=== PATIENT | female | born 1940 | race Caucasian/White ===

== ENCOUNTER 2017-01-25 06:39 | Inpatient (IN) | payer OTHER, MEDICARE ==
[2017-01-03 11:51] VITALS: Ht 167.6 cm; Wt 128.1 kg
--- NOTE | 2017-01-03 13:05 | PAT Medication Instructions ---
Service Date Jan 03, 2017. Current Home Medication List Adalimumab (Humira), 40 MG INJ EVERY OTHER WEEK Aspirin (Aspirin Ec), 81 MG PO QPM Atenolol (Tenormin), 25 MG PO QPM Benazepril (Lotensin), 20 MG PO QAM Calcium Ascorbate (Vitamin C), 1 TAB PO QDL Calcium Carbonate (Tums), 1 TAB PO QDD Cholecalciferol (Vitamin D3), 1 TAB PO BIDM Clonazepam (Klonopin), 0.5 MG PO BID PRN for Anxiety/Agitation Coenzyme Q10 (Ubidecarenone) (Co Q10), 2 CAP PO QDL Duloxetine HCl (Cymbalta), 1 CAP PO QAM Ferrous Sulfate (Slow Fe), 1 TAB PO BID Fiber (Fiber Select Gummies), 2 TAB PO QDD Folic Acid (Folvite), 1 TAB PO BID Hydrochlorothiazide (Hctz), 25 MG PO QAM Ibuprofen (Motrin), 600 MG PO TID PRN for Pain Lactobacillus Rhamnosus (GG) (Culturelle), 1 CAP PO QDL Methotrexate (Methotrexate), 2.5 MG PO WK Multivitamin (Multivitamin), 1 TAB PO QDD Pantoprazole (Protonix), 40 MG PO BIDM Potassium Ext Rel (Klor-Con), 10 MEQ PO QAM Ranitidine (Zantac), 150 MG PO QPM Ropinirole (Requip), 2 TAB PO HS Simvastatin (Zocor), 20 MG PO QPM Medication Instructions For Your Scheduled Surgery - Check with surgeon for instructions: Ibuprofen (Motrin), 600 MG PO TID PRN for Pain - 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: Methotrexate (Methotrexate), 2.5 MG PO WK Adalimumab (Humira), 40 MG INJ EVERY OTHER WEEK - Hold the following medications 2 weeks prior to surgery: Coenzyme Q10 (Ubidecarenone) (Co Q10), 2 CAP PO QDL - Hold the following medications the morning of surgery: Potassium Ext Rel (Klor-Con), 10 MEQ PO QAM Multivitamin (Multivitamin), 1 TAB PO QDD Hydrochlorothiazide (Hctz), 25 MG PO QAM Ferrous Sulfate (Slow Fe), 1 TAB PO BID Lactobacillus Rhamnosus (GG) (Culturelle), 1 CAP PO QDL Folic Acid (Folvite), 1 TAB PO BID Cholecalciferol (Vitamin D3), 1 TAB PO BIDM Calcium Ascorbate (Vitamin C), 1 TAB PO QDL Benazepril (Lotensin), 20 MG PO QAM - Take the following medications the morning of surgery with a sip of water: Pantoprazole (Protonix), 40 MG PO BIDM Duloxetine HCl (Cymbalta), 1 CAP PO QAM Clonazepam (Klonopin), 0.5 MG PO BID PRN for Anxiety/Agitation (if needed) - Hold the following medications as scheduled the night before surgery: Ropinirole (Requip), 2 TAB PO HS - Take the following medications as scheduled the night before surgery: Simvastatin (Zocor), 20 MG PO QPM Ranitidine (Zantac), 150 MG PO QPM Pantoprazole (Protonix), 40 MG PO BIDM Folic Acid (Folvite), 1 TAB PO BID Fiber (Fiber Select Gummies), 2 TAB PO QDD Clonazepam (Klonopin), 0.5 MG PO BID PRN for Anxiety/Agitation (if needed) Cholecalciferol (Vitamin D3), 1 TAB PO BIDM Calcium Carbonate (Tums), 1 TAB PO QDD Atenolol (Tenormin), 25 MG PO QPM Aspirin (Aspirin Ec), 81 MG PO QPM (okay to continue per surgeon) If you have any questions please call us at [phone] or [phone] or [phone]
--- NOTE | 2017-01-03 13:52 | DIAGNOSTIC IMAGING REPORT ---
CHEST PREADMISSION(PA/LAT) HISTORY:76 yearsFemalepreoperative exam COMPARISON: Cervical spine radiographs of same day TECHNIQUE: Frontal and lateral views of the chest FINDINGS: Cardiac silhouette is enlarged with atherosclerosis of the aorta. There is no pneumothorax, pleural effusion or focal airspace consolidation. There is eventration of the right hemidiaphragm. No overt pulmonary edema. Multilevel endplate changes are seen throughout the spine degenerative changes also seen within the shoulders. IMPRESSION: 1. Cardiomegaly without overt pulmonary edema. 2. Eventration of the right hemidiaphragm. The above report was generated using voice recognition software. It may contain grammatical, syntax or spelling errors. Electronically signed by: Jaya Ya M.D. 01/03/2017 1:51 PM Dictated Date/Time: 01/03/2017 1:50 PM
--- NOTE | 2017-01-03 13:53 | DIAGNOSTIC IMAGING REPORT ---
CERVICAL SPINE 2 OR 3 VIEWS HISTORY: Preoperative evaluation PREOP, RHEUMATOID ARTHRITIS COMPARISON: None. Findings: Flexion extension and neutral views of the cervical spine demonstrate moderate degenerative disc change primarily the mid to lower cervical region. There is no evidence for positional subluxation. IMPRESSION: Degenerative change. No evidence for positional subluxation The above report was generated using voice recognition software. It may contain grammatical, syntax or spelling errors. Electronically signed by: Lemuel Don M.D. 01/03/2017 1:51 PM Dictated Date/Time: 01/03/2017 1:50 PM
[2017-01-03 14:34] LABS: BASO % 0.1 %; BASO ABS # 0.01 K/uL (0-0.2); COMPLETE YES; EOS % 0.3 %; HEMATOCRIT 38.1 % (37-47); IG% 0.1 %; LYMPH % 8.2 %; LYMPH ABS # 0.55 K/uL (1.2-3.4); MEAN CELL VOLUME 93.8 fL (80-100); MEAN CORPUSCULAR HEMOGLOBIN 32.3 pg (25-34); MEAN CORPUSCULAR HGB CONC 34.4 g/dl (32-36); MEAN PLATELET VOLUME 9.1 fL (7.4-10.4); MONO % 1.5 %; NEUT % 89.8 %; PLATELET COUNT 348 K/uL (130-400); RED BLOOD COUNT 4.06 M/uL (4.2-5.4); WHITE BLOOD COUNT 6.68 K/uL (4.8-10.8)
[2017-01-03 14:40] LABS: PARTIAL THROMBOPLASTIN RATIO 1.1; PROTHROMBIN TIME (PATIENT) 10.2 SECONDS (9.0-12.0)
[2017-01-03 14:48] LABS: URINE APPEARANCE CLEAR (CLEAR); URINE BILIRUBIN NEG (NEG); URINE COLOR YELLOW; URINE NITRITE NEG (NEG); UROBILINOGEN NEG (NEG); ZZUR CULT IF INDIC CLEAN CATCH NO
[2017-01-03 14:59] LABS: BUN/CREATININE RATIO 19.6 (10-20); CALCIUM 9.2 mg/dl (8.5-10.1); CREATININE 0.76 mg/dl (0.60-1.20); POTASSIUM 4.4 mmol/L (3.5-5.1)
[2017-01-03 15:03] LABS: MANUAL MICROSCOPIC REQUIRED? NO; REVIEW REQ? NO
[2017-01-03 15:13] LABS: ESTIMATED AVERAGE GLUCOSE 111 mg/dl; HA1C FLAG Normal (Normal)
--- NOTE | 2017-01-03 16:00 | History and Physical ---
History & Physical Date Jan 03, 2017. Chief Complaint Left Knee Pain History of Present Illness Ms Melgar is a 76 year old female who is here for a follow up of left knee pain. She presents with pain on the left side. She states that the symptoms have been chronic non-traumatic. Patient is here today for pre-operative visit for her left knee, scheduled for left knee TKA to be performed by Dr. Herring on . The symptoms occur constantly with intermittent worsening. The problem is unchanged. Currently the patient states that the symptoms are moderate- severe. The pain is described as aching, discomforting and throbbing. The symptoms occur continuously. She rates her worst pain as 10/10. She rates her current pain as 7/10. The symptoms are aggravated by ascending stairs, daily activities, descending stairs, first steps while awake, movement, repetitive activities, sleeping in any position, squatting and walking. Yisel states that the symptoms are relieved by no specific activity. In addition to left knee pain the patient is also experiencing decreased mobility, difficulty bending, difficulty going to sleep, limping, nighttime awakening, pain, stiffness, tenderness and weakness. Pertinent negatives include chills and fever. The patient has had a previous x-ray. Prior NSAIDs include ibuprofen. She has been treated with a corticosteroid injection on the left side. Patient has been treated with previous visco supplementation. Past Medical/Surgical History Past Medical History 1. Hypertension 2. High Cholesterol 3. Sleep Apnea 4. Pulmonary Hypertension 5. Anxiety 6. h/o cardiac catherization May 2016 7. GERD 8. Morbid Obesity Additional History Hypertension: Yes Bleeding Tendencies: No Infectious Diseases: No Allergies Coded Allergies: No Known Allergies (Unverified , 01/03/17) Home Medications Scheduled Adalimumab (Humira), 40 MG INJ EVERY OTHER WEEK Aspirin (Aspirin Ec), 81 MG PO QPM Atenolol (Tenormin), 25 MG PO QPM Benazepril (Lotensin), 20 MG PO QAM Calcium Ascorbate (Vitamin C), 1 TAB PO QDL Calcium Carbonate (Tums), 1 TAB PO QDD Cholecalciferol (Vitamin D3), 1 TAB PO BIDM Coenzyme Q10 (Ubidecarenone) (Co Q10), 2 CAP PO QDL Duloxetine HCl (Cymbalta), 1 CAP PO QAM Ferrous Sulfate (Slow Fe), 1 TAB PO BID Fiber (Fiber Select Gummies), 2 TAB PO QDD Folic Acid (Folvite), 1 TAB PO BID Hydrochlorothiazide (Hctz), 25 MG PO QAM Lactobacillus Rhamnosus (GG) (Culturelle), 1 CAP PO QDL Methotrexate (Methotrexate), 2.5 MG PO WK Multivitamin (Multivitamin), 1 TAB PO QDD Pantoprazole (Protonix), 40 MG PO BIDM Potassium Ext Rel (Klor-Con), 10 MEQ PO QAM Ranitidine (Zantac), 150 MG PO QPM Ropinirole (Requip), 2 TAB PO HS Simvastatin (Zocor), 20 MG PO QPM Scheduled PRN Clonazepam (Klonopin), 0.5 MG PO BID PRN for Anxiety/Agitation Ibuprofen (Motrin), 600 MG PO TID PRN for Pain Physical Examination Skin: warm/dry, no rash Eyes: normal inspection, EOMI, sclerae normal Respiratory/Chest: lungs clear, normal breath sounds, no respiratory distress Cardiovascular: regular rate, rhythm, no edema, no murmur Abdomen / GI: normal bowel sounds, non tender, + pertinent finding (obesity) Addiitonal Comments: Left Knee Physical Exam Exam Findings Details Knee ROM L * Active ROM - Flexion: 115 degrees, Extension: 0 degrees, Factors: pain, Description: active painful range of motion. Passive ROM - Flexion: 115 degrees, Extension: 0 degrees, Factors: pain, Description: passive painful range of motion. Knee ROM R * Active ROM - Flexion: 135 degrees, Extension: 0 degrees, Factors: pain, Description: active painful range of motion. Passive ROM - Flexion: 135 degrees, Extension: 0 degrees, Factors: pain, Description: passive painful range of motion. Strength LE Normal Strength Description - Normal lower extremity: Bilateral. Knee * Inspection - Gait: antalgic. Alignment - Right: neutral, Left: valgus. Ecchymosis - Right: negative, Left: negative. Effusion - Right: mild, Left: mild. Swelling - Right: mild, Left: mild. Flexibility - Right: normal, Left: normal. Maximum tenderness - Right: medial joint line, lateral joint line, patella, Left: medial joint line, lateral joint line, patella. Patella exam - Crepitation - Right: mild, Left: mild. Patella position - Right: neutral, Left: neutral. Tilt - Right: equal, Left: equal. [facility]'s - lateral - Right: Positive, Left: Positive. Bev's - medial - Right: Positive, Left: Positive. Knee Comments No calf tenderness Knee Normal Inspection - Atrophy - Right: Absent, Left: Absent. Skin - Right: Normal, Left: Normal. Patella exam - Apprehension - Right: Negative, Left: Negative. Q-angle - Right: Normal, Left: Normal. Klever's - Right: Negative, Left: Negative. Posterior drawer - Right: Negative, Left: Negative. Anterior drawer - Right: Negative, Left: Negative. Valgus stress - Right: Negative, Left : Negative. Varus stress - Right: Negative, Left: Negative. Extensor lag - Right : Normal, Left: Normal. Neurovascular LE Normal Neurovascular examination including reflexes, sensation , and pulses is within normal limits. Left Knee X-ray Xrays reviewed of the Left knee showing findings consistent with degenerative joint disease including joint space narrowing, subchondral sclerosis and peripheral osteophyte formation. no acute bony pathology, overall valgus alignment. Impression: Severe degenerative joint disease of the left knee with valgus deformity, no acute bony pathology noted. Diagnosis Left Knee Osteoarthritis Further care discussed with patient and at this point in time has failed conservative measures and would like to proceed with a left total knee replacement. Plan on discharge will be home with home health physical therapy. DVT prophalaxis with TEDs, SCDs and will also place on aspirin 81 mg p.o. b.i.d. for a month postop. Patient will have follow up appointment in our office two weeks post op for staple/suture removal and re-evaluation. Patient otherwise has no other questions or concerns.
[2017-01-25] VITALS (9 sets, daily range): BP systolic 129–185; BP diastolic 82–100; PULSE 69–84; TEMP 36.5–36.9; O2SAT 94–100
[~2017-01-25] VITALS: Ht 167.6 cm; Wt 128.1 kg
[~2017-01-25 06:39] MED LIST: ACETAMINOPHEN 500 MG TAB PO SCH; ADAL1INJ INJ; ASPI81TA28 PO; ATEN-173 PO; BENA20TA14 PO; CALC500C3 PO; CALC500T72 PO; CEFAZOLIN 3000 MG/65 ML D5W 65 ML IV SCH; CHOL1000 PO; CLON0.5T3 PO; COEN1CAP28 PO; CYM/30 PO; CeleBREX 200 MG CAP PO SCH; DEXAMETHASONE 4 MG TAB PO SCH; FAMOTIDINE 20 MG TAB PO SCH; FERR142T PO; FIBE1CHW PO; FOLI1TAB7 PO; FURO20TA PO; GABAPENTIN 300 MG CAP PO SCH; IBUP600T44 PO; LACT1CAP3 PO; LACTATED RINGER'S 1000ML 1,000 ML IV SCH; LACTATED RINGER'S 1000ML IV SCH; METH2.5T PO; METOCLOPRAMIDE HCL 10 MG TAB PO SCH; MULT-506 PO; PANT40TA PO; POLY335019 PO; POTA20TA16 PO; ROPI1TAB PO; ROPIVACAINE 5MG/ML 30 ML 150 MG, BUPIVACAINE/EPINEPHR 0.5% MPF 30 ML, KETOROLAC TROMETH... INFIL SCH; SIMV20TA2 PO; ZNTT/150 PO
[2017-01-25] MEDS ORDERED: BUPIVACAINE 0.25% 30 ML VIAL ONE (06:44)
[2017-01-25] MEDS ORDERED: BUPIVACAINE 0.5 % 5 MG/1 ML PF 10ML VIAL ONE (06:44)
--- NOTE | 2017-01-25 06:57 | History & Physical Bridge Note ---
H&P Re-Evaluation Bridge Note: I have examined the patient, reviewed the History & Physical and in the interval since the performance of the History & Physical I have noted the following changes of clinical significance: No changes noted
[2017-01-25] MEDS ORDERED: FENTANYL CITRATE INJ 50 MCG/1 ML 2 ML VIAL ONE (07:27)
[2017-01-25] MEDS ORDERED: MIDAZOLAM HCL 1 MG/ML 2ML VIAL ONE ×2 (07:27)
[2017-01-25] MEDS ORDERED: EpHEDrine SULFATE INJ 50 MG/ML AMP IV PRN (07:30)
[2017-01-25] MEDS ORDERED: ONDANSETRON INJ 2 MG/ML 2 ML VIAL IV PRN ×2 (07:30→11:00)
[2017-01-25] MEDS ORDERED: FENTANYL CITRATE INJ 50 MCG/1 ML 2 ML VIAL IV PRN (07:30)
[2017-01-25] MEDS ORDERED: ATROPINE SULFATE 0.1 MG/ML 5ML SYR IV PRN (07:30)
[2017-01-25] MEDS ORDERED: BACITRACIN 50000 UNIT VIAL ONE (07:51)
[2017-01-25] MEDS ORDERED: POVIDONE-IODINE OP SOLN 30 ML BTL ONE (07:51)
[2017-01-25] MEDS ORDERED: ORTHO JOINT ANESTHETIC ONE (07:51)
[2017-01-25] MEDS ORDERED: CEFAZOLIN IV 3,000 MG/65 ML D5W IV ONE (08:18)
[2017-01-25] MEDS ORDERED: GABAPENTIN 300 MG CAP PO ONE (08:18)
[2017-01-25] MEDS ORDERED: METOCLOPRAMIDE HCL 10 MG TAB PO ONE (08:18)
[2017-01-25] MEDS ORDERED: FAMOTIDINE 20 MG TAB ONE (08:18)
[2017-01-25] MEDS ORDERED: DEXAMETHASONE 4 MG TAB ONE (08:18)
[2017-01-25] MEDS ORDERED: CeleBREX 200 MG CAP ONE (08:18)
[2017-01-25] MEDS ORDERED: ACETAMINOPHEN 500 MG TAB PO ONE (08:18)
[2017-01-25] MEDS ORDERED: LIDOCAINE HCL 2% 2 ML VIAL (20MG/ML) ONE (10:19)
[2017-01-25] MEDS ORDERED: PROPOFOL IV EMULSION 10 MG/ML 20 ML VIAL IV ONE (10:19)
--- NOTE | 2017-01-25 10:21 | [facility] Operative Report ---
Operative Report Operative Date Jan 25, 2017. Pre-Operative Diagnosis Severe Degenerative Joint Disease Left Knee Post-Operative Diagnosis Severe Degenerative Joint Disease Left Knee Procedure(s) Performed Left Total Knee Arthroplasty utilizing [employer] journey 2 patient matched size 5 femur 5 tibia 13 constrained Martha [address] 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 Description of Procedure After proper prepping and draping of the left lower extremity anterior midline incision was made over the region of the extensor extensor mechanism after meticulous hemostasis was obtained and maintained in subcutaneous tissues a medial parapatellar incision was made The patella was subluxed lateralward the medial lateral gutter were cleaned from any hypertrophic synovitis and scar tissue of the distal femoral block was placed and the distal femoral osteotomy cut was made subsequently the chamfers anterior and posterior osteotomy cuts were made utilizing the 4-in-1 block the tibia was subsequently subluxed anteriorward medial and ateral meniscal remnants were excised in their entirety remnants of the anterior and posterior cruciate ligaments were excised in their entirety excellent exposure of the proximal tibia was obtained the tibial osteotomy guide was placed on the proximal tibial osteotomy cut was made once again the knee was irrigated with copious amounts of sterile saline solution the patella was subsequently everted lateralward thickened scar tissue around the patella was removed the patella was subsequently cut utilizing a freehand technique and was drilled prepared for final preparation and placement of patella socially flexion-extension gaps were checked and the equal and symmetric trials were placed to the appropriate femoral and tibial trials with poly-spacer being placed for equal flexion and extension gaps and full range of motion including extension to 0 and flexion to 140 the trial components after having been taken to recovery range of motion was subsequently removed meticulous hemostasis was obtained and maintained subsequently a knee block injection of joint cocktail including ropivacaine 0.5% 150 mg. Bupivacaine 0.5 % epinephrine 1-200,030 mL's toradol 30 mg dexamethasone 4 mg ketamine 10 mg clonidine 100 micrograms normal saline solution 30 mg was infiltrated into the soft tissues of the posterior knee medial lateral gutters and periosteal synovium special attention was paid to protect neurovascular structures at all times subsequently trial components having been removed the knee was irrigated with sterile saline solution. debris was removed the proximal tibia was subsequently prepared and was made ready for the placement of the tibial component tibial component was also cemented and tamped into position the femoral component was subsequently placed and cemented in the position the patellar component was subsequently cemented in position because hemostasis once again obtained and maintained wound having been thoroughly irrigated with debridement and debridement lavage was performed as well as a medial parapatellar incision closed with #1 Vicryl in interrupted fashion subcutaneous was closed with #2 Vicryl skin was closed with skin clips. PA-C was necessary for prepping and drapping as well as wound closure of deep fascia Sub cutaneous tissue and skin and was necessary for the case. A sterile compressive dressing was placed patient was taken to recovery in stable condition of report dictated by Nima I attest to the content of the Intraoperative Record and any orders documented therein. Any exceptions are noted below. I attest to the content of the Intraoperative Record and any orders documented therein. Any exceptions are noted below.
[2017-01-25] MEDS ORDERED: TRAMADOL HCL 50 MG TAB PO PRN (11:00)
[2017-01-25] MEDS ORDERED: MoRPHine SULFATE 4 MG/ML 1 ML CARP\\VIAL IV PRN (11:00)
[2017-01-25] MEDS ORDERED: CLONAZEPAM 0.5 MG TAB PO PRN (11:00)
[2017-01-25] MEDS ORDERED: MAGNESIUM HYDROXIDE SUSP 30 ML UDC PO PRN (11:00)
[2017-01-25] MEDS ORDERED: BISACODYL 10 MG SUPP PR PRN (11:00)
[2017-01-25] MEDS ORDERED: ALUMINUM/MAGNESIUM/SIMETH (MAALOX MAX) 30 ML UDC PO PRN (11:00)
[2017-01-25] MEDS ORDERED: MoRPHine SULFATE 2 MG/ML CARP IV PRN (11:00)
[2017-01-25] MEDS ORDERED: NON-FORMULARY MEDICATION (Coenzyme Q10 (Ubidecarenone) (Co Q10) 2 CAP) PO SCH (11:00)
--- NOTE | 2017-01-25 11:26 | DIAGNOSTIC IMAGING REPORT ---
LEFT KNEE 2 VIEWS History: Left total knee arthroplasty. Degenerative arthritis. Postop. FINDINGS: The patient is status post a left total knee arthroplasty. The hardware is intact. No fracture or dislocation. Skin edwin and surgical drains are in place. IMPRESSION: Left total knee arthroplasty. No evidence for hardware complication. Electronically signed by: Thompson Carpenter M.D. 01/25/2017 11:25 AM Dictated Date/Time: 01/25/2017 11:24 AM
--- NOTE | 2017-01-25 12:18 | Anesthesiology Progress Note ---
Anesthesia Post Op Note Date & Time Jan 25, 2017 at 12:18 Vital Signs Pain Intensity: 0 Vital Signs Past 12 Hours Date Time Temp Pulse Resp B/P (MAP) Pulse Ox O2 Delivery O2 Flow Rate FiO2 01/25/17 12:10 36.7 73 16 125/88 100 Nasal Cannula 2 01/25/17 12:00 36.7 72 16 161/92 100 Nasal Cannula 2 01/25/17 11:50 36.7 73 16 147/104 100 Nasal Cannula 2 01/25/17 11:40 36.7 73 16 163/91 100 Nasal Cannula 4 01/25/17 11:30 73 16 167/97 100 Nasal Cannula 4 01/25/17 11:20 74 16 153/87 100 Nasal Cannula 4 01/25/17 11:10 78 16 134/81 100 Nasal Cannula 4 01/25/17 11:00 76 16 143/83 100 Nasal Cannula 4 01/25/17 10:54 36.4 76 16 141/80 100 Mask 10 01/25/17 08:04 36.5 69 20 185/100 98 Room Air Notes Mental Status: alert / awake / arousable, participated in evaluation Pt Amnestic to Procedure: Yes Nausea / Vomiting: adequately controlled Pain: adequately controlled Airway Patency, RR, SpO2: stable & adequate BP & HR: stable & adequate Hydration State: stable & adequate Neuraxial Anesthesia: was administered, sensory block is resolving Anesthetic Complications: no major complications apparent
[2017-01-25] MEDS: TRANEXAMIC ACID INJ 1,000 MG in SODIUM CHLORIDE 0.9% 100ML 100 ML IV SCH (12:27)
[2017-01-25] MEDS: SODIUM CHLORIDE 0.9% 1000ML 1,000 ML IV SCH ×2 (12:42→20:45)
[2017-01-25] MEDS: KETOROLAC TROMETHAMINE 15 MG/ML VIAL IV. SCH ×2 (14:27→20:44)
[2017-01-25] MEDS: ACETAMINOPHEN 500 MG TAB PO SCH ×2 (14:43→22:05)
[2017-01-25] MEDS: CEFAZOLIN IV 2,000 MG in DEXTROSE 5% 50ML 50 ML IV SCH (17:37)
[2017-01-25] MEDS: PANTOprazole SOD 40 MG TAB PO SCH (17:38)
[2017-01-25] MEDS: FERROUS GLUCONATE 324 MG TAB PO SCH (17:38)
[2017-01-25] MEDS: CHOLECALCIFEROL 1000 INTER.UNIT TAB PO SCH (17:58)
[2017-01-25] MEDS: DOCUSATE SODIUM 100 MG CAP PO SCH (20:45)
[2017-01-25] MEDS: ASPIRIN 81 MG ECTAB PO SCH (20:46)
[2017-01-25] MEDS: OXYCODONE HCL 10 MG TABCR (OXYCONTIN) PO SCH (20:46)
[2017-01-25] MEDS: ROPINIROLE HCL 1 MG TAB PO SCH (20:47)
[2017-01-25] MEDS: SENNA 8.6 MG TAB PO SCH (20:48)
[2017-01-25] MEDS: SIMVASTATIN 20 MG TAB PO SCH (20:49)
[2017-01-25] MEDS: OXYCODONE HCL IR 5 MG TAB (IMMEDIATE RELEASE) PO PRN (22:04)
[2017-01-26] VITALS (7 sets, daily range): BP systolic 100–162; BP diastolic 64–81; PULSE 68–76; TEMP 36.4–36.9; O2SAT 95–98
[2017-01-26] MEDS: CEFAZOLIN IV 2,000 MG in DEXTROSE 5% 50ML 50 ML IV SCH (01:25)
[2017-01-26] MEDS: KETOROLAC TROMETHAMINE 15 MG/ML VIAL IV. SCH ×2 (01:25→07:32)
[2017-01-26 06:15] LABS: HEMATOCRIT 30.8 % (37-47); MEAN CELL VOLUME 98.7 fL (80-100); MEAN CORPUSCULAR HEMOGLOBIN 32.1 pg (25-34); MEAN CORPUSCULAR HGB CONC 32.5 g/dl (32-36); MEAN PLATELET VOLUME 9.1 fL (7.4-10.4); PLATELET COUNT 281 K/uL (130-400); RED BLOOD COUNT 3.12 M/uL (4.2-5.4); WHITE BLOOD COUNT 10.81 K/uL (4.8-10.8)
[2017-01-26] MEDS: ACETAMINOPHEN 500 MG TAB PO SCH ×3 (06:27→22:16)
[2017-01-26] MEDS: SODIUM CHLORIDE 0.9% 1000ML 1,000 ML IV SCH (06:27)
[2017-01-26 06:46] LABS: CALCIUM 8.5 mg/dl (8.5-10.1); POTASSIUM 4.3 mmol/L (3.5-5.1)
--- NOTE | 2017-01-26 06:56 | Orthopedic Progress Note ---
Orthopedic Progress Note Date of Service Jan 26, 2017. Subjective Post OP Day: 1 (s/p Left TKA) Reports: feeling well, pain controlled w PO medications, Denies: complaints, chest pain, SOB, nausea / vomiting, light headedness, calf pain Objective calves soft nontender, N/V intact, capillary refill less than 2 sec., dressing C /D/I, A&O x3, toes mobile Date Time Temp Pulse Resp B/P (MAP) Pulse Ox O2 Delivery O2 Flow Rate FiO2 01/26/17 03:39 36.9 69 16 129/80 (96) 95 Room Air 01/25/17 23:51 Room Air 01/25/17 22:54 36.9 75 18 129/83 (98) 95 Room Air 01/25/17 19:50 36.8 84 16 158/85 (109) 96 Room Air 01/25/17 19:30 96 Room Air 01/25/17 16:00 Nasal Cannula 2.0 01/25/17 15:29 36.7 78 18 147/86 (106) 98 Nasal Cannula 2.0 01/25/17 14:23 36.7 80 18 137/88 (104) 94 Nasal Cannula 2.0 01/25/17 13:34 36.6 81 18 140/82 (101) 94 Nasal Cannula 2.0 01/25/17 13:05 36.8 72 19 154/87 (109) 99 Nasal Cannula 2.0 01/25/17 12:35 36.9 78 18 167/93 (117) 100 Nasal Cannula 2.0 01/25/17 12:35 Nasal Cannula 2.0 01/25/17 12:35 100 Nasal Cannula 2.0 01/25/17 12:10 36.7 73 16 125/88 100 Nasal Cannula 2 01/25/17 12:00 36.7 72 16 161/92 100 Nasal Cannula 2 01/25/17 11:50 36.7 73 16 147/104 100 Nasal Cannula 2 01/25/17 11:40 36.7 73 16 163/91 100 Nasal Cannula 4 01/25/17 11:30 73 16 167/97 100 Nasal Cannula 4 01/25/17 11:20 74 16 153/87 100 Nasal Cannula 4 01/25/17 11:10 78 16 134/81 100 Nasal Cannula 4 01/25/17 11:00 76 16 143/83 100 Nasal Cannula 4 01/25/17 10:54 36.4 76 16 141/80 100 Mask 10 01/25/17 08:04 36.5 69 20 185/100 98 Room Air Laboratory Results 24 Hours: Test 01/26/17 05:40 Hematocrit 30.8 % Hemoglobin 10.0 g/dL Assessment & Plan Assessment: POD #1 s/p Left TKA -PT/OT -dvt proph with maty/scd/asa -plan for d/c home with [facility] when stable 1. Hypertension 2. High Cholesterol 3. Sleep Apnea 4. Pulmonary Hypertension 5. Anxiety 6. h/o cardiac catherization May 2016 7. GERD 8. Morbid Obesity Inhouse Planning DVT Prophylaxis: TEDs, SCDs, ASA Discharge Planning Discharge Planning: home with home health DVT Prophylaxis: TEDs, SCDs, ASA Therapy: Physical Therapy
[2017-01-26] MEDS: PANTOprazole SOD 40 MG TAB PO SCH ×2 (07:30→17:33)
--- NOTE | 2017-01-26 07:46 | Anesthesiology Progress Note ---
Anesthesia Post Op Note Date & Time Jan 26, 2017 at 07:46 Vital Signs Pain Intensity: 6 Vital Signs Past 12 Hours Date Time Temp Pulse Resp B/P (MAP) Pulse Ox O2 Delivery O2 Flow Rate FiO2 01/26/17 03:39 36.9 69 16 129/80 (96) 95 Room Air 01/25/17 23:51 Room Air 01/25/17 22:54 36.9 75 18 129/83 (98) 95 Room Air 01/25/17 19:50 36.8 84 16 158/85 (109) 96 Room Air Notes Mental Status: alert / awake / arousable Pt Amnestic to Procedure: Yes Nausea / Vomiting: adequately controlled Pain: adequately controlled Airway Patency, RR, SpO2: stable & adequate BP & HR: stable & adequate Hydration State: stable & adequate Neuraxial Anesthesia: sensory block resolved Anesthetic Complications: no major complications apparent
[2017-01-26] MEDS: FERROUS GLUCONATE 324 MG TAB PO SCH ×3 (08:39→17:33)
[2017-01-26] MEDS: DOCUSATE SODIUM 100 MG CAP PO SCH ×2 (08:40→20:55)
[2017-01-26] MEDS: CHOLECALCIFEROL 1000 INTER.UNIT TAB PO SCH ×2 (08:40→17:33)
[2017-01-26] MEDS: DULOXETINE (CYMBALTA) 30 MG CAP PO SCH (08:41)
[2017-01-26] MEDS: ASPIRIN 81 MG ECTAB PO SCH ×2 (08:41→20:55)
[2017-01-26] MEDS: OXYCODONE HCL 10 MG TABCR (OXYCONTIN) PO SCH ×2 (08:41→20:55)
[2017-01-26] MEDS: MULTIVITAMIN TAB PO SCH (08:42)
[2017-01-26] MEDS: POTASSIUM CHLORIDE 10 MEQ TABCR PO SCH (08:42)
[2017-01-26] MEDS: ENALAPRIL MALEATE 10 MG TAB PO SCH (08:43)
[2017-01-26] MEDS: OXYCODONE HCL IR 5 MG TAB (IMMEDIATE RELEASE) PO PRN ×3 (08:44→19:34)
[2017-01-26] MEDS ORDERED: PANTOprazole SOD 40 MG TAB PO SCH (09:00)
--- NOTE | 2017-01-26 17:27 | Discharge Instructions ---
Discharge Instructions Date of Service Jan 26, 2017. Admission Reason for Admission: Left Knee Osteoarthritis Discharge Discharge Diagnosis / Problem: Left Total Knee Replacement Discharge Goals Goal(s): Decrease discomfort, Improve function, Increase independence Activity Recommendations Activity Limitations: as noted below Weightbearing Status: Left weightbearing (as tolerated) . Instructions / Follow-Up Instructions / Follow-Up ACTIVITY RECOMMENDATIONS: SELF CARE INSTRUCTIONS AFTER TOTAL KNEE REPLACEMENT A. You may need to continue a physical therapy program after discharge from the hospital. There are several options available to you. Your doctor will assist you in selecting the best one for you. 1. An out-patient facility 2 to 3 times a week for therapy or home therapy. 2. Continue working on all exercises taught to you in the hospital. Your goals should be to increase bending of your knee to 90 degrees and beyond and to fully straighten your knee. B. You may progress at your own pace from walking with a walker or crutches to a cane; then to no assistive devices. C. Make walking a part of your daily routine. Be up as much as comfortable with rest periods throughout the day. Rest with leg elevation is very important. Use the ice wrap frequently for the first 3-4 weeks. D. There are no restrictions on activities. You may ride in a car, shop, participate in casino floor person and all social activities. E. Wear the long elastic stockings (JAELYN hose) 20 hours a day for 2 weeks after surgery. They can be removed several times a day for laundering and for a bath. F. You may shower, no tub baths until cleared by your doctor. SPECIAL CARE INSTRUCTIONS: VERY IMPORTANT TO READ AND REVIEW A. There are a few signs you need to watch for after you are home. Call [facility] [place] if you notice any of the followin. Increased severe knee pain. Some pain is expected especially when you exercise. 2. Increased swelling in your leg or knee; pain or swelling of the calf muscle in either lower leg. 3. Any fluid drainage from the incision. 4. Shortness of breath or chest pain. B. Please call [facility] at if you have any concerns or questions about your operation or recovery. The doctor or his nurse will return your call promptly. C. You must take antibiotics before dental work, bladder, bowel or other surgery. Your doctor will provide you with a permanent care to carry describing this precaution. IMPORTANT: * REMEMBER TO TAKE ASPIRIN, 81 MG, TWICE DAILY FOR 4 WEEKS UNLESS OTHERWISE DIRECTED. THIS IS YOUR BLOOD THINNER. * HIGH RISK PATIENTS MAY BE PRESCRIBED A STRONGER BLOOD THINNER. THIS WILL BE PROVIDED AT DISCHARGE. * CALL IF INCREASED PAIN, REDNESS, DRAINAGE OR FEVER GREATER THAT 101. * WEAR JAELYN HOSE 20 HOURS PER DAY FOR 2 WEEKS. * YOU MAY HAVE A LARGE BAND-AID LIKE DRESSING (SILVERON). THIS WILL REMAIN ON YOUR INCISION FOR 7 DAYS, THEN CAN BE REMOVED. IF INCISION IS LEAKING THROUGH DRESSING, CALL THE OFFICE . Prevena- This is a large suction dressing covering your incision. This will help pull any excess drainage from the wound and allow your incision to heal properly. You may shower with this if you can keep the unit outside of the shower. If any bleeding or leakage is noted please call your doctor's office. This will remain on your incision for 7 days and then should be removed. This can be done yourself or by the home nursing staff if applicable. The entire unit is disposable once removed. Once removed, keep incision clean and dry. If redness or drainage is noted, please call your surgeon. FOLLOW UP VISIT: If appointment is not already scheduled: Please call [facility] [place] to make a follow-up appointment for 2 weeks after your surgery at . Current Hospital Diet Patient's current hospital diet: Regular Diet Discharge Diet Recommended Diet: Regular Diet Procedures Procedures Performed: Left Total Knee Arthroplasty utilizing [employer] journey 2 patient matched size 5 femur 5 tibia 13 constrained Martha 35 oval patella Pending Studies Studies pending at discharge: no Laboratory Results Hemoglobin A1c Test 01/03/17 13:10 Range/Units Estimated Average Glucose 111 mg/dl Hemoglobin A1c 5.5 4.5-5.6 % Medical Emergencies . Who to Call and When: Medical Emergencies: If at any time you feel your situation is an emergency, please call 911 immediately. . Non-Emergent Contact Non-Emergency issues call your: Primary Care Provider . "Provider Documentation" section prepared by Lemuel Rosales. . VTE Core Measure Inpt VTE Proph given/why not?: Other Anticoagulation, T.E.D. Stockings, SCD's [place] Drug Monitoring Program Search Results: patient reviewed within database, no issues identified
[2017-01-26] MEDS ORDERED: OXYSR10 PO (17:31)
[2017-01-26] MEDS ORDERED: ASPEC81 PO (17:31)
[2017-01-26] MEDS ORDERED: ACET-24 PO (17:31)
[2017-01-26] MEDS ORDERED: RXC5 PO (17:31)
[2017-01-26] MEDS: ROPINIROLE HCL 1 MG TAB PO SCH (20:56)
[2017-01-26] MEDS: SENNA 8.6 MG TAB PO SCH (20:56)
[2017-01-26] MEDS: SIMVASTATIN 20 MG TAB PO SCH (20:57)
[2017-01-27] MEDS: OXYCODONE HCL IR 5 MG TAB (IMMEDIATE RELEASE) PO PRN ×3 (00:35→13:08)
[2017-01-27] MEDS: ACETAMINOPHEN 500 MG TAB PO SCH (06:00)
[2017-01-27 06:04] VITALS: BP 117/72; PULSE 75; TEMP 37.2
--- NOTE | 2017-01-27 06:50 | Orthopedic Progress Note ---
Orthopedic Progress Note Date of Service Jan 27, 2017. Subjective Post OP Day: 2 (s/p Left TKA) Reports: feeling well, pain controlled w PO medications, Denies: complaints, chest pain, SOB, nausea / vomiting, light headedness, calf pain Objective calves soft nontender, N/V intact, capillary refill less than 2 sec., dressing C /D/I (prevena intact), A&O x3, toes mobile Date Time Temp Pulse Resp B/P (MAP) Pulse Ox O2 Delivery O2 Flow Rate FiO2 01/27/17 06:04 37.2 75 16 117/72 (87) 01/27/17 00:17 Room Air 01/26/17 22:55 36.6 68 18 100/66 (77) 95 Room Air 01/26/17 20:53 72 114/67 (83) 96 Room Air 01/26/17 16:00 Room Air 01/26/17 15:48 36.6 73 16 105/64 (78) 96 Room Air 01/26/17 11:37 36.8 76 18 162/81 (108) 98 Room Air 01/26/17 10:43 96 Room Air 01/26/17 07:53 36.4 71 18 133/74 (93) 96 01/26/17 07:15 Room Air Assessment & Plan Assessment: POD #2 s/p Left TKA -PT/OT -dvt proph with maty/scd/asa -plan for d/c home with [facility] when stable 1. Hypertension 2. High Cholesterol 3. Sleep Apnea 4. Pulmonary Hypertension 5. Anxiety 6. h/o cardiac catherization May 2016 7. GERD 8. Morbid Obesity Discharge Planning Discharge Planning: home with home health DVT Prophylaxis: TEDs, SCDs, ASA Therapy: Physical Therapy
[2017-01-27] MEDS: PANTOprazole SOD 40 MG TAB PO SCH (07:22)
[2017-01-27] MEDS: ASPIRIN 81 MG ECTAB PO SCH (07:23)
[2017-01-27] MEDS: OXYCODONE HCL 10 MG TABCR (OXYCONTIN) PO SCH (07:23)
[2017-01-27] MEDS: DULOXETINE (CYMBALTA) 30 MG CAP PO SCH (07:23)
[2017-01-27] MEDS: FERROUS GLUCONATE 324 MG TAB PO SCH ×2 (07:23→13:08)
[2017-01-27] MEDS: CHOLECALCIFEROL 1000 INTER.UNIT TAB PO SCH (07:24)
[2017-01-27] MEDS: MULTIVITAMIN TAB PO SCH (07:24)
[2017-01-27] MEDS: DOCUSATE SODIUM 100 MG CAP PO SCH (07:24)
[2017-01-27] MEDS: POTASSIUM CHLORIDE 10 MEQ TABCR PO SCH (07:24)
[2017-01-27] MEDS: ENALAPRIL MALEATE 10 MG TAB PO SCH (07:25)
[2017-01-27 08:03] VITALS: BP 117/74; PULSE 70; TEMP 36.5; O2SAT 100
[2017-01-27 08:14] VITALS: O2SAT 100
[2017-01-27 12:45] VITALS: BP 117/74; PULSE 70; TEMP 36.5; O2SAT 100
--- NOTE | 2017-01-28 13:43 | DISCHARGE SUMMARY ---
DISCHARGE DIAGNOSIS: Degenerative joint disease left knee. SECONDARY DIAGNOSES: Hypertension, hypercholesterolemia, sleep apnea, pulmonary hypertension, anxiety, history of cardiac catheterization in 2016, gastroesophageal reflux disease, morbid obesity. CONSULTS: None. COMPLICATIONS: None. PROCEDURES: Left total knee arthroplasty performed by Dr. Herring on 01/25/2017. BRIEF HISTORY: As dictated in the history and physical. HOSPITAL SUMMARY: The patient was admitted on the above date and had the above-noted surgery performed which he tolerated well. On first postoperative day, she was feeling well and pain was controlled. She had no complaints. Calves were soft and nontender, neurovascularly intact. Dressings clean, dry and intact. Toes were mobile. Vital signs were stable. She was afebrile. Hemoglobin was 10.0 and she was started on physical therapy protocol and continued on DVT prophylaxis and pain management. By her second postoperative day, she was feeling well and had no complaints. Pain was controlled. Calves were nontender, neurovascularly intact. Dressings clean, dry and intact. Toes were mobile. Vital signs were stable. She was afebrile. She was progressing with physical therapy and it was felt that she could be discharged to home with home health services. For further review, please see chart. LAB AND X-RAY DATA: As per chart. DISCHARGE INSTRUCTIONS: The patient was discharged to home on 01/27/2017. DIET: Regular. ACTIVITY: Weightbearing as tolerated left lower extremity. Follow TK instruction sheets and special care instructions as noted. Follow up with Dr. Herring in 2 weeks. The patient to call for appointment if one has not been made for you. DISCHARGE MEDICATIONS: Acetaminophen 1000 mg p.o. q. 8 hours, aspirin 81 mg p.o. b.i.d., OxyContin 10 mg p.o. q. 12 hours, oxycodone 5-10 mg p.o. q. 4 hours p.r.n. Resume home meds as listed. Stop taking Humira, ibuprofen, methotrexate. After 30 days stop taking your aspirin tablet twice daily and resume once daily dosing.
== END 2017-01-27 14:07 | disposition home health service (06) | DRG 470 ==
LOC: C.ACU 06:39 → C.3E 11:07 → ENRESERV 11:31
PROVIDERS: ADMIT Orthopaedic Surgery; ATTEND Orthopaedic Surgery
PROC: 0SRD0J9 Replacement of Left Knee Joint with Synthetic Substitute, Cemented, Open Approach (ICD-10-PCS; principal; 2017-01-25 09:00)
DX: M17.12 Unilateral primary osteoarthritis, left knee (principal); I10 Essential (primary) hypertension; E78.5 Hyperlipidemia, unspecified; I27.2 Other secondary pulmonary hypertension; K21.9 Gastro-esophageal reflux disease without esophagitis; E66.01 Morbid (severe) obesity due to excess calories; Z79.82 Long term (current) use of aspirin; G47.30 Sleep apnea, unspecified; Z79.899 Other long term (current) drug therapy

== ENCOUNTER 2018-09-26 05:45 | Inpatient (IN) ==
--- NOTE | 2018-09-11 10:58 | Anesthesiology Consultation ---
Date of Service September 11, 2018 Assessment & Plan (1) Encounter for pre-operative examination: Chart Review Chart Review: Acceptable Risk for Surgery and Patient seen in Pre Admission Testing Consults Requested cardiac (Dr. Peterson) Note was received from Dr Peterson stating "She has not been seen since March of 2018, but if she is clinically unchanged since then, she is a reasonable candidate for the proposed surgery at a low to at most intermediate risk." Teaching & Discussion Pre-Anesthesia Teaching/Discussion Notes: Instructed NPO after midnight before surgery, except medications with 15 cc of water. Medication instructions provided according to the PAT guidelines. History Surgery Operation Date: 09/26/18 10:05 Proposed Procedures p Right Total Knee Arthroplasty - Pieter Herring DO Height/Weight Height: 5 ft 7 in Weight: 132.4 kg Allergies Allergy/AdvReac Type Severity Reaction Status Date / Time No Known Allergies Allergy Unverified 09/04/18 13:57 Medications Home Medications Medication Instructions Recorded Confirmed Last Taken Culturelle 1 cap PO QAM 09/04/18 09/04/18 Unknown Multivitamin Gummies 1 dose PO QPM 09/04/18 09/04/18 Unknown adalimumab [Humira] 1 dose SUBCUT UD 09/04/18 09/04/18 Unknown amlodipine 2.5 mg PO QAM 09/04/18 09/04/18 Unknown ascorbic acid (vitamin C) [Vitamin 500 mg PO QAM 09/04/18 09/04/18 Unknown C] aspirin 81 mg PO HS 09/04/18 09/04/18 Unknown benazepril 20 mg PO QAM 09/04/18 09/04/18 Unknown calcium carbonate [Calcium 500] 500 mg PO HS 09/04/18 09/04/18 Unknown carvedilol 3.125 mg PO BID 09/04/18 09/04/18 Unknown cholecalciferol (vitamin D3) 2,000 unit PO QAM 09/04/18 09/04/18 Unknown [Vitamin D3] clonazepam 0.5 mg PO DAILY PRN 09/04/18 09/04/18 Unknown cyanocobalamin (vitamin B-12) 1,000 mcg PO QAM 09/04/18 09/04/18 Unknown [Vitamin B-12] duloxetine 30 mg PO QAM 09/04/18 09/04/18 Unknown ferrous sulfate [Slow Fe] 142 mg PO Q OTHER DAY 09/04/18 09/11/18 Unknown folic acid 2 mg PO QPM 09/04/18 09/04/18 Unknown furosemide 40 mg PO QAM 09/04/18 09/04/18 Unknown inulin [Fiber Gummies] 1 dose PO QPM 09/04/18 09/04/18 Unknown methotrexate sodium 8 tab PO WK 09/04/18 09/04/18 Unknown pantoprazole 40 mg PO QAM 09/04/18 09/04/18 Unknown polyethylene glycol 3350 [Miralax] 17 g PO HS 09/04/18 09/04/18 Unknown potassium chloride [Klor-Con 10] 10 meq PO QAM 09/04/18 09/04/18 Unknown ranitidine HCl 150 mg PO HS PRN 09/04/18 09/04/18 Unknown ropinirole [Requip] 2 mg PO HS 09/04/18 09/04/18 Unknown simvastatin 20 mg PO PM 09/04/18 09/04/18 Unknown Past Medical History Medical History AAA (abdominal aortic aneurysm) PCP MONITORING Anxiety Cardiomegaly Chronic constipation GERD (gastroesophageal reflux disease) Glaucoma RT EYE Hiatal hernia History of benign breast biopsy History of migraine History of recent steroid use RECENTLY PRESCRIBED PREDNISONE FOR RA x 3 WEEKS. LAST DOSE 08/28/18 History of squamous cell carcinoma Hyperlipidemia Hypertension Mitral regurgitation Mild to Moderate Osteoarthritis Pulmonary hypertension Moderate (Pulmonary Artery Systolic Pressure - 52-57 mmHg) Raynaud's disease Restless leg syndrome Rheumatoid arthritis Sleep apnea DOES NOT TOLERATE CPAP Tricuspid regurgitation Moderate Past Family History Family History Mother Family history of diabetes mellitus Past Surgical History Surgical History History of cardiac cath 2016 - [facility] - NO STENTS/ANGIOPLASTY History of colonoscopy History of esophagogastroduodenoscopy (EGD) History of eye surgery RT EYE X 2 - LASER SECONDARY TO GLAUCOMA History of foot surgery RT History of squamous cell carcinoma excision History of total knee replacement LEFT Past Anesthesia History No Hx of Anesthesia Complications and No Family Hx of Anesthesia Complications History of PONV No Motion Sickness Screening History of Motion Sickness: No (ONLY IN CHILDHOOD) Social History Smoking Status: Never smoker Do You Dip or Chew Tobacco: No Hx Alcohol Use: No Hx Substance Use: No substance use type: does not use Exercise / Class Metabolic Activity III < 4 Walking/Shop/Light housework (Able to climb stairs one at a time. Denies CP or SOB. ) Review of Systems Patient denies chest pain, shortness of breath, dyspnea on exertion, cough, wheezing, palpitations. +joint pain (knee, toes) +acid reflux (mostly controlled with medications and diet) Physical Exam Vital Signs BP: 125/80 P: 71 R: 14 T: 97.8 SPO2: 98% on RA Constitutional + morbidly obese ENMT Mouth: + dentures (upper and lower) and + edentulous Thyromental Distance: > or= 3.5 Finger Breadths (4) Mallampati Class: II Neck normal visual inspection and trachea midline; neck extension not limited Respiratory normal respiratory effort Auscultation: lungs clear to auscultation bilaterally Cardiovascular Rate/Rhythm: regular rate and regular rhythm Heart Sounds: + murmur (3/6 murmur) Vessels: no carotid bruit Neurologic moves all extremities Psychiatric Orientation: alert and oriented x 3 Testing Electrocardiogram Date: 09/11/18 Sinus rhythm at 71 bpm with 1st degree AV block. Incomplete RBBB. When compared with ECG of 01/03/17, no significant change was found. Chest X-Ray Date: 09/11/18 Findings: + NAD and + cardiomegaly FINDINGS: The heart remains enlarged. There is stable elevation/eventration right hemidiaphragm. There is mild chronic interstitial thickening. There is no lobar consolidation. There are no pleural effusions. IMPRESSION: Stable cardiomegaly. No acute findings. Echocardiogram Date: 04/12/18 EF: 55-60% LV Function: normal 1. Moderate LVH. Normal wall motion. Normal left ventricular systolic function. 2. This is mild aortic stenosis, trace aortic insufficiency, mild to moderate mitral regurgitation, moderate tricuspid regurgitation, and mild pulmonic insufficiency. 3. Moderate pulmonary hypertension. (Pulmonary Artery Systolic Pressure - 52-57 mmHg) 4. Mild diastolic dysfunction with impaired relaxation (Grade I). Stress Test Date: 05/05/16 Type: nuclear (Lexiscan) Resting EF: 57% Based upon EKG criteria, this test is negative. Based upon the nuclear imaging findings, there is apical ischemia. Study is abnormal. (Patient had a heart cath to follow up on 05/25/16) Cardiac Catheterization Date: 05/25/16 Findings: + normal Angiographically normal coronary arteries, normal left ventriculogram, Moderate pumonary HTN, Moderate mitral regurgitation. Recommendations: Continue to optimize medical therapy and risk factor reduction for primary prevention of coronary artery disease. Cervical Spine Date: 09/11/18 FINDINGS: C7 is partially obscured on this exam. There is no evidence for C1-C2 instability during flexion or extension. There is moderate to severe multilevel disc space narrowing, osteophytosis and facet arthrosis. IMPRESSION: 1. No evidence for cervical spine instability during flexion and extension. 2. Moderate to severe multilevel degenerative disc disease and facet arthrosis. Laboratory Results 09/11/18 11:44 09/11/18 11:44 Blood Type B Positive 09/11/18 11:44 Antibody Screen NEGATIVE 09/11/18 11:44 PT 10.1 Seconds (9.0-12.0) 09/11/18 11:44 INR 1.0 (0.9-1.1) 09/11/18 11:44 APTT 26.7 Seconds (21.0-31.0) 09/11/18 11:44 Hemoglobin A1c 5.5 % (4.5-5.6) 09/11/18 11:44 Urine Color Yellow 09/11/18 Unknown Urine Appearance Clear (Clear) 09/11/18 Unknown Urine pH 7.5 (4.5-7.5) 09/11/18 Unknown Ur Specific [place] 1.009 (1.000-1.030) 09/11/18 Unknown Urine Protein Negative (Negative) 09/11/18 Unknown Urine Glucose (UA) Negative (Negative) 09/11/18 Unknown Urine Ketones Negative (Negative) 09/11/18 Unknown Urine Nitrite Negative (Negative) 09/11/18 Unknown Ur Leukocyte Esterase Negative (Negative) 09/11/18 Unknown 09/11/18 Unknown Urine Culture - Final Urine,Clean Catch Lactobacillus species
--- NOTE | 2018-09-11 10:58 | PAT Medication Instructions ---
Medication Instructions Date of Service September 11, 2018 Home Medications Culturelle 1 cap PO QAM Multivitamin Gummies 1 dose PO QPM adalimumab [Humira] 1 dose SUBCUT UD amlodipine 2.5 mg PO QAM ascorbic acid (vitamin C) 500 mg PO QAM aspirin 81 mg PO HS benazepril 20 mg PO QAM calcium carbonate [Calcium 500] 500 mg PO HS carvedilol 3.125 mg PO BID cholecalciferol (vitamin D3) 2,000 unit PO QAM clonazepam 0.5 mg PO DAILY NEEDED cyanocobalamin (vitamin B-12) 1,000 mcg PO QAM duloxetine 30 mg PO QAM ferrous sulfate [Slow Fe] 142 mg PO HS folic acid 2 mg PO QPM furosemide 40 mg PO QAM inulin [Fiber Gummies] 1 dose PO QPM methotrexate sodium 8 tab PO WK pantoprazole 40 mg PO QAM polyethylene glycol 3350 [Miralax] 17 g PO HS potassium chloride [Klor-Con 10] 10 meq PO QAM ranitidine HCl 150 mg PO HS NEEDED ropinirole [Requip] 2 mg PO HS simvastatin 20 mg PO PM ASK your prescriber and surgeon adalimumab [Humira] 1 dose SUBCUT DIRECTED methotrexate sodium 8 tab PO WK STOP taking 24 hours before surgery ropinirole [Requip] 2 mg PO HS DO NOT take the morning of surgery Culturelle 1 cap PO QAM ascorbic acid (vitamin C) 500 mg PO QAM benazepril 20 mg PO QAM cholecalciferol (vitamin D3) 2,000 unit PO QAM cyanocobalamin (vitamin B-12) 1,000 mcg PO QAM furosemide 40 mg PO QAM potassium chloride [Klor-Con 10] 10 meq PO QAM Take morning of surgery With a small sip of water, OTHERWISE NOTHING TO EAT OR DRINK AFTER MIDNIGHT: amlodipine 2.5 mg PO QAM carvedilol 3.125 mg PO BID clonazepam 0.5 mg PO DAILY NEEDED (stop 4 hours before surgery) duloxetine 30 mg PO QAM pantoprazole 40 mg PO QAM Take evening before surgery Multivitamin Gummies 1 dose PO QPM aspirin 81 mg PO HS calcium carbonate [Calcium 500] 500 mg PO HS carvedilol 3.125 mg PO BID clonazepam 0.5 mg PO DAILY NEEDED ferrous sulfate [Slow Fe] 142 mg PO HS folic acid 2 mg PO QPM inulin [Fiber Gummies] 1 dose PO QPM polyethylene glycol 3350 [Miralax] 17 g PO HS ranitidine HCl 150 mg PO HS NEEDED simvastatin 20 mg PO PM Other Notes If you have any questions please call us at [phone] or [phone] or [phone] or [phone]
--- NOTE | 2018-09-11 11:06 | History & Physical Report ---
Date of Service September 11, 2018 Date of Surgery: 09/26/18 Assessment & Plan (1) Tricompartment osteoarthritis of right knee: Risks and benefits of procedure discussed in detail today, patient would like to proceed with a right total knee arthroplasty @ [facility] as scheduled. will obtain cardiac clearance prior to surgery as well as obtain PATs at [facility]. Will place on ASA 81mg po bid x 1 month post op, f/u 2 weeks post op for routine post-operative care and xray, sooner if having any problems. will make arrangements for HHPT at the time of discharge. History of Present Illness Chief Complaint: right knee pain Primary Care Provider: Zoe Logan Ms Melgar is a 78 year old female who complains of right knee pain, presents for pre-op evaluation prior to a right total knee replacement at [facility]. She presents with pain and decreased range of motion on the right side. She states that the symptoms have been chronic non-traumatic. The symptoms occur intermittently and fluctuates. Currently the patient states that the symptoms are moderate-severe. The pain is described as aching, discomforting and sharp. The symptoms occur intermittently. The patient is experiencing pain in the following locations: anterior aspect and posterior aspect on the right side. She rates her current pain as 6/10. The symptoms are aggravated by daily activities, walking, weight bearing and repetitive activities. In addition to right knee pain the patient is also experiencing limping and weakness. Patient had left TKA done by Dr. Herring 2016. she has undergone previous cortisone injections as well as visco injections with mild relief. Allergies Allergy/AdvReac Type Severity Reaction Status Date / Time No Known Allergies Allergy Unverified 09/04/18 13:57 Home Medications Home Medications Medication Instructions Recorded Confirmed Type Culturelle 1 cap PO QAM 09/04/18 09/04/18 History Multivitamin Gummies 1 dose PO QPM 09/04/18 09/04/18 History adalimumab [Humira] 1 dose SUBCUT UD 09/04/18 09/04/18 History amlodipine 2.5 mg PO QAM 09/04/18 09/04/18 History ascorbic acid (vitamin C) [Vitamin 500 mg PO QAM 09/04/18 09/04/18 History C] aspirin 81 mg PO HS 09/04/18 09/04/18 History benazepril 20 mg PO QAM 09/04/18 09/04/18 History calcium carbonate [Calcium 500] 500 mg PO HS 09/04/18 09/04/18 History carvedilol 3.125 mg PO BID 09/04/18 09/04/18 History cholecalciferol (vitamin D3) 2,000 unit PO QAM 09/04/18 09/04/18 History [Vitamin D3] clonazepam 0.5 mg PO DAILY PRN 09/04/18 09/04/18 History cyanocobalamin (vitamin B-12) 1,000 mcg PO QAM 09/04/18 09/04/18 History [Vitamin B-12] duloxetine 30 mg PO QAM 09/04/18 09/04/18 History ferrous sulfate [Slow Fe] 142 mg PO HS 09/04/18 09/04/18 History folic acid 2 mg PO QPM 09/04/18 09/04/18 History furosemide 40 mg PO QAM 09/04/18 09/04/18 History inulin [Fiber Gummies] 1 dose PO QPM 09/04/18 09/04/18 History methotrexate sodium 8 tab PO WK 09/04/18 09/04/18 History pantoprazole 40 mg PO QAM 09/04/18 09/04/18 History polyethylene glycol 3350 [Miralax] 17 g PO HS 09/04/18 09/04/18 History potassium chloride [Klor-Con 10] 10 meq PO QAM 09/04/18 09/04/18 History ranitidine HCl 150 mg PO HS PRN 09/04/18 09/04/18 History ropinirole [Requip] 2 mg PO HS 09/04/18 09/04/18 History simvastatin 20 mg PO PM 09/04/18 09/04/18 History Past Med/Surg History Medical History AAA (abdominal aortic aneurysm) PCP MONITORING Anxiety Cardiomegaly Chronic constipation GERD (gastroesophageal reflux disease) Glaucoma RT EYE Hiatal hernia History of benign breast biopsy History of migraine History of recent steroid use RECENTLY PRESCRIBED PREDNISONE FOR RA x 3 WEEKS. LAST DOSE 08/28/18 History of squamous cell carcinoma Hyperlipidemia Hypertension Mitral valve prolapse Osteoarthritis Pulmonary hypertension CAUSE? FOLLOWS W/ PCP Raynaud's disease Restless leg syndrome Rheumatoid arthritis Sleep apnea DOES NOT TOLERATE CPAP Surgical History History of cardiac cath 2016 - [facility] - NO STENTS/ANGIOPLASTY History of colonoscopy History of esophagogastroduodenoscopy (EGD) History of eye surgery RT EYE X 2 - LASER SECONDARY TO GLAUCOMA History of foot surgery RT History of squamous cell carcinoma excision History of total knee replacement LEFT Family History Mother Family history of diabetes mellitus Social History Preferred Language: Pashto Communication Ability: Effective Financial Developer Required: No Beliefs That Will Affect Care: None Current Living Situation: Family Other Information That Helps Us Care for You: No Feels Safe at Home: Yes Safety Concerns: Feels Safe At This Time Smoking Status: Never smoker Hx Alcohol Use: No Hx Substance Use: No Review of Systems All systems reviewed & are unremarkable except as noted in HPI & below Constitutional: no fever and no chills Respiratory: no cough and no dyspnea Cardiovascular: no chest pain and no dyspnea Gastrointestinal: no nausea and no vomiting Musculoskeletal: as per Subjective / HPI Physical Exam Vital Signs (Past 24 Hours): Ht: 5ft 7inches Wt: 127kg BP: 146/86 Pulse: 78 Constitutional: WD/WN, vitals as above no acute distress Respiratory: normal respiratory effort, lungs clear to auscultation no respiratory distress and does not use accessory muscles Cardiovascular: Rate/Rhythm: regular rate and regular rhythm Heart Sounds: + murmur (Grade II/ ejection murmur) Gastrointestinal (Abdomen): normal bowel sounds, soft, nontender, no hepatosplenomegaly Musculoskeletal: Right Knee Exam ambulates with a limp, there is no erythema, warmth, or atrophy or ecchymosis, mild effusion, diffuse tenderness to the knee greatest over lateral compartment compartment, negative patellar apprehension , positive crepitation with motion, Patella position neutral, veronica's negative, Maren's - lateral positive, Maren's - medial positive, Posterior drawer- negative, anterior drawer negative, valgus stress negative, varus stress negative, no extensor lag, pain with active range of motion, less pain with passive painful ROM, Range of motion 0/5/100. No pain with active/passive ROM of ankle. Lower extremity strength normal. Lower extremity neuro-vascular is normal Results & Data Diagnostic Findings right knee xrays from 08/28/18 showing advanced degenerative changes tricompartmentally, showing complete loss joint space lateral compartment and patellofemoral joint, with subchondral sclerosis and osteophyte formation. advanced DJD patellofemoral joint. no loose bodies, no acute bony pathology.
--- NOTE | 2018-09-11 12:19 | XRay Report ---
XR chest Pre-admission PA/Lat CLINICAL HISTORY: Preoperative chest COMPARISON STUDY: 01/03/2017 FINDINGS: The heart remains enlarged. There is stable elevation/eventration right hemidiaphragm. Ther e is mild chronic interstitial thickening. There is no lobar consolidation. There are no pleural effu sions.[ IMPRESSION: Stable cardiomegaly. No acute findings. Electronically signed by: Jayesh Fox M.D. 09/11/2018 12:18 PM
--- NOTE | 2018-09-11 12:21 | XRay Report ---
LATERAL CERVICAL SPINE RADIOGRAPHS WITH FLEXION AND EXTENSION CLINICAL HISTORY: PAT, RA COMPARISON STUDY: Cervical spine radiograph January 03, 2017. FINDINGS: C7 is partially obscured on this exam. There is no evidence for C1-C2 instability during fl exion or extension. There is moderate to severe multilevel disc space narrowing, osteophytosis and fa cet arthrosis. IMPRESSION: 1. No evidence for cervical spine instability during flexion and extension. 2. Moderate to severe multilevel degenerative disc disease and facet arthrosis. Electronically signed by: Jeff Kearney M.D. 09/11/2018 12:20 PM
[2018-09-11 12:59] LABS: Basophils # (auto) 0.02 K/uL (0-0.2); Basophils % (auto) 0.4 %; Eosinophils # (auto) 0.19 K/uL (0-0.5); Eosinophils % (auto) 3.9 %; Hematocrit (blood only) 39.4 % (37-47); Immature Granulocytes # (auto) 0.01 K/uL (0.00-0.02); Immature Granulocytes % (auto) 0.2 %; Lymphocytes % (auto) 24.4 %; Mean Corpuscular Volume 104.8 fL (80-100); Mean Platelet Volume 9.6 fL (7.4-10.4); Monocytes # (auto) 0.69 K/uL (0.11-0.59); Monocytes % (auto) 14.1 %; Platelet Count 270 K/uL (130-400); RDW Coefficient of Variation 13.9 % (11.5-14.5); RDW Standard Deviation 52.4 fL (36.4-46.3); Red Blood Count 3.76 M/uL (4.2-5.4); White Blood Count 4.91 K/uL (4.8-10.8)
[2018-09-11 13:03] LABS: Appearance Urine Clear (Clear); Bilirubin Urine Negative (Negative); Blood Urine Negative (Negative); Color Urine Yellow; Glucose Urine UA Negative (Negative); Ketones Urine Negative (Negative); Leukocyte Esterase Urine Negative (Negative); Nitrite Urine Negative (Negative); Protein Urine Negative (Negative); Specific Gravity Urine 1.009 (1.000-1.030); Urobilinogen Urine Negative (Negative); pH Urine 7.5 (4.5-7.5)
[2018-09-11 13:11] LABS: Partial Thromboplastin Time 26.7 Seconds (21.0-31.0); Prothrombin Time 10.1 Seconds (9.0-12.0)
[2018-09-11 13:32] LABS: Estimated Average Glucose 111 mg/dl; Hemoglobin A1C 5.5 % (4.5-5.6)
[2018-09-11 13:44] LABS: Albumin Level 3.3 gm/dl (3.4-5.0); Calcium 8.5 mg/dl (8.5-10.1); Creatinine Clr Calc Pharmacy 88.2 ml/min; Est GFR (African American) 86.9; Potassium 4.4 mmol/L (3.5-5.1)
[2018-09-26] MEDS ORDERED: LR 500ML BOLUS, THEN 15ML/HR IV SCH (06:00)
[2018-09-26] MEDS ORDERED: ROPIVACAINE 0.5% HCL/PF 150 MG, BUPIVACAINE 0.5% MPF 30 ML, EPINEPHrine 30MG/30ML (OR U... INFIL SCH (06:00)
[2018-09-26] MEDS ORDERED: CEFAZOLIN 3000MG 65 ML IV SCH (06:00)
[2018-09-26] MEDS ORDERED: TRANEXAMIC ACID 1,000 MG **IV Pre-op IV SCH (06:00)
[2018-09-26] MEDS ORDERED: FAMOTIDINE 20 MG TAB PO SCH (06:00)
[2018-09-26] MEDS ORDERED: CeleBREX 200 MG CAP PO SCH (06:00)
[2018-09-26] MEDS ORDERED: ACETAMINOPHEN 500 MG TAB PO SCH (06:00)
[2018-09-26] MEDS ORDERED: dexAMETHasone 4 MG TAB PO SCH (06:00)
[2018-09-26] MEDS ORDERED: GABAPENTIN 300 MG PO SCH (06:00)
[2018-09-26] MEDS ORDERED: TRANEXAMIC ACID 1,000 MG **IV Intra-op IV SCH (06:30)
[2018-09-26] MEDS ORDERED: ROPIVACAINE 0.5% 5 MG/ML 30 ML VIAL ONE (06:40)
[2018-09-26] MEDS ORDERED: BUPIVACAINE 0.5 % 5 MG/1 ML PF 10ML VIAL ONE (06:40)
[2018-09-26] MEDS ORDERED: BACITRACIN INJ 50,000 UNIT VIAL ONE (07:08)
[2018-09-26] MEDS ORDERED: POVIDONE-IODINE OP SOLN 30 ML BTL ONE (07:08)
[2018-09-26] MEDS ORDERED: ORTHO JOINT ANESTHETIC ONE (07:08)
--- NOTE | 2018-09-26 07:11 | History & Physical Bridge Note ---
Date of Service September 26, 2018 History & Physical Bridge Note I have examined the patient, reviewed the History & Physical and in the interval since the performance of the History & Physical I have noted the following changes of clinical significance: no changes noted
[2018-09-26] MEDS ORDERED: fentaNYL citrate 100 MCG/2 ML VIAL ONE ×2 (07:45→09:10)
[2018-09-26] MEDS ORDERED: MIDAZOLAM HCL 1 MG/ML 2ML VIAL ONE ×2 (07:45)
[2018-09-26] MEDS ORDERED: ONDANSETRON INJ 2 MG/ML 2 ML VIAL IV PRN (08:04)
[2018-09-26] MEDS ORDERED: KETOROLAC 30 MG/ML VIAL IV PRN (08:04)
[2018-09-26] MEDS ORDERED: PHENYLEPHRINE 100MCG/ML 5ML SYR IV PRN (08:04)
[2018-09-26] MEDS ORDERED: ATROPINE SULFATE 0.1 MG/ML 10ML SYR IV PRN (08:04)
[2018-09-26] MEDS ORDERED: ePHEDrine sulfate 50 MG/ML AMP IV PRN (08:04)
[2018-09-26] MEDS ORDERED: METOPROLOL TARTRATE 1 MG/ML VIAL IV ONE ×2 (09:21→09:29)
[2018-09-26] MEDS ORDERED: HYDROCORTISONE SOD SUCCINATE 100 MG/2 ML VIAL ONE (09:29)
[2018-09-26] MEDS ORDERED: PROPOFOL IV EMULSION 10 MG/ML 20 ML VIAL IV ONE (09:29)
--- NOTE | 2018-09-26 09:59 | Operative Report ---
Post Operative Report Pre & Post Diagnosis Operation Date: 09/26/18 08:35 Pre-Op Diagnosis: Right Knee Osteoarthritis Post-Op Diagnosis: Right Knee Osteoarthritis Procedure Operation Date: 09/26/18 08:35 Actual Procedures p Right Total Knee Arthroplasty, Cemented(Right) utilizing [employer] journey to non-bloc right total knee arthroplasty size 5 femur 5 tibia 10 polye thylene 35 oval patella- Pieter Herring DO Surgeon Pieter Herring DO Plastics Fitter Felipe UGARTE Estimated Blood Loss 15 Findings Consistent with Post-Op Diagnosis Resents with severe end-stage tricompartmental degenerative joint disease of the right knee with subchondral sclerosis subchondral cystic changes eburnated bone marginal osteophytes varus alignment with [id number] changes with large effusion as well as a pseudo-ligamentous laxity of medial compartment patient failed all attempts at conservative management including physical therapy injections anti-inflammatories relative rest activity modification presents for right total knee arthroplasty Specimens Bone and cartilage Drains Medium bore Hemovac Anesthesia Type General Regional Complications none Disposition Accompanied Patient To Recovery: No Disposition: Recovery Room Indications Patient presents as a 78-year-old white female for right total knee arthroplasty after failed attempts at conservative management including physical therapy should preoperative bracing preoperative cortical corticosteroid injections she is also failed attempts at Visco supplementation relative rest activity modification weight reduction she previous underwent successful left total knee arthroplasty and presents today to proceed forward with right total knee arthroplasty Description of Procedure After proper prepping and draping of the Right lower extremity anterior midline incision was made over the region of the extensor extensor mechanism after meticulous hemostasis was obtained and maintained in subcutaneous tissues a medial parapatellar incision was made The patella was subluxed lateralward the medial lateral gutter were cleaned from any hypertrophic synovitis and scar tissue of the distal femoral block was placed and the distal femoral osteotomy cut was made subsequently the chamfers anterior and posterior osteotomy cuts were made utilizing the 4-in-1 block the tibia was subsequently subluxed anteriorward medial and ateral meniscal remnants were excised in their entirety remnants of the anterior and posterior cruciate ligaments were excised in their entirety excellent exposure of the proximal tibia was obtained the tibial osteotomy guide was placed on the proximal tibial osteotomy cut was made once again the knee was irrigated with copious amounts of sterile saline solution the patella was subsequently everted lateralward thickened scar tissue around the patella was removed the patella was subsequently cut utilizing a freehand technique and was drilled prepared for final preparation and placement of patella socially flexion-extension gaps were checked and the equal and symmetric trials were placed to the appropriate femoral and tibial trials with poly-spacer being placed for equal flexion and extension gaps and full range of motion including extension to 0 and flexion to 140 the trial components after having been taken to recovery range of motion was subsequently removed meticulous hemostasis was obtained and maintained subsequently a knee block injection of joint cocktail including ropivacaine 0.5% 150 mg. Bupivacaine 0.5% epinephrine 1-200,030 mL's toradol 30 mg dexamethasone 4 mg ketamine 10 mg clonidine 100 micrograms normal saline solution 30 mg was infiltrated into the soft tissues of the posterior knee medial lateral gutters and periosteal synovium special attention was paid to protect neurovascular structures at all times subsequently trial components having been removed the knee was irrigated with sterile saline solution. debris was removed the proximal tibia was subsequently prepared and was made ready for the placement of the tibial component tibial component was also cemented and tamped into position the femoral component was subsequently placed and cemented in the position the patellar component was subsequently cemented in position because hemostasis once again obtained and maintained wound having been thoroughly irrigated with debridement and debridement lavage was performed as well as a medial parapatellar incision closed with #1 Vicryl in interrupted fashion subcutaneous was closed with #2 Vicryl skin was closed with skin clips. PA-C was necessary for prepping and drapping as well as wound closure of deep fascia Sub cutaneous tissue and skin and was necessary for the case. A sterile compressive dressing was placed patient was taken to recovery in stable condition of report dictated by Nima I attest to the content of the Intraoperative Record and any orders documented therein. Any exceptions are noted below. I attest to the content of the Intraoperative Record and any orders documented therein. Any exceptions are noted below.
[2018-09-26] MEDS: HYDROmorphone INJ 1 MG/ML SYRINGE IV PRN ×4 (11:09→11:24)
--- NOTE | 2018-09-26 11:09 | XRay Report ---
XR knee RT 2V routine CLINICAL HISTORY: Postoperative examination COMPARISON: None. DISCUSSION: There are postsurgical changes of a total right knee arthroplasty and patellar resurfacin g. Overlying skin edwin and surgical drains are evident. The femoral and tibial components appear w ell seated. Gas within soft tissues is felt to be postsurgical. IMPRESSION: Postsurgical changes of a total right knee arthroplasty. Electronically signed by: Jayesh Fox M.D. 09/26/2018 11:08 AM
[2018-09-26] MEDS ORDERED: clonazePAM 0.5 MG TAB PO PRN (11:48)
[2018-09-26] MEDS ORDERED: BISACODYL 10 MG SUPP PR PRN (11:48)
[2018-09-26] MEDS ORDERED: HYDROmorphone INJ 0.5 MG/0.5 ML SYR IV PRN (11:48)
[2018-09-26] MEDS ORDERED: SODIUM CHLORIDE 0.9% 1000ML 1,000 ML IV SCH (11:48)
[2018-09-26] MEDS ORDERED: NALOXONE HCL 0.4 MG/1 ML VIAL/CARP IV PRN (11:48)
[2018-09-26] MEDS ORDERED: MAGNESIUM HYDROXIDE SUSP 30 ML UDC PO PRN (11:48)
--- NOTE | 2018-09-26 12:49 | Anesthesiology Progress Note ---
Date of Service September 26, 2018 Anesthesia Post Procedure Vital Signs Vital Signs: Temp Pulse Pulse Resp BP Pulse Ox 09/26/18 12:25 79 18 131/71 90 09/26/18 11:35 37.2 C 82 14 158/85 H 95 09/26/18 11:25 37.2 C 81 15 159/80 H 96 09/26/18 11:15 82 14 162/89 H 95 09/26/18 11:05 81 18 168/88 H 94 09/26/18 10:55 80 18 119/84 97 09/26/18 10:45 77 15 138/74 94 09/26/18 10:39 37 C 72 16 137/75 93 09/26/18 06:24 36.7 C 78 20 143/77 H 97 Pain Intensity Left Knee: Pain Intensity: 9 Right Knee: Pain Intensity: 3 Notes Mental Status: alert / awake / arousable Patient Amnestic to Procedure: Yes Nausea / Vomiting: adequately controlled Pain: adequately controlled Airway Patency, RR, SpO2: stable & adequate BP & HR: stable & adequate Hydration State: stable & adequate Anesthetic Complications: no major complications apparent
[2018-09-26] MEDS: ACETAMINOPHEN 500 MG TAB PO SCH ×2 (13:09→21:33)
[2018-09-26] MEDS: CEFAZOLIN 2000MG 2,000 MG/15 ML SYR IV SCH (17:49)
--- NOTE | 2018-09-26 19:53 | Consultation ---
Date of Consultation September 26, 2018 Assessment & Plan (1) Tricompartment osteoarthritis of right knee: As per ortho Pre-op Hb 13.0 (2) GERD (gastroesophageal reflux disease): continue home meds (3) HTN (hypertension): continue home meds (4) Anxiety: continue home meds (5) RLS (restless legs syndrome): continue home meds (6) Leg swelling: Lasix, continue (7) TRELL (obstructive sleep apnea): Could not tolerate CPAP, is not currently tx for this (8) Rheumatoid arthritis: continue home meds (9) DVT prophylaxis: As per ortho History of Present Illness Attending Physician: Pieter Herring DO History of Present Illness 78 y/o F who was admitted on 09/26 s/p R TKA with Dr. Herring. Pt is doing well post-op. Tolerating PO without issue. Pt denies fever, SOB, chest pain, abd pain, n/v/c/d, LE swelling. Allergies Allergy/AdvReac Type Severity Reaction Status Date / Time No Known Allergies Allergy Verified 09/26/18 06:13 Home Medications Home Medications Medication Instructions Recorded Confirmed Type Culturelle 1 cap PO QAM 09/04/18 09/26/18 History adalimumab [Humira] 1 dose SUBCUT UD 09/04/18 09/26/18 History amlodipine 2.5 mg PO QAM 09/04/18 09/26/18 History ascorbic acid (vitamin C) [Vitamin 500 mg PO QAM 09/04/18 09/26/18 History C] aspirin 81 mg PO HS 09/04/18 09/26/18 History benazepril 20 mg PO QAM 09/04/18 09/26/18 History calcium carbonate [Calcium 500] 500 mg PO HS 09/04/18 09/26/18 History carvedilol 3.125 mg PO BID 09/04/18 09/26/18 History cholecalciferol (vitamin D3) 2,000 unit PO QAM 09/04/18 09/26/18 History [Vitamin D3] clonazepam 0.5 mg PO DAILY PRN 09/04/18 09/26/18 History cyanocobalamin (vitamin B-12) 1,000 mcg PO QAM 09/04/18 09/26/18 History [Vitamin B-12] duloxetine 30 mg PO QAM 09/04/18 09/26/18 History ferrous sulfate [Slow Fe] 142 mg PO Q OTHER DAY 09/04/18 09/26/18 History folic acid 2 mg PO QPM 09/04/18 09/26/18 History furosemide 40 mg PO QAM 09/04/18 09/26/18 History inulin [Fiber Gummies] 1 dose PO QPM 09/04/18 09/26/18 History methotrexate sodium 8 tab PO WK 09/04/18 09/26/18 History multivit with min-folic acid 1 dose PO QPM 09/04/18 09/26/18 History [Adult Multivitamin Gummies] pantoprazole 40 mg PO QAM 09/04/18 09/26/18 History polyethylene glycol 3350 [Miralax] 17 g PO HS 09/04/18 09/26/18 History potassium chloride [Klor-Con 10] 10 meq PO QAM 09/04/18 09/26/18 History ranitidine HCl 150 mg PO HS PRN 09/04/18 09/26/18 History ropinirole [Requip] 2 mg PO HS 09/04/18 09/26/18 History simvastatin 20 mg PO PM 09/04/18 09/26/18 History Patient History Medical History AAA (abdominal aortic aneurysm) PCP MONITORING Anxiety Chronic constipation GERD (gastroesophageal reflux disease) Glaucoma RT EYE Hiatal hernia History of benign breast biopsy History of migraine History of recent steroid use RECENTLY PRESCRIBED PREDNISONE FOR RA x 3 WEEKS. LAST DOSE 08/28/18 History of squamous cell carcinoma Hyperlipidemia Hypertension Osteoarthritis Pulmonary hypertension Moderate (Pulmonary Artery Systolic Pressure - 52-57 mmHg) Restless leg syndrome Rheumatoid arthritis Sleep apnea DOES NOT TOLERATE CPAP Cardiomegaly Mitral regurgitation Mild to Moderate Raynaud's disease Tricuspid regurgitation Moderate Surgical History History of cardiac cath 2016 - [facility] - NO STENTS/ANGIOPLASTY History of colonoscopy History of esophagogastroduodenoscopy (EGD) History of eye surgery RT EYE X 2 - LASER SECONDARY TO GLAUCOMA History of foot surgery RT History of squamous cell carcinoma excision History of total knee replacement LEFT Family History Mother Family history of diabetes mellitus Social History Preferred Language: Lao Communication Ability: Effective Glass Forming 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 Required: No Beliefs That Will Affect Care: None Current Living Situation: Family Other Information That Helps Us Care for You: No Feels Safe at Home: Yes Safety Concerns: Feels Safe At This Time Smoking Status: Never smoker Hx Alcohol Use: No Hx Substance Use: No Review of Systems Pertinent positives and negatives reviewed in HPI--all others negative Physical Exam Vital Signs (Past 24 Hours): Last Vital Signs Temp 36.4 C L 09/26/18 15:30 Pulse 79 09/26/18 15:30 Resp 18 09/26/18 15:30 BP 151/89 H 09/26/18 15:30 Pulse Ox 91 09/26/18 15:30 Constitutional: WD/WN, vitals as above Eyes: normal visual landeros by confrontation and + anicteric sclerae Neck: normal visual inspection and trachea midline Respiratory: normal respiratory effort, lungs clear to auscultation Cardiovascular: Rate/Rhythm: regular rate and regular rhythm Gastrointestinal (Abdomen): Inspection/Auscultation: abdomen not distended Percussion/Palpation: abdomen soft; abdomen nontender Musculoskeletal: Head/Neck/Chest: normocephalic and head atraumatic negative for edema, peripheral pulses intact Skin: no rashes, warm and dry Neurologic: awake; not confused Speech / Cognition: normal speech Psychiatric: A+Ox3, euthymic affect Results & Data Diagnostic Findings CXR: neg for acute
[2018-09-26] MEDS: ROPINIROLE HCL 1 MG TABLET PO SCH (20:28)
[2018-09-26] MEDS: POLYETHYLENE (MIRALAX) 17 GM PACK PO SCH (20:29)
[2018-09-26] MEDS: DOCUSATE SODIUM 100 MG CAP PO SCH (20:29)
[2018-09-26] MEDS: CARVEDILOL 3.125 MG TAB PO SCH (20:29)
[2018-09-26] MEDS: ASPIRIN 81 MG ECTAB PO SCH (20:29)
[2018-09-26] MEDS: CALCIUM CARBONATE 1250MG TAB PO SCH (20:31)
[2018-09-26] MEDS: SIMVASTATIN 20 MG TAB PO SCH (20:32)
[2018-09-27] MEDS: CEFAZOLIN 2000MG 2,000 MG/15 ML SYR IV SCH (00:07)
[2018-09-27] MEDS: ACETAMINOPHEN 500 MG TAB PO SCH ×3 (05:08→22:43)
[2018-09-27] MEDS: OXYCODONE HCL IR 5 MG TAB (IMMEDIATE RELEASE) PO PRN ×5 (06:17→23:35)
[2018-09-27 06:50] LABS: Hematocrit (blood only) 30.4 % (37-47); Hemoglobin 10.2 g/dL (12.0-16.0); Mean Corpuscular Hgb Conc 33.6 g/dL (32-36); Mean Corpuscular Volume 101.3 fL (80-100); Mean Platelet Volume 9.6 fL (7.4-10.4); Platelet Count 225 K/uL (130-400); RDW Standard Deviation 51.4 fL (36.4-46.3); White Blood Count 12.83 K/uL (4.8-10.8)
[2018-09-27 07:11] LABS: BUN Creatinine Ratio 23.4 (10-20); Calcium 8.3 mg/dl (8.5-10.1); Creatinine Clr Calc Pharmacy 76.1 ml/min; Est GFR (Non-African American) 63.8; Potassium 4.2 mmol/L (3.5-5.1)
[2018-09-27] MEDS: PANTOprazole 40 MG TAB PO SCH (07:28)
--- NOTE | 2018-09-27 08:13 | Orthopedic Progress Note ---
Date of Service September 27, 2018 Assessment & Plan (1) Right knee DJD: Postop day 1 status post right total knee arthroplasty. Begin PT and OT protocols today. Weightbearing as tolerated. DVT prophylaxis with aspirin twice daily, SCDs, JAELYN sierra. Pain management with acetaminophen hydromorphone and oxycodone DC planning-plan for home health services when patient is discharged. Subjective POD 1 s/p Right TKA Pt is awake and alert. Sitting up in bed. She is having mild pain behind the knee this AM. She has no other complaints at this time. She denies shortness of breath, chest pain, lightheadedness. She plans to have home health services upon discharge Physical Exam Vital Signs (Past 24 Hours): Last Vital Signs Temp 36.6 C 09/27/18 07:06 Pulse 82 09/27/18 07:06 Resp 20 09/27/18 07:06 BP 111/63 09/27/18 07:06 Pulse Ox 92 09/27/18 07:06 Physical Exam: Dressings are clean dry and intact. Calves are soft nontender. Neurovascular is intact. Toes are mobile. Hemovac drainage was 50 mL's from the previous shift. Results & Data Laboratory Results 09/27/18 09/27/18 Range/Units 06:09 06:09 WBC 12.83 H (4.8-10.8) K/uL RBC 3.00 L (4.2-5.4) M/uL Hgb 10.2 L (12.0-16.0) g/dL Hct 30.4 L (37-47) % MCV 101.3 H (80-100) fL MCH 34.0 (25-34) pg MCHC 33.6 (32-36) g/dL RDW Std Deviation 51.4 H (36.4-46.3) fL RDW Coeff of Prabhakar 14.0 (11.5-14.5) % Plt Count 225 (130-400) K/uL MPV 9.6 (7.4-10.4) fL Sodium 132 L (136-145) mmol/L Potassium 4.2 (3.5-5.1) mmol/L Chloride 100 (98-107) mmol/L Carbon Dioxide 25 (21-32) mmol/L Anion Gap 7.0 (3-11) BUN 21 H (7-18) mg/dl Creatinine 0.88 (0.6-1.2) mg/dl Est Cr Clr Drug Dosing 76.1 ml/min Est GFR ( Amer) 74.0 Est GFR (Non-Af Amer) 63.8 BUN/Creatinine Ratio 23.4 H (10-20) Glucose 124 H (70-99) mg/dl Calcium 8.3 L (8.5-10.1) mg/dl
--- NOTE | 2018-09-27 08:26 | Anesthesiology Progress Note ---
Date of Service September 27, 2018 Anesthesia Post Procedure Vital Signs Vital Signs: Temp Pulse Pulse Pulse Resp BP Pulse Ox 09/27/18 07:06 36.6 C 82 20 111/63 92 09/27/18 03:11 36.6 C 86 16 158/81 H 91 09/26/18 23:23 36.5 C 82 16 125/73 91 09/26/18 23:22 36.5 C 09/26/18 20:24 96 H 111/72 09/26/18 15:30 36.4 C L 79 18 151/89 H 91 09/26/18 13:51 81 17 116/71 91 09/26/18 12:50 80 18 112/66 92 09/26/18 12:25 79 18 131/71 90 09/26/18 11:48 36.6 C 83 18 164/88 H 96 09/26/18 11:35 37.2 C 82 14 158/85 H 95 09/26/18 11:25 37.2 C 81 15 159/80 H 96 09/26/18 11:15 82 14 162/89 H 95 09/26/18 11:05 81 18 168/88 H 94 09/26/18 10:55 80 18 119/84 97 09/26/18 10:45 77 15 138/74 94 09/26/18 10:39 37 C 72 16 137/75 93 Pain Intensity Left Knee: Pain Intensity: 9 Right Knee: Pain Intensity: 3 Notes Mental Status: alert / awake / arousable and participated in evaluation Patient Amnestic to Procedure: Yes Nausea / Vomiting: adequately controlled Pain: adequately controlled Airway Patency, RR, SpO2: stable & adequate BP & HR: stable & adequate Hydration State: stable & adequate Neuraxial Anesthesia: sensory block resolved Anesthetic Complications: Pt Satisfied with anesthetic care
[2018-09-27] MEDS ORDERED: CULTURELLE PO SCH (09:00)
[2018-09-27] MEDS: CARVEDILOL 3.125 MG TAB PO SCH ×2 (09:02→20:23)
[2018-09-27] MEDS: POTASSIUM CHLORIDE 10 MEQ TABCR PO SCH (09:03)
[2018-09-27] MEDS: ASPIRIN 81 MG ECTAB PO SCH ×2 (09:04→20:23)
[2018-09-27] MEDS: CHOLECALCIFEROL 1,000 UNITS TAB PO SCH (09:04)
[2018-09-27] MEDS: MULTIVITAMIN TAB PO SCH (09:04)
[2018-09-27] MEDS: DOCUSATE SODIUM 100 MG CAP PO SCH ×2 (09:05→20:23)
[2018-09-27] MEDS: ENALAPRIL MALEATE 10 MG TAB PO SCH (09:05)
[2018-09-27] MEDS: AMLODIPINE BESYLATE 5 MG TAB PO SCH (09:05)
[2018-09-27] MEDS: DULOXETINE HCL 30 MG CAP PO SCH (09:05)
[2018-09-27] MEDS: CYANOCOBALAMIN 500 MCG TABLET (VITAMIN B-12) PO SCH (09:06)
[2018-09-27] MEDS: FOLIC ACID 1 MG TAB PO SCH (09:09)
--- NOTE | 2018-09-27 15:22 | Hospitalist Progress Note ---
Date of Service September 27, 2018 Assessment & Plan (1) Tricompartment osteoarthritis of right knee: - S/p right TKA on 09/26, POD#1. - Pain control per primary team. - PT/OT ordered. - DVT ppx with Aspirin 81 mg BID. (2) Chronic diastolic heart failure: - TTE in March 2018 showed EF 55-60%, grade I diastolic dysfunction. - Monitor daily weights and intake/output. - Continue ACEI & Coreg as prescribed. - Holding Lasix 40 mg PO daily -- will resume on 09/28/2018. (3) GERD (gastroesophageal reflux disease): - PPI PO qAM. (4) HTN (hypertension): - Continue home Coreg, ACEI, Amlodipine as prescribed. - Holding Lasix, will resume on 09/28/18. (5) Anxiety: - Continue home Cymbalta as prescribed. (6) RLS (restless legs syndrome): - Continue home Requip as prescribed. (7) TRELL (obstructive sleep apnea): - Does not currently wear CPAP, has not tolerated in the past. (8) Rheumatoid arthritis: - MTX weekly. - Continue folic acid 2 mg PO daily. (9) Anemia: - Hgb trending down -- likely related to intraop blood loss. - Will monitor CBC in the AM. (10) Hyperlipidemia: - Continue home statin as prescribed. (11) Pulmonary HTN: - Moderate, pulm artery systolic pressure 52-57. (12) Mitral regurgitation: - Noted on most recent echo. (13) Tricuspid regurgitation: - Noted on most recent echo. (14) Chronic constipation: - Colace 100 mg BID, Miralax daily scheduled. (15) DVT prophylaxis: - Aspirin 81 mg BID. Dispo: Pt. is doing well, will sign off. Please call with any questions. Supervising Physician Co-Signing Physician Notes Attending Attestation - Chart reviewed in detail, care plan d/w SHANEL Murillo. I agree w/ the braga components of her consult note. POD #1 from right TKR. Vitals/labs acceptable today. Chronic medical issues are stable. Xavier Pedraza MD Subjective Pt. is doing well overall. Denies significant pain in right knee, chest pain, SOB, LE edema. Has not had a BM yet, denies urinary retention. Review of Systems All systems reviewed & are unremarkable except as noted in HPI & below Constitutional: no fever, no chills, no fatigue and no weakness Respiratory: no cough and no dyspnea Cardiovascular: no chest pain, no palpitations and no edema Gastrointestinal: + constipation; no abdominal pain, no nausea and no vomiting Genitourinary (Female): no difficulty urinating Musculoskeletal: + joint pain Integumentary: no non-healing lesions Allergy / Immunological: no rash Physical Exam Vital Signs (Past 24 Hours): Last Vital Signs Temp 36.7 C 09/27/18 11:21 Pulse 89 09/27/18 11:21 Resp 18 09/27/18 11:21 BP 155/87 H 09/27/18 11:21 Pulse Ox 93 09/27/18 11:21 Physical Exam: General: Resting comfortably in no apparent distress; A&OX3 HEENT: NC/AT; PERRLA with EOMI; [place] conjunctiva, MMM. Neck: Supple and nontender Cardiac: RRR w/o murmurs, gallops or rubs Lungs: CTA bilaterally; No rhonchi, wheezing, or rales Abdomen: Bowel normoactive X 4; Nontender to palpation Extremities: Warm. No edema present. Dressing in place with drain on right knee. Neuro: No focal weakness Skin: No rash Results & Data Laboratory Results 09/27/18 09/27/18 Range/Units 06:09 06:09 WBC 12.83 H (4.8-10.8) K/uL RBC 3.00 L (4.2-5.4) M/uL Hgb 10.2 L (12.0-16.0) g/dL Hct 30.4 L (37-47) % MCV 101.3 H (80-100) fL MCH 34.0 (25-34) pg MCHC 33.6 (32-36) g/dL RDW Std Deviation 51.4 H (36.4-46.3) fL RDW Coeff of Prabhakar 14.0 (11.5-14.5) % Plt Count 225 (130-400) K/uL MPV 9.6 (7.4-10.4) fL Sodium 132 L (136-145) mmol/L Potassium 4.2 (3.5-5.1) mmol/L Chloride 100 (98-107) mmol/L Carbon Dioxide 25 (21-32) mmol/L Anion Gap 7.0 (3-11) BUN 21 H (7-18) mg/dl Creatinine 0.88 (0.6-1.2) mg/dl Est Cr Clr Drug Dosing 76.1 ml/min Est GFR ( Amer) 74.0 Est GFR (Non-Af Amer) 63.8 BUN/Creatinine Ratio 23.4 H (10-20) Glucose 124 H (70-99) mg/dl Calcium 8.3 L (8.5-10.1) mg/dl
[2018-09-27] MEDS: CALCIUM CARBONATE 1250MG TAB PO SCH (20:23)
[2018-09-27] MEDS: SIMVASTATIN 20 MG TAB PO SCH (20:23)
[2018-09-27] MEDS: ROPINIROLE HCL 1 MG TABLET PO SCH (20:23)
[2018-09-27] MEDS: POLYETHYLENE (MIRALAX) 17 GM PACK PO SCH (20:23)
[2018-09-28] MEDS: ACETAMINOPHEN 500 MG TAB PO SCH ×3 (05:19→22:10)
[2018-09-28 06:20] LABS: Hematocrit (blood only) 27.2 % (37-47); Hemoglobin 9.3 g/dL (12.0-16.0); Mean Corpuscular Hgb Conc 34.2 g/dL (32-36); Mean Corpuscular Volume 101.1 fL (80-100); Mean Platelet Volume 9.5 fL (7.4-10.4); Platelet Count 200 K/uL (130-400); RDW Standard Deviation 51.5 fL (36.4-46.3); Red Blood Count 2.69 M/uL (4.2-5.4); White Blood Count 7.21 K/uL (4.8-10.8)
[2018-09-28 06:53] LABS: BUN Creatinine Ratio 34.2 (10-20); Calcium 7.9 mg/dl (8.5-10.1); Est GFR (African American) 94.3; Est GFR (Non-African American) 81.3; Magnesium 2.1 mg/dl (1.8-2.4); Potassium 4.2 mmol/L (3.5-5.1)
--- NOTE | 2018-09-28 07:21 | Orthopedic Progress Note ---
Date of Service September 28, 2018 Assessment & Plan (1) Right knee DJD: POD #2 s/p Right TKA pt/ot dvt proph with JAELYN/SCD/ASA plan for d/c home with HHPT, likely after PT today. Subjective POD 2 s/p Right TKA Pt is awake and alert. Sitting up in bed. She is having mild pain behind the knee this AM. She has no other complaints at this time. She denies shortness of breath, chest pain, lightheadedness. She plans to have home health services upon discharge. pain level currently 08/27 Musculoskeletal: as per Subjective / HPI Physical Exam Vital Signs (Past 24 Hours): Last Vital Signs Temp 36.7 C 09/28/18 07:09 Pulse 81 09/28/18 07:09 Resp 18 09/28/18 07:09 BP 137/73 09/28/18 07:09 Pulse Ox 92 09/28/18 07:09 Constitutional: WD/WN, vitals as above no acute distress Musculoskeletal: right knee: NVDI, calf SNT, negative graciela sign. DP palpable, able to wiggle toes/ankle movement without difficulty. Prevena clean dry and intact. expected post-operative bruising noted. Results & Data Laboratory Results Laboratory Results WBC 7.21 K/uL (4.8-10.8) 09/28/18 05:31 RBC 2.69 M/uL (4.2-5.4) L 09/28/18 05:31 Hgb 9.3 g/dL (12.0-16.0) L 09/28/18 05:31 Hct 27.2 % (37-47) L 09/28/18 05:31 MCV 101.1 fL (80-100) H 09/28/18 05:31 MCH 34.6 pg (25-34) H 09/28/18 05:31 MCHC 34.2 g/dL (32-36) 09/28/18 05:31 RDW Std Deviation 51.5 fL (36.4-46.3) H 09/28/18 05:31 RDW Coeff of Prabhakar 14.0 % (11.5-14.5) 09/28/18 05:31 Plt Count 200 K/uL (130-400) 09/28/18 05:31 MPV 9.5 fL (7.4-10.4) 09/28/18 05:31 Immature Gran % (Auto) 0.2 % 09/11/18 11:44 Neut % (Auto) 57.0 % 09/11/18 11:44 Lymph % (Auto) 24.4 % 09/11/18 11:44 [place] % (Auto) 14.1 % 09/11/18 11:44 Eos % (Auto) 3.9 % 09/11/18 11:44 Baso % (Auto) 0.4 % 09/11/18 11:44 Immature Gran # (Auto) 0.01 K/uL (0.00-0.02) 09/11/18 11:44 Neut # (Auto) 2.80 K/uL (1.4-6.5) 09/11/18 11:44 Lymph # (Auto) 1.20 K/uL (1.2-3.4) 09/11/18 11:44 [place] # (Auto) 0.69 K/uL (0.11-0.59) H 09/11/18 11:44 Eos # (Auto) 0.19 K/uL (0-0.5) 09/11/18 11:44 Baso # (Auto) 0.02 K/uL (0-0.2) 09/11/18 11:44 PT 10.1 Seconds (9.0-12.0) 09/11/18 11:44 INR 1.0 (0.9-1.1) 09/11/18 11:44 APTT 26.7 Seconds (21.0-31.0) 09/11/18 11:44 PTT Ratio 1.0 09/11/18 11:44 Sodium 129 mmol/L (136-145) L 09/28/18 05:31 Potassium 4.2 mmol/L (3.5-5.1) 09/28/18 05:31 Chloride 96 mmol/L (98-107) L 09/28/18 05:31 Carbon Dioxide 27 mmol/L (21-32) 09/28/18 05:31 Anion Gap 6.0 (3-11) 09/28/18 05:31 BUN 25 mg/dl (7-18) H 09/28/18 05:31 Creatinine 0.72 mg/dl (0.6-1.2) 09/28/18 05:31 Est Cr Clr Drug Dosing 93.0 ml/min 09/28/18 05:31 Est GFR ( Amer) 94.3 09/28/18 05:31 Est GFR (Non-Af Amer) 81.3 09/28/18 05:31 BUN/Creatinine Ratio 34.2 (10-20) H 09/28/18 05:31 Glucose 95 mg/dl (70-99) 09/28/18 05:31 Estimat Average Glucose 111 mg/dl 09/11/18 11:44 Hemoglobin A1c 5.5 % (4.5-5.6) 09/11/18 11:44 Calcium 7.9 mg/dl (8.5-10.1) L 09/28/18 05:31 Magnesium 2.1 mg/dl (1.8-2.4) 09/28/18 05:31 Albumin 3.3 gm/dl (3.4-5.0) L 09/11/18 11:44 Urine Color Yellow 09/11/18 Unknown Urine Appearance Clear (Clear) 09/11/18 Unknown Urine pH 7.5 (4.5-7.5) 09/11/18 Unknown Ur Specific [place] 1.009 (1.000-1.030) 09/11/18 Unknown Urine Protein Negative (Negative) 09/11/18 Unknown Urine Glucose (UA) Negative (Negative) 09/11/18 Unknown Urine Ketones Negative (Negative) 09/11/18 Unknown Urine Blood Negative (Negative) 09/11/18 Unknown Urine Nitrite Negative (Negative) 09/11/18 Unknown Urine Bilirubin Negative (Negative) 09/11/18 Unknown Urine Urobilinogen Negative (Negative) 09/11/18 Unknown Ur Leukocyte Esterase Negative (Negative) 09/11/18 Unknown Blood Type B Positive 09/11/18 11:44 Antibody Screen NEGATIVE 09/11/18 11:44 Diagnostic Findings XR knee RT 2V routine CLINICAL HISTORY: Postoperative examination COMPARISON: None. DISCUSSION: There are postsurgical changes of a total right knee arthroplasty and patellar resurfacing. Overlying skin [place]win and surgical drains are evident. The femoral and tibial components appear well seated. Gas within soft tissues is felt to be postsurgical. IMPRESSION: Postsurgical changes of a total right knee arthroplasty.
[2018-09-28] MEDS: POTASSIUM CHLORIDE 10 MEQ TABCR PO SCH (08:33)
[2018-09-28] MEDS: FOLIC ACID 1 MG TAB PO SCH (08:33)
[2018-09-28] MEDS: FUROSEMIDE 40 MG TAB PO SCH (08:33)
[2018-09-28] MEDS: DOCUSATE SODIUM 100 MG CAP PO SCH ×2 (08:34→20:09)
[2018-09-28] MEDS: MULTIVITAMIN TAB PO SCH (08:34)
[2018-09-28] MEDS: PANTOprazole 40 MG TAB PO SCH (08:34)
[2018-09-28] MEDS: ENALAPRIL MALEATE 10 MG TAB PO SCH (08:34)
[2018-09-28] MEDS: CHOLECALCIFEROL 1,000 UNITS TAB PO SCH (08:34)
[2018-09-28] MEDS: DULOXETINE HCL 30 MG CAP PO SCH (08:34)
[2018-09-28] MEDS: AMLODIPINE BESYLATE 5 MG TAB PO SCH (08:35)
[2018-09-28] MEDS: CYANOCOBALAMIN 500 MCG TABLET (VITAMIN B-12) PO SCH (08:35)
[2018-09-28] MEDS: ASPIRIN 81 MG ECTAB PO SCH ×2 (08:35→20:08)
[2018-09-28] MEDS: CARVEDILOL 3.125 MG TAB PO SCH ×2 (08:35→20:08)
[2018-09-28] MEDS: OXYCODONE HCL IR 5 MG TAB (IMMEDIATE RELEASE) PO PRN ×2 (08:39→15:25)
[2018-09-28 13:23] LABS: BUN Creatinine Ratio 33.3 (10-20); Calcium 8.4 mg/dl (8.5-10.1); Creatinine Clr Calc Pharmacy 104.6 ml/min; Est GFR (African American) 100.5; Est GFR (Non-African American) 86.7; Potassium 4.4 mmol/L (3.5-5.1)
--- NOTE | 2018-09-28 15:27 | Hospitalist Progress Note ---
Date of Service September 28, 2018 Assessment & Plan (1) Tricompartment osteoarthritis of right knee: - S/p right TKA on 09/26, POD#2. - Pain control per primary team. - PT/OT - discharge with home health when medically stable. - DVT ppx with Aspirin 81 mg BID. (2) Hyponatremia: - Na level trending down in post op period -- 129 to 127 today. - May be related to hypervolemic hyponatremia as the patient does not appear to be dry & was drinking large amounts of water yesterday. - Urine sodium and osmo, serum osmo and uric acid level are pending. - Continue home Lasix 40 mg PO daily (was held 2 days prior to admission and restarted POD#1). - Fluid restriction of 1800 cc. - Repeat Na level at 18:00 and in the AM. (3) Chronic diastolic heart failure: - TTE in March 2018 showed EF 55-60%, grade I diastolic dysfunction. - Monitor daily weights and intake/output. - Continue ACEI & Coreg as prescribed. - Resumed home Lasix 40 mg PO daily. (4) GERD (gastroesophageal reflux disease): - PPI PO qAM. (5) HTN (hypertension): - Continue home Coreg, ACEI, Amlodipine as prescribed. - Resumed home Lasix. (6) Anxiety: - Continue home Cymbalta as prescribed. (7) RLS (restless legs syndrome): - Continue home Requip as prescribed. (8) TRELL (obstructive sleep apnea): - Does not currently wear CPAP, has not tolerated in the past. (9) Rheumatoid arthritis: - MTX weekly. - Continue folic acid 2 mg PO daily. (10) Anemia: - Hgb trending down -- likely related to intra-op blood loss. - Will monitor CBC qAM. (11) Hyperlipidemia: - Continue home statin as prescribed. (12) Pulmonary HTN: - Moderate, pulm artery systolic pressure 52-57. (13) Mitral regurgitation: - Noted on most recent echo. (14) Tricuspid regurgitation: - Noted on most recent echo. (15) Chronic constipation: - Colace 100 mg BID, Miralax daily scheduled. (16) DVT prophylaxis: - Aspirin 81 mg BID. Dispo: Will monitor over next 24 hours in setting of hyponatremia. Discharge to home on 09/29 pending improvement in labwork. Supervising Physician Co-Signing Physician Notes Attending Attestation - Chart reviewed in detail, care plan d/w SHANEL Murillo. I agree w/ the braga components of her consult note. POD #2 from right TKR. Unfortunately has developed worsening hyponatremia. Agree w/ urine osm, urine Na, etc. These results will dictate Rx of low sodium. Xavier Pedraza MD Subjective Pt. is doing well overall today. Pain improved. Na level is trending down on labs -- was 129 --> 127 from morning to afternoon. She was drinking large amounts of water yesterday. Does not appear to be volume depleted -- may be component of hypervolemic hyponatremia. Urine and serum studies are pending. Will keep inpatient over next 24 hours. Review of Systems All systems reviewed & are unremarkable except as noted in HPI & below Constitutional: no fever, no chills, no fatigue and no weakness Respiratory: no cough and no dyspnea Cardiovascular: no chest pain, no palpitations and no edema Gastrointestinal: no abdominal pain, no nausea and no vomiting Genitourinary (Female): no dysuria and no difficulty urinating Musculoskeletal: no joint pain Integumentary: no non-healing lesions Allergy / Immunological: no rash Physical Exam Vital Signs (Past 24 Hours): Last Vital Signs Temp 36.7 C 09/28/18 07:09 Pulse 81 09/28/18 07:09 Resp 18 09/28/18 07:09 BP 137/73 09/28/18 07:09 Pulse Ox 92 09/28/18 07:09 Physical Exam: General: Resting comfortably in no apparent distress HEENT: NC/AT; PERRLA with EOMI; [place] conjunctiva, MMM. Neck: Supple and nontender Cardiac: RRR Lungs: CTA bilaterally Abdomen: Bowel normoactive X 4; Nontender to palpation Extremities: Warm. No edema in bilat LE. Dressing in place with drain on right knee. Neuro: No focal weakness Skin: No rash Results & Data Laboratory Results 09/28/18 09/28/18 09/28/18 Range/Units 14:40 14:40 12:53 WBC (4.8-10.8) K/uL RBC (4.2-5.4) M/uL Hgb (12.0-16.0) g/dL Hct (37-47) % MCV (80-100) fL MCH (25-34) pg MCHC (32-36) g/dL RDW Std Deviation (36.4-46.3) fL RDW Coeff of Prabhakar (11.5-14.5) % Plt Count (130-400) K/uL MPV (7.4-10.4) fL Sodium (136-145) mmol/L Potassium (3.5-5.1) mmol/L Chloride (98-107) mmol/L Carbon Dioxide (21-32) mmol/L Anion Gap (3-11) BUN (7-18) mg/dl Creatinine (0.6-1.2) mg/dl Est Cr Clr Drug Dosing ml/min Est GFR ( Amer) Est GFR (Non-Af Amer) BUN/Creatinine Ratio (10-20) Glucose (70-99) mg/dl Osmolality (280-300) mOsm/kg Uric Acid 5.2 (2.6-7.2) mg/dl Calcium (8.5-10.1) mg/dl Magnesium (1.8-2.4) mg/dl Urine Osmolality 398 L (500-800) mOsm/kg Ur Random Sodium 60 mmol/L 09/28/18 09/28/18 09/28/18 Range/Units 12:53 12:53 05:31 WBC (4.8-10.8) K/uL RBC (4.2-5.4) M/uL Hgb (12.0-16.0) g/dL Hct (37-47) % MCV (80-100) fL MCH (25-34) pg MCHC (32-36) g/dL RDW Std Deviation (36.4-46.3) fL RDW Coeff of Prabhakar (11.5-14.5) % Plt Count (130-400) K/uL MPV (7.4-10.4) fL Sodium 127 L 129 L (136-145) mmol/L Potassium 4.4 4.2 (3.5-5.1) mmol/L Chloride 94 L 96 L (98-107) mmol/L Carbon Dioxide 26 27 (21-32) mmol/L Anion Gap 7.0 6.0 (3-11) BUN 21 H 25 H (7-18) mg/dl Creatinine 0.64 0.72 (0.6-1.2) mg/dl Est Cr Clr Drug Dosing 104.6 93.0 ml/min Est GFR ( Amer) 100.5 94.3 Est GFR (Non-Af Amer) 86.7 81.3 BUN/Creatinine Ratio 33.3 H 34.2 H (10-20) Glucose 93 95 (70-99) mg/dl Osmolality 267 L (280-300) mOsm/kg Uric Acid (2.6-7.2) mg/dl Calcium 8.4 L 7.9 L (8.5-10.1) mg/dl Magnesium 2.1 (1.8-2.4) mg/dl Urine Osmolality (500-800) mOsm/kg Ur Random Sodium mmol/L 09/28/18 Range/Units 05:31 WBC 7.21 (4.8-10.8) K/uL RBC 2.69 L (4.2-5.4) M/uL Hgb 9.3 L (12.0-16.0) g/dL Hct 27.2 L (37-47) % MCV 101.1 H (80-100) fL MCH 34.6 H (25-34) pg MCHC 34.2 (32-36) g/dL RDW Std Deviation 51.5 H (36.4-46.3) fL RDW Coeff of Prabhakar 14.0 (11.5-14.5) % Plt Count 200 (130-400) K/uL MPV 9.5 (7.4-10.4) fL Sodium (136-145) mmol/L Potassium (3.5-5.1) mmol/L Chloride (98-107) mmol/L Carbon Dioxide (21-32) mmol/L Anion Gap (3-11) BUN (7-18) mg/dl Creatinine (0.6-1.2) mg/dl Est Cr Clr Drug Dosing ml/min Est GFR ( Amer) Est GFR (Non-Af Amer) BUN/Creatinine Ratio (10-20) Glucose (70-99) mg/dl Osmolality (280-300) mOsm/kg Uric Acid (2.6-7.2) mg/dl Calcium (8.5-10.1) mg/dl Magnesium (1.8-2.4) mg/dl Urine Osmolality (500-800) mOsm/kg Ur Random Sodium mmol/L
[2018-09-28] MEDS: POLYETHYLENE (MIRALAX) 17 GM PACK PO SCH (20:08)
[2018-09-28] MEDS: CALCIUM CARBONATE 1250MG TAB PO SCH (20:09)
[2018-09-28] MEDS: SIMVASTATIN 20 MG TAB PO SCH (20:10)
[2018-09-28] MEDS: ROPINIROLE HCL 1 MG TABLET PO SCH (20:10)
[2018-09-28] MEDS: clonazePAM 0.5 MG TAB PO PRN (22:10)
[2018-09-29] MEDS: ACETAMINOPHEN 500 MG TAB PO SCH ×3 (05:46→21:45)
[2018-09-29 06:04] LABS: Basophils # (auto) 0.01 K/uL (0-0.2); Basophils % (auto) 0.1 %; Eosinophils # (auto) 0.06 K/uL (0-0.5); Eosinophils % (auto) 0.7 %; Hematocrit (blood only) 27.5 % (37-47); Hemoglobin 9.4 g/dL (12.0-16.0); Immature Granulocytes # (auto) 0.03 K/uL (0.00-0.02); Immature Granulocytes % (auto) 0.3 %; Lymphocytes # (auto) 0.92 K/uL (1.2-3.4); Lymphocytes % (auto) 10.6 %; Mean Corpuscular Hgb Conc 34.2 g/dL (32-36); Mean Corpuscular Volume 100.4 fL (80-100); Mean Platelet Volume 9.3 fL (7.4-10.4); Monocytes # (auto) 1.35 K/uL (0.11-0.59); Monocytes % (auto) 15.6 %; Neutrophils # (auto) 6.28 K/uL (1.4-6.5); Neutrophils % (auto) 72.7 %; Platelet Count 199 K/uL (130-400); RDW Coefficient of Variation 13.7 % (11.5-14.5); RDW Standard Deviation 49.4 fL (36.4-46.3); Red Blood Count 2.74 M/uL (4.2-5.4); White Blood Count 8.65 K/uL (4.8-10.8)
[2018-09-29 06:39] LABS: BUN Creatinine Ratio 27.7 (10-20); Calcium 8.3 mg/dl (8.5-10.1); Creatinine Clr Calc Pharmacy 110.9 ml/min; Est GFR (African American) 102.1; Est GFR (Non-African American) 88.1; Magnesium 1.9 mg/dl (1.8-2.4); Potassium 4.4 mmol/L (3.5-5.1)
[2018-09-29] MEDS: ONDANSETRON INJ 2 MG/ML 2 ML VIAL IV PRN (07:34)
[2018-09-29] MEDS: clonazePAM 0.5 MG TAB PO PRN ×2 (07:57→21:46)
[2018-09-29] MEDS: PANTOprazole 40 MG TAB PO SCH (07:57)
--- NOTE | 2018-09-29 08:18 | Orthopedic Progress Note ---
Date of Service September 29, 2018 Assessment & Plan (1) Right knee DJD: POD #3 s/p Right TKA pt/ot dvt proph with JAELYN/SCD/ASA Hyponatremia-as per [facility] physician group hospitalist service. plan for d/c home with HHPT when stable per medicine service.. Subjective Patient is postop day 3 status post right total knee arthroplasty. She is currently sitting up in her chair at the bedside. She states that she is having a little bit of nausea this morning. She states that her knee is doing pretty well and has some mild pain in the back of the knee. She denies shortness of breath, chest pain, lightheadedness. She has not had any emesis. She denies calf pain. She was notably hyponatremic and medicine service has been following her for this. This morning's sodium level was 125 compared to 127 yesterday. Physical Exam Vital Signs (Past 24 Hours): Last Vital Signs Temp 36.7 C 09/29/18 07:03 Pulse 80 09/29/18 07:03 Resp 18 09/29/18 07:03 BP 167/85 H 09/29/18 07:03 Pulse Ox 96 09/29/18 07:03 Physical Exam: Prevena dressing is clean dry and intact. Functioning well. No overt drainage in the collection tube. Calves are soft nontender. Neurovascular intact. Toes are mobile. Results & Data Laboratory Results 09/29/18 09/29/18 09/28/18 Range/Units 05:34 05:34 18:54 WBC 8.65 (4.8-10.8) K/uL RBC 2.74 L (4.2-5.4) M/uL Hgb 9.4 L (12.0-16.0) g/dL Hct 27.5 L (37-47) % MCV 100.4 H (80-100) fL MCH 34.3 H (25-34) pg MCHC 34.2 (32-36) g/dL RDW Std Deviation 49.4 H (36.4-46.3) fL RDW Coeff of Prabhakar 13.7 (11.5-14.5) % Plt Count 199 (130-400) K/uL MPV 9.3 (7.4-10.4) fL Immature Gran % (Auto) 0.3 % Neut % (Auto) 72.7 % Lymph % (Auto) 10.6 % [place] % (Auto) 15.6 % Eos % (Auto) 0.7 % Baso % (Auto) 0.1 % Immature Gran # (Auto) 0.03 H (0.00-0.02) K/uL Neut # (Auto) 6.28 (1.4-6.5) K/uL Lymph # (Auto) 0.92 L (1.2-3.4) K/uL [place] # (Auto) 1.35 H (0.11-0.59) K/uL Eos # (Auto) 0.06 (0-0.5) K/uL Baso # (Auto) 0.01 (0-0.2) K/uL Sodium 125 L 127 L (136-145) mmol/L Potassium 4.4 (3.5-5.1) mmol/L Chloride 91 L (98-107) mmol/L Carbon Dioxide 28 (21-32) mmol/L Anion Gap 6.0 (3-11) BUN 17 (7-18) mg/dl Creatinine 0.61 (0.6-1.2) mg/dl Est Cr Clr Drug Dosing 110.9 ml/min Est GFR ( Amer) 102.1 Est GFR (Non-Af Amer) 88.1 BUN/Creatinine Ratio 27.7 H (10-20) Glucose 103 H (70-99) mg/dl Osmolality (280-300) mOsm/kg Uric Acid (2.6-7.2) mg/dl Calcium 8.3 L (8.5-10.1) mg/dl Magnesium 1.9 (1.8-2.4) mg/dl Urine Osmolality (500-800) mOsm/kg Ur Random Sodium mmol/L 09/28/18 09/28/18 09/28/18 Range/Units 14:40 14:40 12:53 WBC (4.8-10.8) K/uL RBC (4.2-5.4) M/uL Hgb (12.0-16.0) g/dL Hct (37-47) % MCV (80-100) fL MCH (25-34) pg MCHC (32-36) g/dL RDW Std Deviation (36.4-46.3) fL RDW Coeff of Prabhakar (11.5-14.5) % Plt Count (130-400) K/uL MPV (7.4-10.4) fL Immature Gran % (Auto) % Neut % (Auto) % Lymph % (Auto) % [place] % (Auto) % Eos % (Auto) % Baso % (Auto) % Immature Gran # (Auto) (0.00-0.02) K/uL Neut # (Auto) (1.4-6.5) K/uL Lymph # (Auto) (1.2-3.4) K/uL [place] # (Auto) (0.11-0.59) K/uL Eos # (Auto) (0-0.5) K/uL Baso # (Auto) (0-0.2) K/uL Sodium (136-145) mmol/L Potassium (3.5-5.1) mmol/L Chloride (98-107) mmol/L Carbon Dioxide (21-32) mmol/L Anion Gap (3-11) BUN (7-18) mg/dl Creatinine (0.6-1.2) mg/dl Est Cr Clr Drug Dosing ml/min Est GFR ( Amer) Est GFR (Non-Af Amer) BUN/Creatinine Ratio (10-20) Glucose (70-99) mg/dl Osmolality (280-300) mOsm/kg Uric Acid 5.2 (2.6-7.2) mg/dl Calcium (8.5-10.1) mg/dl Magnesium (1.8-2.4) mg/dl Urine Osmolality 398 L (500-800) mOsm/kg Ur Random Sodium 60 mmol/L 09/28/18 09/28/18 Range/Units 12:53 12:53 WBC (4.8-10.8) K/uL RBC (4.2-5.4) M/uL Hgb (12.0-16.0) g/dL Hct (37-47) % MCV (80-100) fL MCH (25-34) pg MCHC (32-36) g/dL RDW Std Deviation (36.4-46.3) fL RDW Coeff of Prabhakar (11.5-14.5) % Plt Count (130-400) K/uL MPV (7.4-10.4) fL Immature Gran % (Auto) % Neut % (Auto) % Lymph % (Auto) % [place] % (Auto) % Eos % (Auto) % Baso % (Auto) % Immature Gran # (Auto) (0.00-0.02) K/uL Neut # (Auto) (1.4-6.5) K/uL Lymph # (Auto) (1.2-3.4) K/uL [place] # (Auto) (0.11-0.59) K/uL Eos # (Auto) (0-0.5) K/uL Baso # (Auto) (0-0.2) K/uL Sodium 127 L (136-145) mmol/L Potassium 4.4 (3.5-5.1) mmol/L Chloride 94 L (98-107) mmol/L Carbon Dioxide 26 (21-32) mmol/L Anion Gap 7.0 (3-11) BUN 21 H (7-18) mg/dl Creatinine 0.64 (0.6-1.2) mg/dl Est Cr Clr Drug Dosing 104.6 ml/min Est GFR ( Amer) 100.5 Est GFR (Non-Af Amer) 86.7 BUN/Creatinine Ratio 33.3 H (10-20) Glucose 93 (70-99) mg/dl Osmolality 267 L (280-300) mOsm/kg Uric Acid (2.6-7.2) mg/dl Calcium 8.4 L (8.5-10.1) mg/dl Magnesium (1.8-2.4) mg/dl Urine Osmolality (500-800) mOsm/kg Ur Random Sodium mmol/L
[2018-09-29] MEDS: MULTIVITAMIN TAB PO SCH (09:03)
[2018-09-29] MEDS: CHOLECALCIFEROL 1,000 UNITS TAB PO SCH (09:04)
[2018-09-29] MEDS: FOLIC ACID 1 MG TAB PO SCH (09:04)
[2018-09-29] MEDS: ENALAPRIL MALEATE 10 MG TAB PO SCH (09:05)
[2018-09-29] MEDS: CYANOCOBALAMIN 500 MCG TABLET (VITAMIN B-12) PO SCH (09:05)
[2018-09-29] MEDS: FUROSEMIDE 40 MG TAB PO SCH (09:06)
[2018-09-29] MEDS: DULOXETINE HCL 30 MG CAP PO SCH (09:06)
[2018-09-29] MEDS: POTASSIUM CHLORIDE 10 MEQ TABCR PO SCH (09:06)
[2018-09-29] MEDS: ASPIRIN 81 MG ECTAB PO SCH ×2 (09:06→20:25)
[2018-09-29] MEDS: CARVEDILOL 3.125 MG TAB PO SCH ×2 (09:06→20:24)
[2018-09-29] MEDS: AMLODIPINE BESYLATE 5 MG TAB PO SCH (09:07)
[2018-09-29] MEDS: DOCUSATE SODIUM 100 MG CAP PO SCH ×2 (09:11→20:24)
[2018-09-29] MEDS: OXYCODONE HCL IR 5 MG TAB (IMMEDIATE RELEASE) PO PRN ×2 (09:11→14:17)
--- NOTE | 2018-09-29 12:41 | Hospitalist Progress Note ---
Date of Service September 29, 2018 Assessment & Plan (1) Tricompartment osteoarthritis of right knee: - S/p right TKA on 09/26, POD#3. - Pain control per primary team. - PT/OT - discharge with home health when medically stable. - DVT ppx with Aspirin 81 mg BID. (2) Hyponatremia: - Na level continues to trend down, was 125 this morning. - She appears euvolemic on exam; is not likely related to hypervolemic hyponatremia. - Urine studies are unclear -- may be related to SIADH due to urine osmo >serum osmo level and urine sodium level of 60. - Continue home Lasix 40 mg PO daily (was held for 4 days during operative period) - Change fluid restriction to 1500 cc; start NaCl tablets 1 gm TID. - Repeat Na level at 15:00 and qAM. (3) Chronic diastolic heart failure: - TTE in March 2018 showed EF 55-60%, grade I diastolic dysfunction. - Monitor daily weights and intake/output -- pt. reports baseline weight is 280 lb, is now increased to 297 lb. Documented pre-op weight was 291 lb. - Continue ACEI, Coreg and Lasix as prescribed. (4) GERD (gastroesophageal reflux disease): - PPI PO qAM. (5) HTN (hypertension): - Continue home Coreg, ACEI, Amlodipine, Lasix as prescribed. (6) Anxiety: - Continue home Cymbalta as prescribed. (7) RLS (restless legs syndrome): - Continue home Requip as prescribed. (8) TRELL (obstructive sleep apnea): - Does not currently wear CPAP, has not tolerated in the past. (9) Rheumatoid arthritis: - MTX weekly. - Continue folic acid 2 mg PO daily. (10) Anemia: - Hgb below baseline -- likely related to intra-op blood loss. - Will monitor CBC qAM. (11) Hyperlipidemia: - Continue home statin as prescribed. (12) Pulmonary HTN: - Moderate, pulm artery systolic pressure 52-57. (13) Mitral regurgitation: - Noted on most recent echo. (14) Tricuspid regurgitation: - Noted on most recent echo. (15) Chronic constipation: - Colace 100 mg BID, Miralax daily scheduled. - Had large BM yesterday. (16) DVT prophylaxis: - Aspirin 81 mg BID. Dispo: Discharge pending improvement in hyponatremia. Supervising Physician Co-Signing Physician Notes Attending Attestation - Chart reviewed in detail, care plan d/w SHANEL Murillo. I agree w/ the braga components of her consult note. POD #3 from right TKR. Hyponatremia is worse today. urine studies in context of current volume status most c/w SIADH or reset osmostat. Fluid restrict. Cont lasix. Salt tabs. Na tonight and again in am. Xavier Pedraza MD Subjective Pt. is doing well overall. Did have nausea this morning -- received Zofran with improvement. Has been tolerating PO intake. Had BM yesterday, denies urinary retention. No improvement in Na levels. Review of Systems All systems reviewed & are unremarkable except as noted in HPI & below Constitutional: no fever, no chills, no fatigue, no weakness and no anorexia Respiratory: no cough and no dyspnea Cardiovascular: no chest pain, no palpitations, no lightheadedness and no edema Gastrointestinal: + nausea; no abdominal pain, no vomiting, no constipation and no diarrhea/loose stools Genitourinary (Female): no difficulty urinating Musculoskeletal: + joint pain; no back pain Integumentary: no non-healing lesions Allergy / Immunological: no rash Physical Exam Vital Signs (Past 24 Hours): Last Vital Signs Temp 36.7 C 09/29/18 07:03 Pulse 80 09/29/18 07:03 Resp 18 09/29/18 07:03 BP 167/85 H 09/29/18 07:03 Pulse Ox 96 09/29/18 07:03 Physical Exam: General: Resting comfortably in no apparent distress HEENT: NC/AT; PERRLA with EOMI; [place] conjunctiva, MMM. Neck: Supple and nontender Cardiac: RRR Lungs: CTA bilaterally Abdomen: Bowel normoactive X 4; Nontender to palpation Extremities: Warm. No edema in bilat LE. No erythema noted around incision site of right knee. Neuro: No focal weakness Skin: No rash Results & Data Laboratory Results 09/29/18 09/29/18 09/29/18 Range/Units 10:28 09:32 09:32 WBC (4.8-10.8) K/uL RBC (4.2-5.4) M/uL Hgb (12.0-16.0) g/dL Hct (37-47) % MCV (80-100) fL MCH (25-34) pg MCHC (32-36) g/dL RDW Std Deviation (36.4-46.3) fL RDW Coeff of Prabhakar (11.5-14.5) % Plt Count (130-400) K/uL MPV (7.4-10.4) fL Immature Gran % (Auto) % Neut % (Auto) % Lymph % (Auto) % [place] % (Auto) % Eos % (Auto) % Baso % (Auto) % Immature Gran # (Auto) (0.00-0.02) K/uL Neut # (Auto) (1.4-6.5) K/uL Lymph # (Auto) (1.2-3.4) K/uL [place] # (Auto) (0.11-0.59) K/uL Eos # (Auto) (0-0.5) K/uL Baso # (Auto) (0-0.2) K/uL Sodium (136-145) mmol/L Potassium (3.5-5.1) mmol/L Chloride (98-107) mmol/L Carbon Dioxide (21-32) mmol/L Anion Gap (3-11) BUN (7-18) mg/dl Creatinine (0.6-1.2) mg/dl Est Cr Clr Drug Dosing ml/min Est GFR ( Amer) Est GFR (Non-Af Amer) BUN/Creatinine Ratio (10-20) Glucose (70-99) mg/dl Osmolality (280-300) mOsm/kg Uric Acid (2.6-7.2) mg/dl Calcium (8.5-10.1) mg/dl Magnesium (1.8-2.4) mg/dl TSH 0.908 (0.300-4.500) uIu/ml Random Cortisol 30.11 mcg/dl Urine Osmolality 433 L (500-800) mOsm/kg Ur Random Sodium mmol/L 09/29/18 09/29/18 09/28/18 Range/Units 05:34 05:34 18:54 WBC 8.65 (4.8-10.8) K/uL RBC 2.74 L (4.2-5.4) M/uL Hgb 9.4 L (12.0-16.0) g/dL Hct 27.5 L (37-47) % MCV 100.4 H (80-100) fL MCH 34.3 H (25-34) pg MCHC 34.2 (32-36) g/dL RDW Std Deviation 49.4 H (36.4-46.3) fL RDW Coeff of Prabhakar 13.7 (11.5-14.5) % Plt Count 199 (130-400) K/uL MPV 9.3 (7.4-10.4) fL Immature Gran % (Auto) 0.3 % Neut % (Auto) 72.7 % Lymph % (Auto) 10.6 % [place] % (Auto) 15.6 % Eos % (Auto) 0.7 % Baso % (Auto) 0.1 % Immature Gran # (Auto) 0.03 H (0.00-0.02) K/uL Neut # (Auto) 6.28 (1.4-6.5) K/uL Lymph # (Auto) 0.92 L (1.2-3.4) K/uL [place] # (Auto) 1.35 H (0.11-0.59) K/uL Eos # (Auto) 0.06 (0-0.5) K/uL Baso # (Auto) 0.01 (0-0.2) K/uL Sodium 125 L 127 L (136-145) mmol/L Potassium 4.4 (3.5-5.1) mmol/L Chloride 91 L (98-107) mmol/L Carbon Dioxide 28 (21-32) mmol/L Anion Gap 6.0 (3-11) BUN 17 (7-18) mg/dl Creatinine 0.61 (0.6-1.2) mg/dl Est Cr Clr Drug Dosing 110.9 ml/min Est GFR ( Amer) 102.1 Est GFR (Non-Af Amer) 88.1 BUN/Creatinine Ratio 27.7 H (10-20) Glucose 103 H (70-99) mg/dl Osmolality (280-300) mOsm/kg Uric Acid (2.6-7.2) mg/dl Calcium 8.3 L (8.5-10.1) mg/dl Magnesium 1.9 (1.8-2.4) mg/dl TSH (0.300-4.500) uIu/ml Random Cortisol mcg/dl Urine Osmolality (500-800) mOsm/kg Ur Random Sodium mmol/L 09/28/18 09/28/18 09/28/18 Range/Units 14:40 14:40 12:53 WBC (4.8-10.8) K/uL RBC (4.2-5.4) M/uL Hgb (12.0-16.0) g/dL Hct (37-47) % MCV (80-100) fL MCH (25-34) pg MCHC (32-36) g/dL RDW Std Deviation (36.4-46.3) fL RDW Coeff of Prabhakar (11.5-14.5) % Plt Count (130-400) K/uL MPV (7.4-10.4) fL Immature Gran % (Auto) % Neut % (Auto) % Lymph % (Auto) % [place] % (Auto) % Eos % (Auto) % Baso % (Auto) % Immature Gran # (Auto) (0.00-0.02) K/uL Neut # (Auto) (1.4-6.5) K/uL Lymph # (Auto) (1.2-3.4) K/uL [place] # (Auto) (0.11-0.59) K/uL Eos # (Auto) (0-0.5) K/uL Baso # (Auto) (0-0.2) K/uL Sodium (136-145) mmol/L Potassium (3.5-5.1) mmol/L Chloride (98-107) mmol/L Carbon Dioxide (21-32) mmol/L Anion Gap (3-11) BUN (7-18) mg/dl Creatinine (0.6-1.2) mg/dl Est Cr Clr Drug Dosing ml/min Est GFR ( Amer) Est GFR (Non-Af Amer) BUN/Creatinine Ratio (10-20) Glucose (70-99) mg/dl Osmolality (280-300) mOsm/kg Uric Acid 5.2 (2.6-7.2) mg/dl Calcium (8.5-10.1) mg/dl Magnesium (1.8-2.4) mg/dl TSH (0.300-4.500) uIu/ml Random Cortisol mcg/dl Urine Osmolality 398 L (500-800) mOsm/kg Ur Random Sodium 60 mmol/L 09/28/18 09/28/18 Range/Units 12:53 12:53 WBC (4.8-10.8) K/uL RBC (4.2-5.4) M/uL Hgb (12.0-16.0) g/dL Hct (37-47) % MCV (80-100) fL MCH (25-34) pg MCHC (32-36) g/dL RDW Std Deviation (36.4-46.3) fL RDW Coeff of Prabhakar (11.5-14.5) % Plt Count (130-400) K/uL MPV (7.4-10.4) fL Immature Gran % (Auto) % Neut % (Auto) % Lymph % (Auto) % [place] % (Auto) % Eos % (Auto) % Baso % (Auto) % Immature Gran # (Auto) (0.00-0.02) K/uL Neut # (Auto) (1.4-6.5) K/uL Lymph # (Auto) (1.2-3.4) K/uL [place] # (Auto) (0.11-0.59) K/uL Eos # (Auto) (0-0.5) K/uL Baso # (Auto) (0-0.2) K/uL Sodium 127 L (136-145) mmol/L Potassium 4.4 (3.5-5.1) mmol/L Chloride 94 L (98-107) mmol/L Carbon Dioxide 26 (21-32) mmol/L Anion Gap 7.0 (3-11) BUN 21 H (7-18) mg/dl Creatinine 0.64 (0.6-1.2) mg/dl Est Cr Clr Drug Dosing 104.6 ml/min Est GFR ( Amer) 100.5 Est GFR (Non-Af Amer) 86.7 BUN/Creatinine Ratio 33.3 H (10-20) Glucose 93 (70-99) mg/dl Osmolality 267 L (280-300) mOsm/kg Uric Acid (2.6-7.2) mg/dl Calcium 8.4 L (8.5-10.1) mg/dl Magnesium (1.8-2.4) mg/dl TSH (0.300-4.500) uIu/ml Random Cortisol mcg/dl Urine Osmolality (500-800) mOsm/kg Ur Random Sodium mmol/L
[2018-09-29] MEDS: SODIUM CHLORIDE 1 GM TABLET PO SCH ×2 (14:38→20:27)
[2018-09-29 16:01] LABS: Calcium 8.5 mg/dl (8.5-10.1); Creatinine Clr Calc Pharmacy 109.1 ml/min; Est GFR (African American) 101.5; Est GFR (Non-African American) 87.6; Potassium 4.2 mmol/L (3.5-5.1)
[2018-09-29] MEDS: CALCIUM CARBONATE 1250MG TAB PO SCH (20:26)
[2018-09-29] MEDS: ROPINIROLE HCL 1 MG TABLET PO SCH (20:27)
[2018-09-29] MEDS: SIMVASTATIN 20 MG TAB PO SCH (20:27)
[2018-09-29] MEDS: POLYETHYLENE (MIRALAX) 17 GM PACK PO SCH (20:28)
[2018-09-30] MEDS: ACETAMINOPHEN 500 MG TAB PO SCH ×3 (05:29→21:10)
[2018-09-30 06:11] LABS: Hemoglobin 8.9 g/dL (12.0-16.0); Mean Corpuscular Hgb Conc 34.2 g/dL (32-36); Mean Corpuscular Volume 98.9 fL (80-100); Mean Platelet Volume 9.8 fL (7.4-10.4); Platelet Count 216 K/uL (130-400); RDW Coefficient of Variation 13.5 % (11.5-14.5); RDW Standard Deviation 48.6 fL (36.4-46.3); Red Blood Count 2.63 M/uL (4.2-5.4)
[2018-09-30 06:37] LABS: Calcium 8.4 mg/dl (8.5-10.1); Creatinine Clr Calc Pharmacy 121.9 ml/min; Est GFR (African American) 105.6; Est GFR (Non-African American) 91.1; Magnesium 1.9 mg/dl (1.8-2.4)
--- NOTE | 2018-09-30 08:41 | Orthopedic Progress Note ---
Date of Service September 30, 2018 Assessment & Plan (1) Status post right knee replacement: 78 yo female stable POD #4 s/p right TKA, continued hyponatremia 1. Med management 2. DVT prophylaxis- ASA, SCDs 3. PT/OT 4. D/C planning- home w/ HH Subjective Pt resting in bed, pain controlled, denies complaints Physical Exam Vital Signs (Past 24 Hours): Last Vital Signs Temp 36.7 C 09/30/18 07:07 Pulse 81 09/30/18 07:07 Resp 18 09/30/18 07:07 BP 128/77 09/30/18 07:07 Pulse Ox 92 09/30/18 07:07 Physical Exam: Toes mobile, N/V/I, Prevena dressing in place Results & Data Laboratory Results 09/30/18 09/30/18 09/29/18 Range/Units 05:19 05:19 21:46 WBC 7.70 (4.8-10.8) K/uL RBC 2.63 L (4.2-5.4) M/uL Hgb 8.9 L (12.0-16.0) g/dL Hct 26.0 L (37-47) % MCV 98.9 (80-100) fL MCH 33.8 (25-34) pg MCHC 34.2 (32-36) g/dL RDW Std Deviation 48.6 H (36.4-46.3) fL RDW Coeff of Prabhakar 13.5 (11.5-14.5) % Plt Count 216 (130-400) K/uL MPV 9.8 (7.4-10.4) fL Sodium 126 L 125 L (136-145) mmol/L Potassium 4.0 (3.5-5.1) mmol/L Chloride 91 L (98-107) mmol/L Carbon Dioxide 30 (21-32) mmol/L Anion Gap 5.0 (3-11) BUN 14 (7-18) mg/dl Creatinine 0.55 L (0.6-1.2) mg/dl Est Cr Clr Drug Dosing 121.9 ml/min Est GFR ( Amer) 105.6 Est GFR (Non-Af Amer) 91.1 BUN/Creatinine Ratio 25.0 H (10-20) Glucose 96 (70-99) mg/dl Calcium 8.4 L (8.5-10.1) mg/dl Magnesium 1.9 (1.8-2.4) mg/dl TSH (0.300-4.500) uIu/ml Random Cortisol mcg/dl Urine Osmolality (500-800) mOsm/kg 09/29/18 09/29/18 09/29/18 Range/Units 15:32 10:28 09:32 WBC (4.8-10.8) K/uL RBC (4.2-5.4) M/uL Hgb (12.0-16.0) g/dL Hct (37-47) % MCV (80-100) fL MCH (25-34) pg MCHC (32-36) g/dL RDW Std Deviation (36.4-46.3) fL RDW Coeff of Prabhakar (11.5-14.5) % Plt Count (130-400) K/uL MPV (7.4-10.4) fL Sodium 125 L (136-145) mmol/L Potassium 4.2 (3.5-5.1) mmol/L Chloride 91 L (98-107) mmol/L Carbon Dioxide 29 (21-32) mmol/L Anion Gap 5.0 (3-11) BUN 14 (7-18) mg/dl Creatinine 0.62 (0.6-1.2) mg/dl Est Cr Clr Drug Dosing 109.1 ml/min Est GFR ( Amer) 101.5 Est GFR (Non-Af Amer) 87.6 BUN/Creatinine Ratio 23.0 H (10-20) Glucose 107 H (70-99) mg/dl Calcium 8.5 (8.5-10.1) mg/dl Magnesium (1.8-2.4) mg/dl TSH (0.300-4.500) uIu/ml Random Cortisol 30.11 mcg/dl Urine Osmolality 433 L (500-800) mOsm/kg 09/29/18 Range/Units 09:32 WBC (4.8-10.8) K/uL RBC (4.2-5.4) M/uL Hgb (12.0-16.0) g/dL Hct (37-47) % MCV (80-100) fL MCH (25-34) pg MCHC (32-36) g/dL RDW Std Deviation (36.4-46.3) fL RDW Coeff of Prabhakar (11.5-14.5) % Plt Count (130-400) K/uL MPV (7.4-10.4) fL Sodium (136-145) mmol/L Potassium (3.5-5.1) mmol/L Chloride (98-107) mmol/L Carbon Dioxide (21-32) mmol/L Anion Gap (3-11) BUN (7-18) mg/dl Creatinine (0.6-1.2) mg/dl Est Cr Clr Drug Dosing ml/min Est GFR ( Amer) Est GFR (Non-Af Amer) BUN/Creatinine Ratio (10-20) Glucose (70-99) mg/dl Calcium (8.5-10.1) mg/dl Magnesium (1.8-2.4) mg/dl TSH 0.908 (0.300-4.500) uIu/ml Random Cortisol mcg/dl Urine Osmolality (500-800) mOsm/kg
[2018-09-30] MEDS: SODIUM CHLORIDE 1 GM TABLET PO SCH ×3 (08:51→21:10)
[2018-09-30] MEDS: DOCUSATE SODIUM 100 MG CAP PO SCH (08:51)
[2018-09-30] MEDS: POTASSIUM CHLORIDE 10 MEQ TABCR PO SCH (08:51)
[2018-09-30] MEDS: FOLIC ACID 1 MG TAB PO SCH (08:52)
[2018-09-30] MEDS: ASPIRIN 81 MG ECTAB PO SCH ×2 (08:52→21:10)
[2018-09-30] MEDS: CYANOCOBALAMIN 500 MCG TABLET (VITAMIN B-12) PO SCH (08:52)
[2018-09-30] MEDS: FUROSEMIDE 40 MG TAB PO SCH (08:52)
[2018-09-30] MEDS: CARVEDILOL 3.125 MG TAB PO SCH ×2 (08:52→21:10)
[2018-09-30] MEDS: ENALAPRIL MALEATE 10 MG TAB PO SCH (08:53)
[2018-09-30] MEDS: AMLODIPINE BESYLATE 5 MG TAB PO SCH (08:53)
[2018-09-30] MEDS: CHOLECALCIFEROL 1,000 UNITS TAB PO SCH (08:53)
[2018-09-30] MEDS: MULTIVITAMIN TAB PO SCH (08:53)
[2018-09-30] MEDS: DULOXETINE HCL 30 MG CAP PO SCH (08:53)
[2018-09-30] MEDS: PANTOprazole 40 MG TAB PO SCH (08:53)
[2018-09-30] MEDS ORDERED: DOCUSATE SODIUM 100 MG CAP PO PRN (09:09)
[2018-09-30] MEDS: ONDANSETRON INJ 2 MG/ML 2 ML VIAL IV PRN (12:52)
[2018-09-30] MEDS: OXYCODONE HCL IR 5 MG TAB (IMMEDIATE RELEASE) PO PRN (12:54)
--- NOTE | 2018-09-30 14:11 | Hospitalist Progress Note ---
Date of Service September 30, 2018 Assessment & Plan (1) Tricompartment osteoarthritis of right knee: - S/p right TKA on 09/26, POD#4. - Pain control per primary team. - PT/OT - discharge with home health when medically stable. - DVT ppx with Aspirin 81 mg BID. (2) Hyponatremia: - Na level slightly improved to 126. - Appears euvolemic on exam; is not likely related to hypervolemic hyponatremia. - Urine studies completed -- may be related to SIADH due to urine osmo >serum osmo level and urine sodium level of 60. - Cortisol level & TSH were WNL; ACTH ordered in the AM -- her sister has h/o adrenal insufficiency. - Continue home Lasix 40 mg PO daily (was held for 4 days during operative period) - Fluid restriction of 1500 cc; NaCl tablets 1 gm TID. - Repeat Na level this afternoon and in the AM. (3) Chronic diastolic heart failure: - TTE in March 2018 showed EF 55-60%, grade I diastolic dysfunction. - Monitor daily weights and intake/output -- pt. reports baseline weight is 280 lb. - Continue ACEI, Coreg and Lasix as prescribed. (4) GERD (gastroesophageal reflux disease): - PPI PO qAM. (5) HTN (hypertension): - Continue home Coreg, ACEI, Amlodipine, Lasix as prescribed. (6) Anxiety: - Continue home Cymbalta as prescribed. (7) RLS (restless legs syndrome): - Continue home Requip as prescribed. (8) TRELL (obstructive sleep apnea): - Does not currently wear CPAP, has not tolerated in the past. (9) Rheumatoid arthritis: - MTX qThurs -- holding post op. Can resume on 10/05/18. - Continue folic acid 2 mg PO daily. (10) Anemia: - Hgb below baseline -- likely related to intra-op blood loss. - Will monitor CBC qAM. (11) Hyperlipidemia: - Continue home statin as prescribed. (12) Pulmonary HTN: - Moderate, pulm artery systolic pressure 52-57. (13) Mitral regurgitation: - Noted on most recent echo. (14) Tricuspid regurgitation: - Noted on most recent echo. (15) Chronic constipation: - Colace and Miralax prn. - Is having regular BMs. (16) DVT prophylaxis: - Aspirin 81 mg BID. Dispo: Discharge pending improvement in hyponatremia. Supervising Physician Co-Signing Physician Notes Attending Attestation - Chart reviewed in detail, care plan d/w PA Winnie Murillo. I agree w/ the braga components of her consult note. POD #4 from right TKR. Hyponatremia finally improving with standard SIADH treatment including salt tabs, lasix, and fluid restriction. Cont to trend the Na levels. Would not d/c until we have at least 36 hours of ongoing improvement and preferably a Na level of 130 or higher. Xavier Pedraza MD Subjective Pt. is doing well overall. She denies significant knee pain. Denies chest pain, SOB, constipation, urinary retention. Is on multiple meds per morning -- will hold vitamins to limit amount of PO meds as pt. is currently fluid restricted. Sodium level trending up slightly, is not stable for discharge yet. Review of Systems All systems reviewed & are unremarkable except as noted in HPI & below Constitutional: no fever, no chills, no fatigue and no weakness Respiratory: no cough and no dyspnea Cardiovascular: no chest pain, no palpitations and no edema Gastrointestinal: no abdominal pain, no nausea and no constipation Genitourinary (Female): no difficulty urinating Musculoskeletal: no back pain and no joint pain Integumentary: no non-healing lesions Allergy / Immunological: no rash Physical Exam Vital Signs (Past 24 Hours): Last Vital Signs Temp 36.7 C 09/30/18 07:07 Pulse 81 09/30/18 07:07 Resp 18 09/30/18 07:07 BP 128/77 09/30/18 07:07 Pulse Ox 92 09/30/18 07:07 Physical Exam: General: Resting comfortably in no apparent distress HEENT: NC/AT; PERRLA with EOMI; [place] conjunctiva, MMM. Neck: Supple and nontender Cardiac: RRR Lungs: CTA bilaterally Abdomen: Bowel normoactive X 4; Nontender to palpation Extremities: Warm. No edema in bilat LE. No erythema at incision site. Neuro: No focal weakness Skin: No rash Results & Data Laboratory Results 09/30/18 09/30/18 09/29/18 Range/Units 05:19 05:19 21:46 WBC 7.70 (4.8-10.8) K/uL RBC 2.63 L (4.2-5.4) M/uL Hgb 8.9 L (12.0-16.0) g/dL Hct 26.0 L (37-47) % MCV 98.9 (80-100) fL MCH 33.8 (25-34) pg MCHC 34.2 (32-36) g/dL RDW Std Deviation 48.6 H (36.4-46.3) fL RDW Coeff of Prabhakar 13.5 (11.5-14.5) % Plt Count 216 (130-400) K/uL MPV 9.8 (7.4-10.4) fL Sodium 126 L 125 L (136-145) mmol/L Potassium 4.0 (3.5-5.1) mmol/L Chloride 91 L (98-107) mmol/L Carbon Dioxide 30 (21-32) mmol/L Anion Gap 5.0 (3-11) BUN 14 (7-18) mg/dl Creatinine 0.55 L (0.6-1.2) mg/dl Est Cr Clr Drug Dosing 121.9 ml/min Est GFR ( Amer) 105.6 Est GFR (Non-Af Amer) 91.1 BUN/Creatinine Ratio 25.0 H (10-20) Glucose 96 (70-99) mg/dl Calcium 8.4 L (8.5-10.1) mg/dl Magnesium 1.9 (1.8-2.4) mg/dl 09/29/18 Range/Units 15:32 WBC (4.8-10.8) K/uL RBC (4.2-5.4) M/uL Hgb (12.0-16.0) g/dL Hct (37-47) % MCV (80-100) fL MCH (25-34) pg MCHC (32-36) g/dL RDW Std Deviation (36.4-46.3) fL RDW Coeff of Prabhakar (11.5-14.5) % Plt Count (130-400) K/uL MPV (7.4-10.4) fL Sodium 125 L (136-145) mmol/L Potassium 4.2 (3.5-5.1) mmol/L Chloride 91 L (98-107) mmol/L Carbon Dioxide 29 (21-32) mmol/L Anion Gap 5.0 (3-11) BUN 14 (7-18) mg/dl Creatinine 0.62 (0.6-1.2) mg/dl Est Cr Clr Drug Dosing 109.1 ml/min Est GFR ( Amer) 101.5 Est GFR (Non-Af Amer) 87.6 BUN/Creatinine Ratio 23.0 H (10-20) Glucose 107 H (70-99) mg/dl Calcium 8.5 (8.5-10.1) mg/dl Magnesium (1.8-2.4) mg/dl
[2018-09-30] MEDS: POLYETHYLENE (MIRALAX) 17 GM PACK PO SCH (21:04)
[2018-09-30] MEDS: SIMVASTATIN 20 MG TAB PO SCH (21:09)
[2018-09-30] MEDS: ROPINIROLE HCL 1 MG TABLET PO SCH (21:10)
[2018-09-30] MEDS: clonazePAM 0.5 MG TAB PO PRN (22:29)
[2018-10-01 05:49] LABS: Hematocrit (blood only) 26.1 % (37-47); Hemoglobin 8.7 g/dL (12.0-16.0); Mean Corpuscular Hgb Conc 33.3 g/dL (32-36); Mean Corpuscular Volume 101.6 fL (80-100); Mean Platelet Volume 9.4 fL (7.4-10.4); Platelet Count 240 K/uL (130-400); RDW Coefficient of Variation 13.7 % (11.5-14.5); RDW Standard Deviation 49.2 fL (36.4-46.3); Red Blood Count 2.57 M/uL (4.2-5.4); White Blood Count 7.47 K/uL (4.8-10.8)
[2018-10-01 06:09] LABS: BUN Creatinine Ratio 20.7 (10-20); Calcium 8.5 mg/dl (8.5-10.1); Creatinine Clr Calc Pharmacy 117.6 ml/min; Est GFR (African American) 104.4
[2018-10-01] MEDS: ACETAMINOPHEN 500 MG TAB PO SCH (06:26)
[2018-10-01] MEDS: PANTOprazole 40 MG TAB PO SCH (06:26)
--- NOTE | 2018-10-01 07:54 | Orthopedic Progress Note ---
Date of Service October 01, 2018 Assessment & Plan (1) Status post right knee replacement: 78 yo female stable POD #5 s/p right TKA, improved hyponatremia 1. Med management 2. DVT prophylaxis- ASA, SCDs 3. PT/OT 4. D/C planning- home w/ HH Subjective Pt resting in chair, pain controlled, denies complaints Musculoskeletal: as per Subjective / HPI Physical Exam Vital Signs (Past 24 Hours): Last Vital Signs Temp 36.7 C 10/01/18 06:32 Pulse 79 10/01/18 06:32 Resp 16 10/01/18 06:32 BP 137/80 10/01/18 06:32 Pulse Ox 94 10/01/18 06:32 Physical Exam: Prevena dressing in place, toes mobile, calves soft, nontender Results & Data Laboratory Results 10/01/18 10/01/18 10/01/18 Range/Units 05:21 05:21 05:21 WBC 7.47 (4.8-10.8) K/uL RBC 2.57 L (4.2-5.4) M/uL Hgb 8.7 L (12.0-16.0) g/dL Hct 26.1 L (37-47) % MCV 101.6 H (80-100) fL MCH 33.9 (25-34) pg MCHC 33.3 (32-36) g/dL RDW Std Deviation 49.2 H (36.4-46.3) fL RDW Coeff of Prabhakar 13.7 (11.5-14.5) % Plt Count 240 (130-400) K/uL MPV 9.4 (7.4-10.4) fL Sodium 131 L (136-145) mmol/L Potassium 4.0 (3.5-5.1) mmol/L Chloride 94 L (98-107) mmol/L Carbon Dioxide 30 (21-32) mmol/L Anion Gap 7.0 (3-11) BUN 12 (7-18) mg/dl Creatinine 0.57 L (0.6-1.2) mg/dl Est Cr Clr Drug Dosing 117.6 ml/min Est GFR ( Amer) 104.4 Est GFR (Non-Af Amer) 90.0 BUN/Creatinine Ratio 20.7 H (10-20) Glucose 103 H (70-99) mg/dl Calcium 8.5 (8.5-10.1) mg/dl ACTH Pending 09/30/18 Range/Units 14:15 WBC (4.8-10.8) K/uL RBC (4.2-5.4) M/uL Hgb (12.0-16.0) g/dL Hct (37-47) % MCV (80-100) fL MCH (25-34) pg MCHC (32-36) g/dL RDW Std Deviation (36.4-46.3) fL RDW Coeff of Prabhakar (11.5-14.5) % Plt Count (130-400) K/uL MPV (7.4-10.4) fL Sodium 127 L (136-145) mmol/L Potassium (3.5-5.1) mmol/L Chloride (98-107) mmol/L Carbon Dioxide (21-32) mmol/L Anion Gap (3-11) BUN (7-18) mg/dl Creatinine (0.6-1.2) mg/dl Est Cr Clr Drug Dosing ml/min Est GFR ( Amer) Est GFR (Non-Af Amer) BUN/Creatinine Ratio (10-20) Glucose (70-99) mg/dl Calcium (8.5-10.1) mg/dl ACTH
[2018-10-01] MEDS: CARVEDILOL 3.125 MG TAB PO SCH (08:30)
[2018-10-01] MEDS: AMLODIPINE BESYLATE 5 MG TAB PO SCH (08:30)
[2018-10-01] MEDS: ASPIRIN 81 MG ECTAB PO SCH (08:30)
[2018-10-01] MEDS: DULOXETINE HCL 30 MG CAP PO SCH (08:30)
[2018-10-01] MEDS: SODIUM CHLORIDE 1 GM TABLET PO SCH (08:30)
[2018-10-01] MEDS: POTASSIUM CHLORIDE 10 MEQ TABCR PO SCH (08:31)
[2018-10-01] MEDS: ENALAPRIL MALEATE 10 MG TAB PO SCH (08:31)
[2018-10-01] MEDS: FOLIC ACID 1 MG TAB PO SCH (08:31)
[2018-10-01] MEDS: FUROSEMIDE 40 MG TAB PO SCH (08:31)
[2018-10-01] MEDS: ONDANSETRON INJ 2 MG/ML 2 ML VIAL IV PRN (11:02)
--- NOTE | 2018-10-01 12:44 | Hospitalist Progress Note ---
Date of Service October 01, 2018 Assessment & Plan (1) Tricompartment osteoarthritis of right knee: - S/p right TKA on 09/26, POD#5. - Pain control per primary team. - PT/OT - discharge with home health today. - DVT ppx with Aspirin 81 mg BID. (2) Hyponatremia: - Na level improved to 131. - Appears euvolemic on exam; is not related to hypervolemic hyponatremia. - Urine studies completed -- may be related to SIADH. - Cortisol level & TSH WNL; ACTH is pending. - Continue home Lasix 40 mg PO daily (was held for 4 days during operative period) - Fluid restriction of 1800 cc; NaCl tablets 1 gm BID (decreased from TID) -- will continue both fluid restriction and NaCl tabs at home. - Script provided for labs in 3-4 days as outpatient. (3) Chronic diastolic heart failure: - TTE in March 2018 showed EF 55-60%, grade I diastolic dysfunction. - Monitor daily weights and intake/output -- pt. reports baseline weight is 280 lb. - Continue ACEI, Coreg and Lasix as prescribed. (4) GERD (gastroesophageal reflux disease): - PPI PO qAM. (5) HTN (hypertension): - Continue home Coreg, ACEI, Amlodipine, Lasix as prescribed. (6) Anxiety: - Continue home Cymbalta as prescribed. (7) RLS (restless legs syndrome): - Continue home Requip as prescribed. (8) TRELL (obstructive sleep apnea): - Does not currently wear CPAP, has not tolerated in the past. (9) Rheumatoid arthritis: - MTX qThurs -- holding post op. Can resume on 10/05/18. - Continue folic acid 2 mg PO daily. (10) Anemia: - Hgb below baseline -- likely related to intra-op blood loss. - Will monitor CBC qAM. (11) Hyperlipidemia: - Continue home statin as prescribed. (12) Pulmonary HTN: - Moderate, pulm artery systolic pressure 52-57. (13) Mitral regurgitation: - Noted on most recent echo. (14) Tricuspid regurgitation: - Noted on most recent echo. (15) Chronic constipation: - Colace and Miralax prn. - Is having regular BMs. (16) DVT prophylaxis: - Aspirin 81 mg BID. Dispo: Discharge to home today. Supervising Physician Co-Signing Physician Notes Attending Attestation - Chart reviewed in detail, care plan d/w SHANEL Murillo. I agree w/ the braga components of her consult note. POD #5 from right TKR. Hyponatremia, likely due to SIADH, improved to level of 131 today. Ok to d/c home with fluid restriction, NaCL tabs BID, lasix, and repeat BMP in about 3 days. TSH/cortisol noted to be normal. Vitals stable. Xavier Pedraza MD Subjective Pt. had nausea this morning but is tolerating PO intake. Na level improved to 131. Will be discharged to home. Review of Systems All systems reviewed & are unremarkable except as noted in HPI & below Constitutional: no fever, no chills, no fatigue and no weakness Respiratory: no cough and no dyspnea Cardiovascular: no chest pain, no palpitations and no edema Gastrointestinal: + nausea; no abdominal pain, no vomiting, no constipation and no diarrhea/loose stools Genitourinary (Female): no difficulty urinating Musculoskeletal: no back pain and no joint pain Integumentary: no non-healing lesions Allergy / Immunological: no rash Physical Exam Vital Signs (Past 24 Hours): Last Vital Signs Temp 36.7 C 10/01/18 10:23 Pulse 79 10/01/18 10:23 Resp 16 10/01/18 10:23 BP 137/80 10/01/18 10:23 Pulse Ox 94 10/01/18 10:23 Physical Exam: General: Resting comfortably in no apparent distress HEENT: NC/AT; PERRLA with EOMI; [place] conjunctiva, MMM. Neck: Supple and nontender Cardiac: RRR Lungs: CTA bilaterally Abdomen: Bowel normoactive X 4; Nontender to palpation Extremities: Warm. No edema in bilat LE. Neuro: No focal weakness Skin: No rash Results & Data Laboratory Results 10/01/18 10/01/18 10/01/18 Range/Units 05:21 05:21 05:21 WBC 7.47 (4.8-10.8) K/uL RBC 2.57 L (4.2-5.4) M/uL Hgb 8.7 L (12.0-16.0) g/dL Hct 26.1 L (37-47) % MCV 101.6 H (80-100) fL MCH 33.9 (25-34) pg MCHC 33.3 (32-36) g/dL RDW Std Deviation 49.2 H (36.4-46.3) fL RDW Coeff of Prabhakar 13.7 (11.5-14.5) % Plt Count 240 (130-400) K/uL MPV 9.4 (7.4-10.4) fL Sodium 131 L (136-145) mmol/L Potassium 4.0 (3.5-5.1) mmol/L Chloride 94 L (98-107) mmol/L Carbon Dioxide 30 (21-32) mmol/L Anion Gap 7.0 (3-11) BUN 12 (7-18) mg/dl Creatinine 0.57 L (0.6-1.2) mg/dl Est Cr Clr Drug Dosing 117.6 ml/min Est GFR ( Amer) 104.4 Est GFR (Non-Af Amer) 90.0 BUN/Creatinine Ratio 20.7 H (10-20) Glucose 103 H (70-99) mg/dl Calcium 8.5 (8.5-10.1) mg/dl ACTH Pending 09/30/18 Range/Units 14:15 WBC (4.8-10.8) K/uL RBC (4.2-5.4) M/uL Hgb (12.0-16.0) g/dL Hct (37-47) % MCV (80-100) fL MCH (25-34) pg MCHC (32-36) g/dL RDW Std Deviation (36.4-46.3) fL RDW Coeff of Prabhakar (11.5-14.5) % Plt Count (130-400) K/uL MPV (7.4-10.4) fL Sodium 127 L (136-145) mmol/L Potassium (3.5-5.1) mmol/L Chloride (98-107) mmol/L Carbon Dioxide (21-32) mmol/L Anion Gap (3-11) BUN (7-18) mg/dl Creatinine (0.6-1.2) mg/dl Est Cr Clr Drug Dosing ml/min Est GFR ( Amer) Est GFR (Non-Af Amer) BUN/Creatinine Ratio (10-20) Glucose (70-99) mg/dl Calcium (8.5-10.1) mg/dl ACTH
--- NOTE | 2018-10-10 02:05 | Discharge Summary ---
DISCHARGE DIAGNOSIS: Right knee osteoarthritis. SECONDARY DIAGNOSES: Hyponatremia during this visit, history of abdominal aortic aneurysm with monitoring, anxiety, cardiomegaly, chronic constipation, gastroesophageal reflux disease, glaucoma right eye, hiatal hernia, migraine headache, squamous cell carcinoma, hyperlipidemia, hypertension, mitral valve prolapse, osteoarthritis, pulmonary hypertension, Raynaud's disease, restless leg syndrome, rheumatoid arthritis, sleep apnea. CONSULTS: Rosalind Powell MD COMPLICATIONS: None. PROCEDURES: Right total knee arthroplasty performed by Dr. Herring on 09/26/2018. BRIEF HISTORY: As dictated in the history and physical. HOSPITAL SUMMARY: The patient was admitted on the above date and had the above-noted surgery performed which she tolerated well. Dr. Powell was consulted for postoperative medical management and continued to follow the patient during her stay along with [facility] hospitalist service. On her first postoperative day, she was awake and alert, sitting up in bed. She was having mild pain behind the knee that morning. She had no other complaints. No shortness of breath, chest pain or lightheadedness and plans to have home health services upon discharge. Vital signs were stable. She is afebrile. Dressings clean, dry and intact. Calves were soft, nontender. Neurovascularly intact. Toes were mobile. Hemovac had drained 50 mL from previous shift. Hemoglobin was 10.2 and sodium was 132. She was started on physical therapy protocol and continued on DVT prophylaxis and pain management. By her second postoperative day, she was awake and alert, sitting up in bed, having mild pain. She had no other complaints and was planning to go home. Vital signs were stable. She was afebrile. Neurovascularly intact. Calves were soft, nontender. Prevena dressing was clean and dry and intact. Toes were mobile and it was noted that her sodium had dropped to 129. Medicine service continued to follow this closely and continued to replete the sodium and she was continued on her PT protocols for the next several days. By the third postoperative day, she was having a little mild nausea that morning, but otherwise felt that her knee was doing well, although there was some mild pain. She denies shortness of breath, chest pain, lightheadedness, no emesis. She denied calf pain. That morning, sodium level was 125 compared to the previous day and vital signs were stable. She is afebrile. Prevena dressing was intact and functioning. No overt drainage was noted. Calves were soft, nontender. Neurovascularly intact. Toes were mobile. Over the next several days, she continue to remain stable and by 10/01/2018, sodium is 131, she was progressing well with her physical therapy, remaining orthopedically stable as well as medically stable. Medicine service gave her instructions for her sodium intake, etc., and follow up and she was otherwise remaining stable and it was felt she could be discharged home on 10/01/2018. For further review, please see chart. LABORATORY AND X-RAY DATA: As per chart. DISCHARGE INSTRUCTIONS: The patient was discharged home in satisfactory condition on 10/01/2018. DIET: Regular. ACTIVITY: Weightbearing as tolerated on the right lower extremity. No driving until cleared by her surgeon. Follow TK instruction sheets and special care instructions as noted. The patient to follow up with primary care provider in 1-2 weeks and CBC and BMP to be done in 3 days. Follow up with Dr. Herring in 2 weeks. The patient to call for appointment if one has not been made for you. DISCHARGE MEDICATIONS: Acetaminophen 1000 mg p.o. q.8 hours, aspirin 81 mg p.o. b.i.d., oxycodone 5-10 mg p.o. q.6-8 hours, sodium chloride 1000 mg p.o. b.i.d. Resume home meds as listed and stop taking previous aspirin dosage, Humira and methotrexate.
== END 2018-10-01 11:32 | disposition home health service (06) | DRG 470 ==
LOC: ASU 05:45 → 3E 10:50

== ENCOUNTER 2018-10-16 11:37 | Inpatient (IN) ==
[~2018-10-16 11:37] MED LIST changes: -ACETAMINOPHEN 500 MG TAB PO SCH; -ADAL1INJ INJ; -ASPI81TA28 PO; -ATEN-173 PO; -BENA20TA14 PO; -CALC500C3 PO; -CALC500T72 PO; +CEFAZOLIN 2000MG 2,000 MG/15 ML SYR IV SCH; -CEFAZOLIN 3000 MG/65 ML D5W 65 ML IV SCH; -CHOL1000 PO; -CLON0.5T3 PO; -COEN1CAP28 PO; -CYM/30 PO; -CeleBREX 200 MG CAP PO SCH; -DEXAMETHASONE 4 MG TAB PO SCH; -FAMOTIDINE 20 MG TAB PO SCH; -FERR142T PO; -FIBE1CHW PO; -FOLI1TAB7 PO; -FURO20TA PO; -GABAPENTIN 300 MG CAP PO SCH; -IBUP600T44 PO; -LACT1CAP3 PO; -LACTATED RINGER'S 1000ML 1,000 ML IV SCH; -LACTATED RINGER'S 1000ML IV SCH; -METH2.5T PO; -METOCLOPRAMIDE HCL 10 MG TAB PO SCH; -MULT-506 PO; -PANT40TA PO; -POLY335019 PO; -POTA20TA16 PO; -ROPI1TAB PO; -ROPIVACAINE 5MG/ML 30 ML 150 MG, BUPIVACAINE/EPINEPHR 0.5% MPF 30 ML, KETOROLAC TROMETH... INFIL SCH; -SIMV20TA2 PO; -ZNTT/150 PO
[2018-10-16] MEDS ORDERED: BACITRACIN INJ 50,000 UNIT VIAL ONE ×2 (12:27→16:49)
--- NOTE | 2018-10-16 15:18 | History & Physical Report ---
Date of Service October 16, 2018 History of Present Illness Chief Complaint: right knee wound dehiscence Primary Care Provider: Zoe Logan Yisel is a 78 year old female who is approximately 20 days out of her right total knee replacement, was seen last week for routine post-op care and was doing well, unfortunately she had a fall earlier today and was seen at [facility] for a right knee wound dehiscence. Dr Herring was contacted at our office and discussed care with ER Physician, it was decided that she would be transferred to [facility] for definitive care and I&D of her left knee wound and possible poly exchange. Allergies Allergy/AdvReac Type Severity Reaction Status Date / Time No Known Allergies Allergy Verified 09/26/18 06:13 Home Medications Home Medications Medication Instructions Recorded Confirmed Type Adult Multivitamin Gummies 1 dose PO QPM 09/04/18 09/26/18 History Culturelle 1 cap PO QAM 09/04/18 09/26/18 History Fiber Gummies 1 dose PO QPM 09/04/18 09/26/18 History Slow Fe 142 mg PO Q OTHER DAY 09/04/18 09/26/18 History amlodipine 2.5 mg PO QAM 09/04/18 09/26/18 History ascorbic acid (vitamin C) [Vitamin 500 mg PO QAM 09/04/18 09/26/18 History C] benazepril 20 mg PO QAM 09/04/18 09/26/18 History calcium carbonate [Calcium 500] 500 mg PO HS 09/04/18 09/26/18 History carvedilol 3.125 mg PO BID 09/04/18 09/26/18 History cholecalciferol (vitamin D3) 2,000 unit PO QAM 09/04/18 09/26/18 History [Vitamin D3] clonazepam 0.5 mg PO DAILY PRN 09/04/18 09/26/18 History cyanocobalamin (vitamin B-12) 1,000 mcg PO QAM 09/04/18 09/26/18 History [Vitamin B-12] duloxetine 30 mg PO QAM 09/04/18 09/26/18 History folic acid 2 mg PO QPM 09/04/18 09/26/18 History furosemide 40 mg PO QAM 09/04/18 09/26/18 History pantoprazole 40 mg PO QAM 09/04/18 09/26/18 History polyethylene glycol 3350 [Miralax] 17 g PO HS 09/04/18 09/26/18 History potassium chloride [Klor-Con 10] 10 meq PO QAM 09/04/18 09/26/18 History ranitidine HCl 150 mg PO HS PRN 09/04/18 09/26/18 History ropinirole [Requip] 2 mg PO HS 09/04/18 09/26/18 History simvastatin 20 mg PO PM 09/04/18 09/26/18 History aspirin [Ecotrin Low Strength] 81 mg PO BID 30 Days #60 tab 09/28/18 Rx oxycodone 5 - 10 mg PO .q6-8 hours PRN #30 09/28/18 Rx tab sodium chloride 1,000 mg PO BID #14 tab 10/01/18 Rx Past Med/Surg History Medical History AAA (abdominal aortic aneurysm) PCP MONITORING Anxiety Cardiomegaly Chronic constipation GERD (gastroesophageal reflux disease) Glaucoma RT EYE Hiatal hernia History of benign breast biopsy History of migraine History of recent steroid use RECENTLY PRESCRIBED PREDNISONE FOR RA x 3 WEEKS. LAST DOSE 08/28/18 History of squamous cell carcinoma Hyperlipidemia Hypertension Mitral regurgitation Mild to Moderate Osteoarthritis Pulmonary hypertension Moderate (Pulmonary Artery Systolic Pressure - 52-57 mmHg) Raynaud's disease Restless leg syndrome Rheumatoid arthritis Sleep apnea DOES NOT TOLERATE CPAP Tricuspid regurgitation Moderate Surgical History Status post total right knee replacement History of cardiac cath 2016 - [facility] - NO STENTS/ANGIOPLASTY History of colonoscopy History of esophagogastroduodenoscopy (EGD) History of eye surgery RT EYE X 2 - LASER SECONDARY TO GLAUCOMA History of foot surgery RT History of squamous cell carcinoma excision History of total knee replacement LEFT Family History Mother Family history of diabetes mellitus Social History Preferred Language: Malay Communication Ability: Effective Beliefs That Will Affect Care: None Current Living Situation: Family Feels Safe at Home: Yes Smoking Status: Never smoker Second Hand Exposure: No Hx Alcohol Use: No Hx Substance Use: No Review of Systems Review of Systems: All systems reviewed & are unremarkable except as noted in HPI & below Constitutional: no fever and no chills Respiratory: no cough and no dyspnea Cardiovascular: no chest pain, no dyspnea and no orthopnea Gastrointestinal: no abdominal pain, no nausea and no vomiting Musculoskeletal: as per Subjective / HPI
--- NOTE | 2018-10-16 15:22 | History & Physical Report ---
Date of Service October 16, 2018 Assessment & Plan (1) Wound dehiscence: Patient states that she has been without food and water since 8:00 this morning. Plan to be to take her to the operating room this afternoon where open irrigation and debridement will be performed by Dr. Herring. If the wound proves to show that the dehiscence includes the capsule, patient will likely undergo polyethylene bearing change as well. History of Present Illness Chief Complaint: Painful right knee with wound dehiscence Primary Care Provider: Zoe Logan Is a 78-year-old female known to our practice who is status post right total knee arthroplasty approximately 3 weeks out. Is doing well. This morning she was dressed and ready for her physical therapist to come to the house. She was changing her position in a chair and ended up falling forward and onto her right knee in a flexed position. She had immediate pain in the knee and stated that it was bleeding quite a bit. She had help getting to [facility] emergency room in [place]. She states she had no loss of consciousness. She denied lightheadedness, dizziness, chest pain or shortness of breath prior to or after the fall. She did not hit her head. Dr. Herring was called and had the patient transferred up to [facility] to take care of her right knee wound dehiscence. Other than being upset over her accident, the patient is currently stable. Of note, her last day, she was hyponatremic. She states that she found out just recently that her latest sodium was 136. She is now admitted for further care for her right knee wound dehiscence. Allergies Allergy/AdvReac Type Severity Reaction Status Date / Time No Known Allergies Allergy Verified 09/26/18 06:13 Home Medications Home Medications Medication Instructions Recorded Confirmed Type Adult Multivitamin Gummies 1 dose PO QPM 09/04/18 09/26/18 History Culturelle 1 cap PO QAM 09/04/18 09/26/18 History Fiber Gummies 1 dose PO QPM 09/04/18 09/26/18 History Slow Fe 142 mg PO Q OTHER DAY 09/04/18 09/26/18 History amlodipine 2.5 mg PO QAM 09/04/18 09/26/18 History ascorbic acid (vitamin C) [Vitamin 500 mg PO QAM 09/04/18 09/26/18 History C] benazepril 20 mg PO QAM 09/04/18 09/26/18 History calcium carbonate [Calcium 500] 500 mg PO HS 09/04/18 09/26/18 History carvedilol 3.125 mg PO BID 09/04/18 09/26/18 History cholecalciferol (vitamin D3) 2,000 unit PO QAM 09/04/18 09/26/18 History [Vitamin D3] clonazepam 0.5 mg PO DAILY PRN 09/04/18 09/26/18 History cyanocobalamin (vitamin B-12) 1,000 mcg PO QAM 09/04/18 09/26/18 History [Vitamin B-12] duloxetine 30 mg PO QAM 09/04/18 09/26/18 History folic acid 2 mg PO QPM 09/04/18 09/26/18 History furosemide 40 mg PO QAM 09/04/18 09/26/18 History pantoprazole 40 mg PO QAM 09/04/18 09/26/18 History polyethylene glycol 3350 [Miralax] 17 g PO HS 09/04/18 09/26/18 History potassium chloride [Klor-Con 10] 10 meq PO QAM 09/04/18 09/26/18 History ranitidine HCl 150 mg PO HS PRN 09/04/18 09/26/18 History ropinirole [Requip] 2 mg PO HS 09/04/18 09/26/18 History simvastatin 20 mg PO PM 09/04/18 09/26/18 History aspirin [Ecotrin Low Strength] 81 mg PO BID 30 Days #60 tab 09/28/18 Rx oxycodone 5 - 10 mg PO .q6-8 hours PRN #30 09/28/18 Rx tab sodium chloride 1,000 mg PO BID #14 tab 10/01/18 Rx Past Med/Surg History Medical History AAA (abdominal aortic aneurysm) PCP MONITORING Anxiety Cardiomegaly Chronic constipation GERD (gastroesophageal reflux disease) Glaucoma RT EYE Hiatal hernia History of benign breast biopsy History of migraine History of recent steroid use RECENTLY PRESCRIBED PREDNISONE FOR RA x 3 WEEKS. LAST DOSE 08/28/18 History of squamous cell carcinoma Hyperlipidemia Hypertension Mitral regurgitation Mild to Moderate Osteoarthritis Pulmonary hypertension Moderate (Pulmonary Artery Systolic Pressure - 52-57 mmHg) Raynaud's disease Restless leg syndrome Rheumatoid arthritis Sleep apnea DOES NOT TOLERATE CPAP Tricuspid regurgitation Moderate Surgical History Status post total right knee replacement History of cardiac cath 2016 - [facility] - NO STENTS/ANGIOPLASTY History of colonoscopy History of esophagogastroduodenoscopy (EGD) History of eye surgery RT EYE X 2 - LASER SECONDARY TO GLAUCOMA History of foot surgery RT History of squamous cell carcinoma excision History of total knee replacement LEFT Family History Mother Family history of diabetes mellitus Social History Preferred Language: Pashto Communication Ability: Effective Beliefs That Will Affect Care: None Current Living Situation: Family Feels Safe at Home: Yes Smoking Status: Never smoker Second Hand Exposure: No Hx Alcohol Use: No Hx Substance Use: No Review of Systems Review of Systems: Patient denies any recent fevers, chills, night sweats, unexplained weight loss or weight gain. She has had no flu or cold-like symptoms. No increased cough or sputum production. Denies shortness of breath at rest. Denies chest pain, chest pressure, irregular heartbeat. Denies hemoptysis, dyspnea. Denies abdominal pain, hematemesis, melena. No recent hematuria, pyuria, dysuria. No history of CVA, TIA, seizure disorder. Physical Exam Physical Exam: Head is normocephalic, and atraumatic. She has no scleral icterus or injection seen at this time. Nasal airway is patent. Oral mucosa is pink and moist Neck is supple Heart - regular rate and rhythm with grade 2/6 murmur heard best at the left sternal border Lungs-clear to auscultation Abdomen-abdomen is soft, obese, and nontender. Bowel sounds are present and active x4 Genitalia and rectal not performed at this time. Extremities-on examination of her right lower extremity, there is an ABD pad over the right knee. This is peeled back to reveal the right knee incision wound that is open. Majority of the wound is open except for 2 cm above and below wound at the apex's. She has some dark clot noted over some of the wound and I cannot appreciate seeing any metal at this time. Calves are soft and nontender. No attempts were made to do range of motion of the right knee at this time due to wound dehiscence. Right hip and right ankle range of motion are unaffected. Left lower extremity is benign at this time and is nontender at the hip knee and ankle. She does have some noted edema of both lower extremities. Upper extremities are benign and within normal limits as far as range of motion at the shoulders elbows and wrist. She denies neck pain, thoracic pain, low back pain. She has no gross motor or sensory loss at this time.
[2018-10-16] MEDS ORDERED: ONDANSETRON INJ 2 MG/ML 2 ML VIAL IV PRN ×3 (15:39→19:18)
[2018-10-16] MEDS ORDERED: HYDROmorphone INJ 0.5 MG/0.5 ML SYR IV PRN (15:39)
[2018-10-16] MEDS ORDERED: SODIUM CHLORIDE 0.9% 1000ML 1,000 ML IV SCH ×2 (15:45→19:18)
[2018-10-16 16:04] LABS: Basophils # (auto) 0.02 K/uL (0-0.2); Basophils % (auto) 0.4 %; Eosinophils # (auto) 0.12 K/uL (0-0.5); Eosinophils % (auto) 2.3 %; Hematocrit (blood only) 31.9 % (37-47); Hemoglobin 10.3 g/dL (12.0-16.0); Immature Granulocytes # (auto) 0.01 K/uL (0.00-0.02); Immature Granulocytes % (auto) 0.2 %; Lymphocytes # (auto) 1.08 K/uL (1.2-3.4); Lymphocytes % (auto) 20.9 %; Mean Corpuscular Volume 101.3 fL (80-100); Mean Platelet Volume 8.8 fL (7.4-10.4); Monocytes # (auto) 0.68 K/uL (0.11-0.59); Monocytes % (auto) 13.2 %; Neutrophils # (auto) 3.26 K/uL (1.4-6.5); Platelet Count 438 K/uL (130-400); RDW Coefficient of Variation 14.3 % (11.5-14.5); Red Blood Count 3.15 M/uL (4.2-5.4); White Blood Count 5.17 K/uL (4.8-10.8)
[2018-10-16 16:28] LABS: BUN Creatinine Ratio 10.3 (10-20); Calcium 8.7 mg/dl (8.5-10.1); Est GFR (African American) 94.3; Est GFR (Non-African American) 81.3; Potassium 3.7 mmol/L (3.5-5.1)
--- NOTE | 2018-10-16 16:35 | Anesthesiology Consultation ---
Date of Service October 16, 2018 Assessment & Plan (1) Encounter for pre-operative examination: Chart Review Chart Review: Acceptable Risk for Surgery and Patient NOT seen in Pre Admission Testing Consults Requested none ASA ASA3 Proposed Anesthesia Anesthesia Type: General (discussed as backup) and Spinal Anesthesia Line Insertion: Arterial line (consented) Risk / Benefits Reviewed With: PT / POA / Parent / Guardian, Accepts Plan and Informed Consent Obtained History Surgery Operation Date: 10/16/18 16:20 Proposed Procedures p Right Incision and Drainage Wound Dehissence Possible Robyn Martin - Pieter Herring DO Height/Weight Height: 5 ft 7 in Weight: 129.1 kg Allergies Allergy/AdvReac Type Severity Reaction Status Date / Time No Known Allergies Allergy Verified 09/26/18 06:13 Medications Home Medications Medication Instructions Recorded Confirmed Last Taken Adult Multivitamin Gummies 1 dose PO QPM 09/04/18 09/26/18 09/24/18 21:00 Slow Fe 142 mg PO Q OTHER DAY 09/04/18 09/26/18 09/25/18 21:00 amlodipine 2.5 mg PO QAM 09/04/18 09/26/18 09/25/18 21:00 ascorbic acid (vitamin C) [Vitamin 500 mg PO QAM 09/04/18 09/26/18 09/25/18 12:00 C] benazepril 20 mg PO QAM 09/04/18 09/26/18 09/25/18 09:00 calcium carbonate [Calcium 500] 500 mg PO HS 09/04/18 09/26/18 09/24/18 21:00 carvedilol 3.125 mg PO BID 09/04/18 09/26/18 09/26/18 04:00 cholecalciferol (vitamin D3) 2,000 unit PO QAM 09/04/18 09/26/18 09/24/18 09:00 [Vitamin D3] clonazepam 0.5 mg PO DAILY PRN 09/04/18 09/26/18 09/26/18 04:00 duloxetine 30 mg PO QAM 09/04/18 09/26/18 09/26/18 04:00 folic acid 2 mg PO QPM 09/04/18 09/26/18 09/25/18 09:00 furosemide 40 mg PO QAM 09/04/18 09/26/18 09/25/18 09:00 pantoprazole 40 mg PO QAM 09/04/18 09/26/18 09/26/18 04:00 polyethylene glycol 3350 [Miralax] 17 g PO HS 09/04/18 09/26/18 09/24/18 21:00 potassium chloride [Klor-Con 10] 10 meq PO QAM 09/04/18 09/26/18 09/25/18 09:00 ranitidine HCl 150 mg PO HS PRN 09/04/18 09/26/18 09/26/18 04:00 ropinirole [Requip] 2 mg PO HS 09/04/18 09/26/18 09/24/18 21:00 simvastatin 20 mg PO PM 09/04/18 09/26/18 09/25/18 21:00 aspirin [Ecotrin Low Strength] 81 mg PO BID 30 Days #60 tab 09/28/18 Unknown sodium chloride 1,000 mg PO BID #14 tab 10/01/18 Unknown NPO Date Last Intake of Fluids: 10/16/18 Time Last Intake of Fluids: 08:00 Date Last Intake of Solids: 10/16/18 Time Last Intake of Solids: 08:00 Past Medical History Medical History AAA (abdominal aortic aneurysm) PCP MONITORING Anxiety Cardiomegaly Chronic constipation GERD (gastroesophageal reflux disease) Glaucoma RT EYE Hiatal hernia History of benign breast biopsy History of migraine History of recent steroid use RECENTLY PRESCRIBED PREDNISONE FOR RA x 3 WEEKS. LAST DOSE 08/28/18 History of squamous cell carcinoma Hyperlipidemia Hypertension Mitral regurgitation Mild to Moderate Osteoarthritis Pulmonary hypertension Moderate (Pulmonary Artery Systolic Pressure - 52-57 mmHg) Raynaud's disease Restless leg syndrome Rheumatoid arthritis Sleep apnea DOES NOT TOLERATE CPAP Tricuspid regurgitation Moderate Exercise / Class Metabolic Activity II 4-5 Yardwork/Stairs/Walk up hill Past Family History Family History Mother Family history of diabetes mellitus Past Surgical History Surgical History Status post total right knee replacement History of cardiac cath 2016 - [facility] - NO STENTS/ANGIOPLASTY History of colonoscopy History of esophagogastroduodenoscopy (EGD) History of eye surgery RT EYE X 2 - LASER SECONDARY TO GLAUCOMA History of foot surgery RT History of squamous cell carcinoma excision History of total knee replacement LEFT Past Anesthesia History No Hx of Anesthesia Complications and No Family Hx of Anesthesia Complications History of PONV No Hx of PONV, No Family Hx of PONV and No Hx of Motion Sickness Social History Smoking Status: Never smoker Do You Dip or Chew Tobacco: No Hx Alcohol Use: No Hx Substance Use: No substance use type: does not use Review of Systems no chest pain or sob, does get sob easily Physical Exam Vital Signs Last Vital Signs Temp 36.9 C 10/16/18 16:18 Pulse 87 10/16/18 16:18 Resp 18 10/16/18 16:18 BP 160/84 H 10/16/18 16:18 Pulse Ox 94 10/16/18 16:18 Constitutional + morbidly obese ENMT Mouth: + edentulous; no TMJ abnormality Thyromental Distance: > or= 3.5 Finger Breadths Mallampati Class: II Neck normal visual inspection and + thick neck Respiratory normal respiratory effort Auscultation: lungs clear to auscultation bilaterally Cardiovascular Rate/Rhythm: regular rate and regular rhythm Musculoskeletal Extremities: + lower leg abnormality ( R knee wound) Neurologic moves all extremities Psychiatric Orientation: alert and oriented x 3 Testing Laboratory Results 10/16/18 15:53 10/16/18 15:53
[2018-10-16 16:39] LABS: Mean Corpuscular Hgb Conc 32.3 g/dL (32-36)
[2018-10-16] MEDS ORDERED: MIDAZOLAM HCL 1 MG/ML 2ML VIAL ONE (16:41)
[2018-10-16] MEDS ORDERED: fentaNYL citrate 100 MCG/2 ML VIAL ONE (16:41)
--- NOTE | 2018-10-16 16:41 | History & Physical Bridge Note ---
Date of Service October 16, 2018 History & Physical Bridge Note I have examined the patient, reviewed the History & Physical and in the interval since the performance of the History & Physical I have noted the following changes of clinical significance: no changes noted
[2018-10-16] MEDS ORDERED: BUPIVACAINE 0.5 % 5 MG/1 ML PF 10ML VIAL ONE (16:44)
[2018-10-16] MEDS ORDERED: CEFAZOLIN 3000MG/72.5 ML BAG IV ONE (16:44)
[2018-10-16] MEDS ORDERED: PHENYLEPHRINE 100MCG/ML 5ML SYR IV PRN (17:06)
[2018-10-16] MEDS ORDERED: fentaNYL citrate 100 MCG/2 ML VIAL IV PRN (17:06)
[2018-10-16] MEDS ORDERED: ATROPINE SULFATE 0.1 MG/ML 10ML SYR IV PRN (17:06)
[2018-10-16] MEDS ORDERED: ePHEDrine sulfate 50 MG/ML AMP IV PRN (17:06)
[2018-10-16] MEDS ORDERED: LABETALOL HCL IV 5 MG/ML 20ML IV PRN (17:06)
[2018-10-16] MEDS ORDERED: KETAMINE HCL INJ 50 MG/ML 10 ML VIAL ONE (17:08)
[2018-10-16] MEDS ORDERED: LIDOCAINE HCL 2% 2 ML VIAL/AMP(20MG/ML) INFIL ONE (17:12)
[2018-10-16] MEDS ORDERED: PROPOFOL IV EMULSION 10 MG/ML 20 ML VIAL IV ONE (17:12)
[2018-10-16] MEDS ORDERED: GLYCOPYRROLATE 0.2 MG/ML VIAL ONE (17:12)
[2018-10-16] MEDS ORDERED: DEXAMETHASONE SOD INJ 4 MG/ML VIAL ONE (17:12)
[2018-10-16] MEDS ORDERED: ONDANSETRON INJ 2 MG/ML 2 ML VIAL ONE (17:12)
--- NOTE | 2018-10-16 17:41 | Operative Report ---
Post Operative Report Pre & Post Diagnosis Operation Date: 10/16/18 16:20 <No data on this case meets the specified criteria> Wound dehiscence right total knee wound Wound dehiscence superficial right total knee wound Procedure I&D wound lavage with superficial closure right total knee wound Operation Date: 10/16/18 16:20 <No data on this case meets the specified criteria> Surgeon Pieter Herring, Stereotype Molder None Estimated Blood Loss 8 Findings Consistent with Post-Op Diagnosis Patient presents after event having been 3 weeks status post right total knee arthroplasty presents after having had a fall on the right knee after missing a step presents with a wound dehiscence with superficial wound there is no failure of the deep fascial wound and no exposure of the actual implant the medial retinacular incision was checked continuously no evidence of deep wound exposure was noted was all superficial complete dehiscence from the most proximal to the most distal aspect approximate 20 cm of anterior superficial knee wound Specimens None Drains Gardenia drain Complications none Disposition Accompanied Patient To Recovery: No Disposition: Recovery Room Indications Patient presents after having had a fall presented to the emergency room was transferred to [facility] for dehisced anterior knee wound 3 weeks status post total knee arthroplasty was superficial in nature only did not breach the deep capsule Description of Procedure After proper prepping draping the right knee wound the wound was prepped with Betadine the wound was thoroughly irrigated debridement lavage with 6 L of sterile saline solution there was no penetration of the wound through the retinacular repair was all superficial skin only the wound was irrigated with 6 L of sterile saline with bacitracin after thorough irrigation was subcu was closed with 2-0 Vicryl skin was closed skin clips sterile compressive dressing and a Gardenia dressing was placed the patient was taken to recovery room in sta ble condition please note approximately 20 cm anterior knee wound with complete dehiscence from proximal to distal aspect of the skin incision only no deep penetration was noted I attest to the content of the Intraoperative Record and any orders documented therein. Any exceptions are noted below.
--- NOTE | 2018-10-16 18:57 | Anesthesiology Progress Note ---
Date of Service October 16, 2018 Anesthesia Post Procedure Vital Signs Vital Signs: Temp Pulse Pulse Pulse Resp BP BP 10/16/18 18:36 83 21 143/77 H 10/16/18 18:35 83 19 10/16/18 18:31 84 19 137/80 10/16/18 18:30 82 17 10/16/18 18:26 82 20 114/71 10/16/18 18:24 81 17 10/16/18 18:22 81 18 129/82 10/16/18 18:20 81 19 10/16/18 18:16 80 20 116/62 10/16/18 18:15 79 20 10/16/18 18:11 79 16 108/68 10/16/18 18:06 78 18 114/65 10/16/18 18:05 78 17 10/16/18 18:01 77 15 106/62 10/16/18 18:00 77 19 10/16/18 17:56 76 18 108/52 L 10/16/18 17:51 75 18 121/54 L 10/16/18 17:50 75 20 10/16/18 17:47 75 21 95/50 L 10/16/18 17:46 37.5 C 76 75 19 95/50 L 10/16/18 16:18 36.9 C 87 18 160/84 H 10/16/18 15:55 36.9 C 82 18 170/96 H Pulse Ox 10/16/18 18:36 96 10/16/18 18:35 92 10/16/18 18:31 93 10/16/18 18:30 99 10/16/18 18:26 96 10/16/18 18:24 97 10/16/18 18:22 96 10/16/18 18:20 92 10/16/18 18:16 91 10/16/18 18:15 99 10/16/18 18:11 96 10/16/18 18:06 92 10/16/18 18:05 96 10/16/18 18:01 10/16/18 18:00 100 10/16/18 17:56 99 10/16/18 17:51 99 10/16/18 17:50 100 10/16/18 17:47 99 10/16/18 17:46 95 10/16/18 16:18 94 10/16/18 15:55 93 Pain Intensity Right Knee: Pain Intensity: 0 Transfer of Care Handoff Completed per policy Notes Mental Status: alert / awake / arousable Patient Amnestic to Procedure: Yes Nausea / Vomiting: adequately controlled Pain: adequately controlled Airway Patency, RR, SpO2: stable & adequate BP & HR: stable & adequate Hydration State: stable & adequate Neuraxial Anesthesia: was administered and sensory block is resolving Anesthetic Complications: no major complications apparent and Pt Satisfied with anesthetic care Notes: The patient is awake and comfortable. Her vital signs are stable.
[2018-10-16] MEDS ORDERED: NALOXONE HCL 0.4 MG/1 ML VIAL/CARP IV PRN (19:18)
[2018-10-16] MEDS ORDERED: OXYCODONE HCL IR 5 MG TAB (IMMEDIATE RELEASE) PO PRN (19:18)
[2018-10-16] MEDS ORDERED: BISACODYL 10 MG SUPP PR PRN (19:18)
[2018-10-16] MEDS ORDERED: MAGNESIUM HYDROXIDE SUSP 30 ML UDC PO PRN (19:18)
[2018-10-16] MEDS ORDERED: HYDROmorphone INJ 1 MG/ML SYRINGE IV PRN (19:18)
[2018-10-16] MEDS ORDERED: METOCLOPRAMIDE HCL INJ 5 MG/ML 2 ML VIAL IV PRN (19:18)
--- NOTE | 2018-10-16 19:39 | XRay Report ---
XR knee RT 2V routine HISTORY: 78 years-old Female Surgical Post Op right knee total joint arthroplasty. History of degene rative joint disease. COMPARISON: Right knee radiographs 09/26/2018 TECHNIQUE: 2 views of the right knee FINDINGS: Right knee total joint arthroplasty and patella resurfacing demonstrates satisfactory alignment. Ante rior midline skin edwin are noted along with expected postsurgical soft tissue swelling and deep ti ssue air. Surgical drainage catheter is noted. No acute fracture or retained foreign body. IMPRESSION: Right knee total joint arthroplasty and patella resurfacing demonstrates satisfactory ali gnment. The above report was generated using voice recognition software. It may contain grammatical, syntax o r spelling errors. Electronically signed by: Jaya Ya M.D. 10/16/2018 7:37 PM
[2018-10-16] MEDS ORDERED: ROPINIROLE HCL 1 MG TABLET PO SCH (21:00)
[2018-10-16] MEDS ORDERED: FOLIC ACID 1 MG TAB PO SCH (21:00)
[2018-10-16] MEDS ORDERED: CALCIUM CARBONATE 1250MG TAB PO SCH (21:00)
[2018-10-16] MEDS ORDERED: POLYETHYLENE (MIRALAX) 17 GM PACK PO SCH (21:00)
[2018-10-16] MEDS ORDERED: SENNA 8.6 MG TAB PO SCH (21:00)
[2018-10-16] MEDS ORDERED: SIMVASTATIN 20 MG TAB PO SCH (21:00)
[2018-10-16] MEDS: KETOROLAC TROMETHAMINE 15 MG/ML VIAL IV SCH (21:34)
[2018-10-16] MEDS: CARVEDILOL 3.125 MG TAB PO SCH (21:35)
[2018-10-16] MEDS: DOCUSATE SODIUM 100 MG CAP PO SCH (21:35)
[2018-10-16] MEDS: ACETAMINOPHEN 500 MG TAB PO SCH (21:36)
[2018-10-16] MEDS: ASPIRIN 81 MG ECTAB PO SCH (21:37)
[2018-10-16] MEDS: SODIUM CHLORIDE 1 GM TABLET PO SCH (21:40)
[2018-10-17] MEDS: CEFAZOLIN 2000MG 2,000 MG/15 ML SYR IV SCH ×2 (00:04→08:21)
[2018-10-17] MEDS: KETOROLAC TROMETHAMINE 15 MG/ML VIAL IV SCH ×2 (02:21→08:20)
[2018-10-17] MEDS: ACETAMINOPHEN 500 MG TAB PO SCH (05:30)
[2018-10-17 06:44] LABS: Hematocrit (blood only) 28.4 % (37-47); Hemoglobin 9.2 g/dL (12.0-16.0); Mean Corpuscular Hgb Conc 32.4 g/dL (32-36); Mean Corpuscular Volume 101.1 fL (80-100); Mean Platelet Volume 8.9 fL (7.4-10.4); Platelet Count 425 K/uL (130-400); RDW Coefficient of Variation 14.2 % (11.5-14.5); Red Blood Count 2.81 M/uL (4.2-5.4); White Blood Count 5.74 K/uL (4.8-10.8)
[2018-10-17 07:17] LABS: Calcium 8.5 mg/dl (8.5-10.1); Creatinine Clr Calc Pharmacy 89.3 ml/min; Est GFR (African American) 89.7; Est GFR (Non-African American) 77.4; Potassium 3.8 mmol/L (3.5-5.1)
--- NOTE | 2018-10-17 07:20 | Orthopedic Progress Note ---
Date of Service October 17, 2018 Assessment & Plan (1) Wound dehiscence: POD #1 s/p I&D wound lavage with superficial closure right total knee wound d/c home today with prevena, knee immobilizer x 1 week when ambulating Subjective POD #1 s/p I&D wound lavage with superficial closure right total knee wound denies CP/SOB denies Fever/Chills pain currently 08/27 Review of Systems Review of Systems: All systems reviewed & are unremarkable except as noted in HPI & below Physical Exam Constitutional: WD/WN, vitals as above no acute distress Musculoskeletal: NVDI, calf SNT, negative graciela sign. DP palpable, able to wi ggle toes/ankle movement without difficulty. prevena dressing clean dry and intact. Results & Data Vital Signs (Past 12 Hours) Vital Signs Temp Pulse Pulse Pulse Resp BP BP 10/17/18 06:44 36.8 C 76 18 147/77 H 10/17/18 02:31 36.6 C 83 16 139/78 10/16/18 22:51 37.0 C 81 18 149/82 H 10/16/18 21:19 84 17 159/87 H 10/16/18 20:19 88 18 165/90 H 10/16/18 19:50 36.6 C 88 20 162/84 H 10/16/18 19:20 37.2 C 90 22 168/83 H Pulse Ox 10/17/18 06:44 94 10/17/18 02:31 93 10/16/18 22:51 94 10/16/18 21:19 100 10/16/18 20:19 96 10/16/18 19:50 94 10/16/18 19:20 95
[2018-10-17] MEDS: CARVEDILOL 3.125 MG TAB PO SCH (08:26)
[2018-10-17] MEDS: DOCUSATE SODIUM 100 MG CAP PO SCH (08:26)
[2018-10-17] MEDS: ASPIRIN 81 MG ECTAB PO SCH (08:26)
[2018-10-17] MEDS: SODIUM CHLORIDE 1 GM TABLET PO SCH (08:27)
[2018-10-17] MEDS ORDERED: AMLODIPINE BESYLATE 5 MG TAB PO SCH (09:00)
[2018-10-17] MEDS ORDERED: MULTIVITAMIN TAB PO SCH (09:00)
[2018-10-17] MEDS ORDERED: ASCORBIC ACID 500 MG TAB PO SCH (09:00)
[2018-10-17] MEDS ORDERED: ENALAPRIL MALEATE 10 MG TAB PO SCH (09:00)
[2018-10-17] MEDS ORDERED: POTASSIUM CHLORIDE 10 MEQ TABCR PO SCH (09:00)
[2018-10-17] MEDS ORDERED: FERROUS SULFATE 325 MG TAB PO SCH (21:00)
--- NOTE | 2018-10-18 07:47 | Discharge Summary ---
Date of Service Date of Dischage: 10/17/18 Date of Admission: 10/16/18 Admission HPI Per Admitting Provider Is a 78-year-old female known to our practice who is status post right total knee arthroplasty approximately 3 weeks out. Is doing well. This morning she was dressed and ready for her physical therapist to come to the house. She was changing her position in a chair and ended up falling forward and onto her right knee in a flexed position. She had immediate pain in the knee and stated that it was bleeding quite a bit. She had help getting to [facility] emergency room in [place]. She states she had no loss of consciousness. She denied lightheadedness, dizziness, chest pain or shortness of breath prior to or after the fall. She did not hit her head. Dr. Herring was called and had the patient transferred up to [facility] to take care of her right knee wound dehiscence. Other than being upset over her accident, the patient is currently stable. Of note, her last day, she was hyponatremic. She states that she found out just recently that her latest sodium was 136. She is now admitted for further care for her right knee wound dehiscence. Principal Diagnosis right knee wound dehiscence Discharge Exam Constitutional WD/WN, vitals as above no acute distress Musculoskeletal right lower extremity NVDI, dressing clean and dry, prevena wound vac intact. calf SNT Discharge Data Allergies Allergy/AdvReac Type Severity Reaction Status Date / Time No Known Allergies Allergy Verified 09/26/18 06:13 Consultations 10/16/18 19:18 Consult Case Management - Discharge Planning Routine Procedures Performed Operation Date: 10/16/18 16:20 Actual Procedures p Right Incision and Drainage Wound Dehissence closure(Right) - Pieter Herring DO Hospital Course (1) Wound dehiscence: POD #1 s/p I&D wound lavage with superficial closure right total knee wound d/c home today with prevena, knee immobilizer x 1 week when ambulating Patient was a same day admission after undergoing I&D and wound closure of her right knee after sustaining a fall and splitting her incision open, she was approximately 3 weeks post TKA. She tolerated the procedure well. Post- operatively, she has remained stable and pain is well controlled. Please refer to daily progress notes for complete details. After exam on 10/17/18, patient felt to be stable for discharge home with HHPT. Patient will f/u in the office in 2 weeks for further evaluation including x-rays and incision check, sooner if having any issues or concerns. Below are pertinent labs/studies during their hospital stay: Laboratory Results WBC 5.74 K/uL (4.8-10.8) 10/17/18 06:04 RBC 2.81 M/uL (4.2-5.4) L 10/17/18 06:04 Hgb 9.2 g/dL (12.0-16.0) L 10/17/18 06:04 Hct 28.4 % (37-47) L 10/17/18 06:04 MCV 101.1 fL (80-100) H 10/17/18 06:04 MCH 32.7 pg (25-34) 10/17/18 06:04 MCHC 32.4 g/dL (32-36) 10/17/18 06:04 RDW Std Deviation 52.0 fL (36.4-46.3) H 10/17/18 06:04 RDW Coeff of Prabhakar 14.2 % (11.5-14.5) 10/17/18 06:04 Plt Count 425 K/uL (130-400) H 10/17/18 06:04 MPV 8.9 fL (7.4-10.4) 10/17/18 06:04 Immature Gran % (Auto) 0.2 % 10/16/18 15:53 Neut % (Auto) 63.0 % 10/16/18 15:53 Lymph % (Auto) 20.9 % 10/16/18 15:53 Hubbard % (Auto) 13.2 % 10/16/18 15:53 Eos % (Auto) 2.3 % 10/16/18 15:53 Baso % (Auto) 0.4 % 10/16/18 15:53 Immature Gran # (Auto) 0.01 K/uL (0.00-0.02) 10/16/18 15:53 Neut # (Auto) 3.26 K/uL (1.4-6.5) 10/16/18 15:53 Lymph # (Auto) 1.08 K/uL (1.2-3.4) L 10/16/18 15:53 Hubbard # (Auto) 0.68 K/uL (0.11-0.59) H 10/16/18 15:53 Eos # (Auto) 0.12 K/uL (0-0.5) 10/16/18 15:53 Baso # (Auto) 0.02 K/uL (0-0.2) 10/16/18 15:53 Sodium 135 mmol/L (136-145) L 10/17/18 06:04 Potassium 3.8 mmol/L (3.5-5.1) 10/17/18 06:04 Chloride 101 mmol/L (98-107) 10/17/18 06:04 Carbon Dioxide 31 mmol/L (21-32) 10/17/18 06:04 Anion Gap 3.0 (3-11) 10/17/18 06:04 BUN 9 mg/dl (7-18) 10/17/18 06:04 Creatinine 0.75 mg/dl (0.6-1.2) 10/17/18 06:04 Est Cr Clr Drug Dosing 89.3 ml/min 10/17/18 06:04 Est GFR ( Amer) 89.7 10/17/18 06:04 Est GFR (Non-Af Amer) 77.4 10/17/18 06:04 BUN/Creatinine Ratio 12.0 (10-20) 10/17/18 06:04 Glucose 107 mg/dl (70-99) H 10/17/18 06:04 Calcium 8.5 mg/dl (8.5-10.1) 10/17/18 06:04 Blood Type B Positive 10/16/18 15:53 Antibody Screen NEGATIVE 10/16/18 15:53 Total Time Total Time Spent Total Time Spent (In Minutes): 20 Total Time Includes: Examination of the Patient, Discharge Planning and Medication Reconciliation Discharge Plan Discharge Items Patient Disposition: Home - Home Health Services Reason For Visit: WOUND DEHISCENCE R KNEE FROM SURGERY Discharge Diagnosis: s/p I&D wound lavage with superficial closure right total knee wound Condition: Good Discharge Goals: Decrease discomfort, Improve function and Increase independence Activity: Per 'Additional Instructions' section Lifting: Wait until after follow-up appointment Weightbearing: Right weightbearing Weightbearing Comment: WBAT with walker Non-emergency contact: Primary Care Provider and Surgeon Call non-emergency contact if: you have any medication questions, your temperature is above 101, your wound has increased redness, your wound has increased drainage and your wound pain has increased Follow-up/Referrals: Zoe Logan D.O. [Primary Care Provider] - Diet: Regular Addtl Provider Instructions: ACTIVITY RECOMMENDATIONS: SELF CARE INSTRUCTIONS AFTER TOTAL KNEE REPLACEMENT A. You may need to continue a physical therapy program after discharge from the hospital. There are several options available to you. Your doctor will assist you in selecting the best one for you. 1. An out-patient facility 2 to 3 times a week for therapy or home therapy. 2. Continue working on all exercises taught to you in the hospital. Your goals should be to increase bending of your knee to 90 degrees and beyond and to fully straighten your knee. B. You may progress at your own pace from walking with a walker or crutches to a cane; then to no assistive devices. USE KNEE IMMOBILIZER WHILE AMBULATING. CAN REMOVE WHEN SITTING. C. Make walking a part of your daily routine. Be up as much as comfortable with rest periods throughout the day. Rest with leg elevation is very important. Use the ice wrap frequently for the first 3-4 weeks. D. There are no restrictions on activities. You may ride in a car, shop, participate in wire threader and all social activities. E. Wear the long elastic stockings (JAELYN hose) 20 hours a day for 2 weeks after surgery. They can be removed several times a day for laundering and for a bath. F. You may shower, no tub baths until cleared by your doctor. SPECIAL CARE INSTRUCTIONS: VERY IMPORTANT TO READ AND REVIEW A. There are a few signs you need to watch for after you are home. Call [facility] if you notice any of the followin. Increased severe knee pain. Some pain is expected especially when you exercise. 2. Increased swelling in your leg or knee; pain or swelling of the calf muscle in either lower leg. 3. Any fluid drainage from the incision. 4. Shortness of breath or chest pain. B. Please call [facility] at if you have any concerns or questions about your operation or recovery. The doctor or his nurse will return your call promptly. C. You must take antibiotics before dental work, bladder, bowel or other surgery. Your doctor will provide you with a permanent care to carry describing this precaution. IMPORTANT: * REMEMBER TO TAKE ASPIRIN, 81 MG, TWICE DAILY FOR 4 WEEKS UNLESS OTHERWISE DIRECTED. THIS IS YOUR BLOOD THINNER. * HIGH RISK PATIENTS MAY BE PRESCRIBED A STRONGER BLOOD THINNER. THIS WILL BE PROVIDED AT DISCHARGE. * CALL IF INCREASED PAIN, REDNESS, DRAINAGE OR FEVER GREATER THAT 101. * WEAR JAELYN HOSE 20 HOURS PER DAY FOR 2 WEEKS. * Prevena- This is a large suction dressing covering your incision. This will help pull any excess drainage from the wound and allow your incision to heal properly. You may shower with this if you can keep the unit outside of the shower. If any bleeding or leakage is noted please call your doctor's office. This will remain on your incision for 7 days and then should be removed. This can be done yourself or by the home nursing staff if applicable. The entire unit is disposable once removed. Once removed, keep incision clean and dry. If redness or drainage is noted, please call your surgeon. CALL THE OFFICE . FOLLOW UP VISIT: If appointment is not already scheduled: Please call [facility] to make a follow-up appointment for 2 weeks after your surgery at . Prescriptions: New acetaminophen [Pain Reliever] 500 mg Tablet 1,000 mg PO Q8 14 Days Qty: 84 RF: 0 oxycodone 5 mg Tablet 5 mg PO Q4H PRN (Reason: pain) Qty: 30 RF: 0 docusate sodium 100 mg Capsule 100 mg PO BID 10 Days Qty: 20 RF: 0 cefadroxil 500 mg capsule 500 mg PO BID 14 Days Qty: 28 RF: 0 Continued furosemide 40 mg Tablet 40 mg PO QAM RF: 0 polyethylene glycol 3350 [Miralax] 17 gram Powder In Packet 17 g PO HS RF: 0 clonazepam 0.5 mg Tablet 0.5 mg PO DAILY PRN (Reason: Anxiety) RF: 0 amlodipine 2.5 mg Tablet 2.5 mg PO QAM RF: 0 potassium chloride [Klor-Con 10] 10 mEq Tablet Extended Release 10 meq PO QAM RF: 0 carvedilol 3.125 mg Tablet 3.125 mg PO BID RF: 0 calcium carbonate [Calcium 500] 500 mg calcium (1,250 mg) Tablet 500 mg PO HS RF: 0 ascorbic acid (vitamin C) [Vitamin C] 500 mg Tablet 500 mg PO QAM RF: 0 pantoprazole 40 mg Tablet,Delayed Release (Dr/Ec) 40 mg PO QAM RF: 0 simvastatin 20 mg Tablet 20 mg PO PM RF: 0 ropinirole [Requip] 0.5 mg Tablet 2 mg PO HS RF: 0 benazepril 20 mg Tablet 20 mg PO QAM RF: 0 folic acid 1 mg Tablet 2 mg PO QPM RF: 0 ranitidine HCl 150 mg Capsule 150 mg PO HS PRN (Reason: Heartburn) RF: 0 duloxetine 30 mg Capsule,Delayed Release(Dr/Ec) 30 mg PO QAM RF: 0 cholecalciferol (vitamin D3) [Vitamin D3] 2,000 unit Capsule 2,000 unit PO QAM RF: 0 Slow Fe 142 mg (45 mg iron) Tablet Extended Release 142 mg PO Q OTHER DAY RF: 0 Adult Multivitamin Gummies 200 mcg Tablet,Chewable 1 dose PO QPM RF: 0 aspirin [Ecotrin Low Strength] 81 mg Tablet,Delayed Release (Dr/Ec) 81 mg PO BID 30 Days Qty: 60 RF: 0 sodium chloride 1 gram tablet 1,000 mg PO BID Qty: 14 RF: 0 Stand-Alone Forms: [facility]/Other Patient Handouts: Hyponatremia Dc Discharge Orders: Discharge Order (Routine); Ordered 10/17/18 Ordered By: Lemuel Rosales Admission Data Admit Date/Time: 10/16/18 15:06 Attending Provider: Pieter Herring Admit Provider: Pieter Herring Primary Care Provider: Zoe Logan Service: Surgical Services Other Interventions: Discharge Summary Assessment (RN) Last Done: 10/17/18 11:48 DC Date/Time DO NOT enter until pt leaves facility: 10/17/18 13:12
== END 2018-10-17 13:12 | disposition home health service (06) | DRG 920 ==
LOC: 3W 15:06

== ENCOUNTER 2018-12-25 14:41 | Inpatient (IN) ==
[2018-12-25] MEDS ORDERED: ALUMINUM/MAGNESIUM SUSP 30 ML UDC PO PRN (14:50)
[2018-12-25] MEDS ORDERED: VANCOMYCIN CONSULT ACTIVE PRN ×2 (14:58)
[2018-12-25] MEDS ORDERED: VANCOMYCIN HCL 1,000 MG in SODIUM CHLORIDE 0.9% 250 ML IV SCH (15:00)
--- NOTE | 2018-12-25 15:17 | History & Physical Report ---
Date of Service December 25, 2018 date of surgery: 12-26-18 Assessment & Plan (1) Wound dehiscence: presents with increased drainage of her right knee wound, culture positive for MRSA, has been on PO Bactrim, sustained a wound dehiscence in September and required I&D prior to this, will direct admit patient, IV antibiotics start on Vancomycin, ID Consult, NPO after OR tonight for I&D possible poly change with dr villatoro tomorrow at [facility]. History of Present Illness Chief Complaint: right knee wound drainage Primary Care Provider: Zoe Logan Ms Melgar is a 78 year old female who is here for a follow up of right knee wound check, she was seen 10 days ago and cultures were obtained which revealed MRSA positive. since that time she has been on Bactrim DS, presents today for recheck. she states that it is unchanged, she denies fever or chills. she reports the drainage has increased over the past 5-6 days. Currently the patient states that the symptoms are moderate. Patient has had previous TKA. 2 weeks post op, she slipped and fell and had a wound dehiscence. on 10-16-18 Dr. Villatoro performed I & D superficial wound dehiscence. Allergies Allergy/AdvReac Type Severity Reaction Status Date / Time No Known Allergies Allergy Verified 09/26/18 06:13 Home Medications Home Medications Medication Instructions Recorded Confirmed Type Adult Multivitamin Gummies 1 dose PO QPM 09/04/18 10/16/18 History Slow Fe 142 mg PO Q OTHER DAY 09/04/18 10/16/18 History amlodipine 2.5 mg PO QAM 09/04/18 10/16/18 History ascorbic acid (vitamin C) [Vitamin 500 mg PO QAM 09/04/18 10/16/18 History C] benazepril 20 mg PO QAM 09/04/18 10/16/18 History calcium carbonate [Calcium 500] 500 mg PO HS 09/04/18 10/16/18 History carvedilol 3.125 mg PO BID 09/04/18 10/16/18 History cholecalciferol (vitamin D3) 2,000 unit PO QAM 09/04/18 09/26/18 History [Vitamin D3] clonazepam 0.5 mg PO DAILY PRN 09/04/18 09/26/18 History duloxetine 30 mg PO QAM 09/04/18 09/26/18 History folic acid 2 mg PO QPM 09/04/18 10/16/18 History furosemide 40 mg PO QAM 09/04/18 10/16/18 History pantoprazole 40 mg PO QAM 09/04/18 10/16/18 History polyethylene glycol 3350 [Miralax] 17 g PO HS 09/04/18 10/16/18 History potassium chloride [Klor-Con 10] 10 meq PO QAM 09/04/18 10/16/18 History ranitidine HCl 150 mg PO HS PRN 09/04/18 10/16/18 History ropinirole [Requip] 2 mg PO HS 09/04/18 10/16/18 History simvastatin 20 mg PO PM 09/04/18 10/16/18 History sodium chloride 1,000 mg PO BID #14 tab 10/01/18 10/16/18 Rx oxycodone 5 mg PO Q4H PRN #30 tab 10/17/18 Rx Past Med/Surg History Medical History AAA (abdominal aortic aneurysm) PCP MONITORING Anxiety Cardiomegaly Chronic constipation GERD (gastroesophageal reflux disease) Glaucoma RT EYE Hiatal hernia History of benign breast biopsy History of migraine History of recent steroid use RECENTLY PRESCRIBED PREDNISONE FOR RA x 3 WEEKS. LAST DOSE 08/28/18 History of squamous cell carcinoma Hyperlipidemia Hypertension Mitral regurgitation Mild to Moderate Osteoarthritis Pulmonary hypertension Moderate (Pulmonary Artery Systolic Pressure - 52-57 mmHg) Raynaud's disease Restless leg syndrome Rheumatoid arthritis Sleep apnea DOES NOT TOLERATE CPAP Tricuspid regurgitation Moderate Surgical History History of cardiac cath 2016 - [facility] - NO STENTS/ANGIOPLASTY History of colonoscopy History of esophagogastroduodenoscopy (EGD) History of eye surgery RT EYE X 2 - LASER SECONDARY TO GLAUCOMA History of foot surgery RT History of squamous cell carcinoma excision History of total knee replacement LEFT Status post total right knee replacement Family History Mother Family history of diabetes mellitus Social History Preferred Language: Iraqi Communication Ability: Effective Beliefs That Will Affect Care: None and Jain Jain Beliefs: Church Current Living Situation: Family Current Living Situation Comment: lives with sister Batsheva Feels Safe at Home: Yes Smoking Status: Never smoker Second Hand Exposure: No Hx Alcohol Use: No Hx Substance Use: No Review of Systems Review of Systems: All systems reviewed & are unremarkable except as noted in HPI & below Constitutional: no fever, no chills and no sweats Respiratory: no cough and no dyspnea Cardiovascular: no chest pain, no dyspnea and no orthopnea Gastrointestinal: no abdominal pain, no nausea and no vomiting Musculoskeletal: as per Subjective / HPI Physical Exam Physical Exam: Ht: 60 in wt: 291 lb BP: 146/86 pulse: 78 Constitutional: WD/WN, vitals as above no acute distress Respiratory: normal respiratory effort, lungs clear to auscultation no respiratory distress, no labored breathing and does not use accessory muscles Cardiovascular: RRR, no murmur, no edema Gastrointestinal (Abdomen): normal bowel sounds, soft, nontender, no hepatosplenomegaly Musculoskeletal: Right knee: area approximately 2mm in diameter has continuous drainage serous fluid, no pain with passive/active ROM, mild suprapatellar effusion, knee stable to valgus/varus stress, able to perform straight leg raise, calf SNT, NVDI. Results & Data Laboratory Results right knee wound culture from 12/12/18 clevelanding MRSA, sensitive to Vancomycin 1 sensitive, Daptomycin 0.25 sensitive, Bactrim <=10 sensitive
[2018-12-25] MEDS ORDERED: PATIENT'S HEIGHT AND/OR WEIGHT NEEDED SCH (16:45)
[2018-12-25 17:14] LABS: Basophils # (auto) 0.04 K/uL (0-0.2); Basophils % (auto) 0.8 %; Eosinophils # (auto) 0.21 K/uL (0-0.5); Eosinophils % (auto) 4.3 %; Hemoglobin 12.5 g/dL (12.0-16.0); Immature Granulocytes # (auto) 0.01 K/uL (0.00-0.02); Immature Granulocytes % (auto) 0.2 %; Lymphocytes # (auto) 1.05 K/uL (1.2-3.4); Lymphocytes % (auto) 21.5 %; Mean Corpuscular Hgb Conc 32.1 g/dL (32-36); Mean Corpuscular Volume 93.5 fL (80-100); Mean Platelet Volume 9.3 fL (7.4-10.4); Monocytes % (auto) 10.2 %; Neutrophils # (auto) 3.07 K/uL (1.4-6.5); Platelet Count 254 K/uL (130-400); RDW Coefficient of Variation 14.6 % (11.5-14.5); RDW Standard Deviation 49.4 fL (36.4-46.3); Red Blood Count 4.17 M/uL (4.2-5.4); White Blood Count 4.88 K/uL (4.8-10.8)
[2018-12-25 17:25] LABS: Partial Thromboplastin Time 27.4 Seconds (21.0-31.0); Prothrombin Time 10.5 Seconds (9.0-12.0)
[2018-12-25 17:30] LABS: BUN Creatinine Ratio 12.3 (10-20); Calcium 9.1 mg/dl (8.5-10.1); Creatinine Clr Calc Pharmacy 72.6 ml/min; Est GFR (Non-African American) 63.8; Potassium 3.7 mmol/L (3.5-5.1)
[2018-12-25] MEDS ORDERED: VANCOMYCIN HCL 2,750 MG in SODIUM CHLORIDE 0.9% 500 ML IV SCH (18:00)
--- NOTE | 2018-12-25 18:27 | Pharmacy Report ---
Pharmacy Abx Initial Consult - Date of Service December 25, 2018 - Pharmacy Dosing Scope Date of Consult: 12/25/18 Consultation requested by: Dr. Rosales Pharmacy is consulted to initiate Vancomycin IV dosing therapy, order appropriate labs and adjust drug dose/frequency. - Subjective The patient is a 78 year old F admitted on 12/25/18 16:14. - Objective Height: 5 ft 6 in Weight: 122.5 kg (BMI 43.6) Vital Signs (Past 12hrs): Vital Signs Temp Resp BP 12/25/18 16:57 36.9 C 14 137/77 12/25/18 16:56 36.9 C 14 137/77 Lab Results (24hrs): Laboratory Tests (24 Hours) 12/25/18 12/25/18 17:07 17:07 WBC 4.88 Neut # (Auto) 3.07 Creatinine 0.88 Est Cr Clr Drug Dosing 72.6 - Risk Factors for Resistance * Antimicrobial use within the last 90 days: Bactrim - Assessment & Plan Assessment 78 year old F admitted with increased drainage of right knee wound. Patient was seen 10 days ago and cultures were obtained which were positive for MRSA. Has been on Bactrim DS. Drainage has increased over the past 5-6 days. Will start on Vancomycin. Infectious disease to be consulted. Patient possibly to OR tomorrow for I&D of right knee. PMH: Patient had right knee replacement at [facility] 09-26-18. Three weeks post op she was changing positions in a chair and fell forward onto her right knee in a flexed position. Had immediate pain in the knee and patient stated that it was bleeding quite a bit. Had wound dehiscense on that admission Plan Vancomcyin for treatment of right knee infection Vancomycin IV * Estimated PK Parameters: Vd 0.54 L/kg, Abbe 0.065 hr-1, t1/2 10.7 hr * Loading dose: 2750 mg (22.4 mg/kg) * Maintenance dose: 1750 mg IV (14.3 mg/kg) every 12 hours * Goal trough level : 15 to 20 mcg/mL * Trough ordered for 12/27/18 @0530 * Will check trough with 4th dose. This will be prior to steady state, but want to check earlier due to patient potential for accumulation Pharmacy will continue to follow and will adjust dose/frequency as necessary. Thank you.
[2018-12-26] MEDS: VANCOMYCIN HCL 1,750 MG in SODIUM CHLORIDE 0.9% 500 ML IV SCH ×3 (05:41→19:00)
[2018-12-26] MEDS ORDERED: SODIUM CHLORIDE 0.9% 1000ML 1,000 ML IV SCH (06:00)
[2018-12-26] MEDS ORDERED: CARVEDILOL 3.125 MG TAB PO ONE (09:45)
--- NOTE | 2018-12-26 10:35 | Infectious Disease Consult ---
Date of Consultation December 26, 2018 Assessment & Plan (1) Postoperative infection of knee: Patient with right knee infection following knee replacement surgery, with cultures positive for MRSA. Await operative findings, will continue vancomycin for now. Suspect she will need prolonged IV antibiotics, and await final culture results for confirmation of sensitivities. Will follow. (2) MRSA (methicillin resistant Staphylococcus aureus) infection: History of Present Illness Reason for Consultation: MRSA wound dehiscence Attending Physician: Pieter Herring DO History of Present Illness 78-year-old female with history hypertension, hyperlipidemia, rheumatoid arthritis, pulmonary hypertension who is status post right knee replacement October 16, 2017. She subsequently suffered a fall with opening of the wound with bleeding requiring recent stapling of the wound. She then presented with drainage from the wound with erythema and mild pain and was found to have evidence of wound dehiscence with positive cultures for MRSA. She has been started empirically on vancomycin, and is awaiting OR for debridement and p robable poly-exchange. She does not report any significant fever or chills. She is tolerating her antibiotics so far. Pain currently 3 out of 10 in intensity right knee. Allergies Allergy/AdvReac Type Severity Reaction Status Date / Time No Known Allergies Allergy Verified 09/26/18 06:13 Home Medications Home Medications Medication Instructions Recorded Confirmed Type Adult Multivitamin Gummies 1 dose PO QPM 09/04/18 12/25/18 History Slow Fe 142 mg PO Q OTHER DAY 09/04/18 12/25/18 History amlodipine 2.5 mg PO QAM 09/04/18 12/25/18 History benazepril 20 mg PO QAM 09/04/18 12/25/18 History carvedilol 3.125 mg PO BID 09/04/18 12/25/18 History cholecalciferol (vitamin D3) 2,000 unit PO QAM 09/04/18 12/25/18 History [Vitamin D3] clonazepam 0.5 mg PO DAILY PRN 09/04/18 12/25/18 History duloxetine 30 mg PO QAM 09/04/18 12/25/18 History furosemide 40 mg PO QAM 09/04/18 12/25/18 History pantoprazole 40 mg PO QPM 09/04/18 12/25/18 History polyethylene glycol 3350 [Miralax] 17 g PO HS 09/04/18 12/25/18 History potassium chloride [Klor-Con 10] 10 meq PO QAM 09/04/18 12/25/18 History ranitidine HCl 150 mg PO HS PRN 09/04/18 12/25/18 History ropinirole [Requip] 2 mg PO HS 09/04/18 12/25/18 History simvastatin 20 mg PO PM 09/04/18 12/25/18 History sodium chloride 1,000 mg PO BID #14 tab 10/01/18 12/25/18 Rx oxycodone 5 mg PO Q4H PRN #30 tab 10/17/18 12/25/18 Rx Patient History Medical History AAA (abdominal aortic aneurysm) PCP MONITORING Anxiety Cardiomegaly Chronic constipation GERD (gastroesophageal reflux disease) Glaucoma RT EYE Hiatal hernia History of benign breast biopsy History of migraine History of recent steroid use RECENTLY PRESCRIBED PREDNISONE FOR RA x 3 WEEKS. LAST DOSE 08/28/18 History of squamous cell carcinoma Hyperlipidemia Hypertension Mitral regurgitation Mild to Moderate Osteoarthritis Pulmonary hypertension Moderate (Pulmonary Artery Systolic Pressure - 52-57 mmHg) Raynaud's disease Restless leg syndrome Rheumatoid arthritis Sleep apnea DOES NOT TOLERATE CPAP Tricuspid regurgitation Moderate Surgical History History of cardiac cath 2016 - [facility] - NO STENTS/ANGIOPLASTY History of colonoscopy History of esophagogastroduodenoscopy (EGD) History of eye surgery RT EYE X 2 - LASER SECONDARY TO GLAUCOMA History of foot surgery RT History of squamous cell carcinoma excision History of total knee replacement LEFT Status post total right knee replacement Family History Mother Family history of diabetes mellitus Social History Preferred Language: Divehi Communication Ability: Effective Beliefs That Will Affect Care: None Current Living Situation: Family Current Living Situation Comment: with sister Other Information That Helps Us Care for You: No Feels Safe at Home: Yes Safety Concerns: Feels Safe At This Time Smoking Status: Never smoker Second Hand Exposure: No Hx Alcohol Use: No Hx Substance Use: No Review of Systems Review of Systems: All systems reviewed & are unremarkable except as noted in HPI & below Physical Exam Constitutional: WD/WN, vitals as above comfortable; no acute distress Eyes: PERRL, conjunctivae normal, anicteric sclerae ENMT: external ear and nose normal, oropharynx normal Neck: trachea midline, no thyromegaly neck nontender Respiratory: normal respiratory effort, lungs clear to auscultation normal percussion; does not use accessory muscles Cardiovascular: Rate/Rhythm: regular rate and regular rhythm Heart Sounds: normal S1 and normal S2; no gallop, no murmur and no cardiac rub Vessels: normal peripheral pulses; no JVD Gastrointestinal (Abdomen): normal bowel sounds, soft, nontender, no hepatosplenomegaly Musculoskeletal: no cyanosis or clubbing, extremities motor strength 5/5 Spine: thoracic spine normal to inspection and lumbar spine normal to inspection; no cervical spinal tenderness Skin: normal turgor and + wound (Right knee wound with areas of seropurulent drainage, mild erythema); no rashes Neurologic: patellar DTR's 2+ bilat, sensation intact no focal motor deficits Psychiatric: A+Ox3, euthymic affect Orientation: cooperative Lymphatic: no cervical or axillary lymphadenopathy no inguinal lympha denopathy Results & Data Vital Signs (Past 12 Hours) Vital Signs Temp Pulse Resp BP Pulse Ox 12/26/18 07:29 36.6 C 76 18 179/82 H 95 12/25/18 23:08 36.6 C 72 16 150/79 H 92 Laboratory Results Short CBC 12/25/18 Range/Units 17:07 WBC 4.88 (4.8-10.8) K/uL Hgb 12.5 (12.0-16.0) g/dL Hct 39.0 (37-47) % Plt Count 254 (130-400) K/uL BMP 12/25/18 17:07 Sodium 137 Potassium 3.7 Chloride 103 Carbon Dioxide 28 BUN 11 Creatinine 0.88 Glucose 112 H Calcium 9.1
--- NOTE | 2018-12-26 14:20 | History & Physical Bridge Note ---
Date of Service December 26, 2018 History & Physical Bridge Note I have examined the patient, reviewed the History & Physical and in the interval since the performance of the History & Physical I have noted the following changes of clinical significance: no changes noted
[2018-12-26] MEDS ORDERED: MIDAZOLAM HCL 1 MG/ML 2ML VIAL ONE (14:31)
[2018-12-26] MEDS ORDERED: fentaNYL citrate 100 MCG/2 ML VIAL ONE (14:31)
[2018-12-26] MEDS ORDERED: ONDANSETRON INJ 2 MG/ML 2 ML VIAL ONE (14:32)
[2018-12-26] MEDS ORDERED: PROPOFOL IV EMULSION 10 MG/ML 20 ML VIAL IV ONE (14:32)
[2018-12-26] MEDS ORDERED: LIDOCAINE HCL 2% 2 ML VIAL/AMP(20MG/ML) INFIL ONE (14:32)
[2018-12-26] MEDS ORDERED: CeleBREX 200 MG CAP ONE (14:40)
[2018-12-26] MEDS ORDERED: FAMOTIDINE 20 MG TAB ONE (14:40)
[2018-12-26] MEDS ORDERED: GABAPENTIN 300 MG CAP ONE (14:40)
[2018-12-26] MEDS ORDERED: dexAMETHasone 4 MG TAB PO ONE (14:40)
[2018-12-26] MEDS ORDERED: ACETAMINOPHEN 500 MG TAB ONE (14:40)
[2018-12-26] MEDS ORDERED: METOCLOPRAMIDE HCL 10 MG TABLET ONE (14:40)
[2018-12-26] MEDS ORDERED: CEFAZOLIN 3000MG/72.5 ML BAG IV ONE (14:41)
--- NOTE | 2018-12-26 14:51 | Anesthesiology Consultation ---
Date of Service December 26, 2018 History Surgery Operation Date: 12/26/18 08:20 Proposed Procedures p Right Knee Incision and Drainage Status Post Total Knee, Possible Poly Exchange - Pieter Herring DO Height/Weight Height: 5 ft 6 in Weight: 122.5 kg (BMI 43.6) Allergies Allergy/AdvReac Type Severity Reaction Status Date / Time No Known Allergies Allergy Verified 09/26/18 06:13 Medications Home Medications Medication Instructions Recorded Confirmed Last Taken Adult Multivitamin Gummies 1 dose PO QPM 09/04/18 12/25/18 12/22/18 Slow Fe 142 mg PO Q OTHER DAY 09/04/18 12/25/18 12/24/18 amlodipine 2.5 mg PO QAM 09/04/18 12/25/18 12/25/18 2.5 mg benazepril 20 mg PO QAM 09/04/18 12/25/18 12/25/18 20 mg carvedilol 3.125 mg PO BID 09/04/18 12/25/18 12/25/18 08:00 cholecalciferol (vitamin D3) 2,000 unit PO QAM 09/04/18 12/25/18 12/24/18 [Vitamin D3] clonazepam 0.5 mg PO DAILY PRN 09/04/18 12/25/18 12/21/18 duloxetine 30 mg PO QAM 09/04/18 12/25/18 12/25/18 30mg furosemide 40 mg PO QAM 09/04/18 12/25/18 12/24/18 08:00 pantoprazole 40 mg PO QPM 09/04/18 12/25/18 12/24/18 16:00 polyethylene glycol 3350 [Miralax] 17 g PO HS 09/04/18 12/25/18 12/23/18 19:00 potassium chloride [Klor-Con 10] 10 meq PO QAM 09/04/18 12/25/18 12/25/18 0800 ranitidine HCl 150 mg PO HS PRN 09/04/18 12/25/18 09/26/18 04:00 ropinirole [Requip] 2 mg PO HS 09/04/18 12/25/18 12/24/18 19:00 simvastatin 20 mg PO PM 09/04/18 12/25/18 12/24/18 sodium chloride 1,000 mg PO BID #14 tab 10/01/18 12/25/18 1 Day Ago ~12/24/18 1900 oxycodone 5 mg PO Q4H PRN #30 tab 10/17/18 12/25/18 Unknown Active Medications Generic Name Dose Route Start Last Admin Trade Name Freq PRN Reason Stop Dose Admin Sodium Chloride 1,000 mls @ 15 mls/hr 12/26/18 06:00 12/26/18 05:43 Nss 1000ml IV 12/29/18 00:39 15 mls/hr .Q24H HIMA Administration Vancomycin HCl 1,750 mg/ 535 mls @ 200 mls/hr 12/26/18 06:00 12/26/18 05:42 Sodium Chloride IV 02/06/19 05:59 Infused Q12H HIMA Infusion NPO Date Last Intake of Fluids: 12/25/18 Time Last Intake of Fluids: 23:59 Date Last Intake of Solids: 12/25/18 Time Last Intake of Solids: 23:59 Past Medical History Medical History AAA (abdominal aortic aneurysm) PCP MONITORING Anxiety Cardiomegaly Chronic constipation GERD (gastroesophageal reflux disease) Glaucoma RT EYE Hiatal hernia History of benign breast biopsy History of migraine History of recent steroid use RECENTLY PRESCRIBED PREDNISONE FOR RA x 3 WEEKS. LAST DOSE 08/28/18 History of squamous cell carcinoma Hyperlipidemia Hypertension Mitral regurgitation Mild to Moderate Osteoarthritis Pulmonary hypertension Moderate (Pulmonary Artery Systolic Pressure - 52-57 mmHg) Raynaud's disease Restless leg syndrome Rheumatoid arthritis Sleep apnea DOES NOT TOLERATE CPAP Tricuspid regurgitation Moderate Exercise / Class Metabolic Activity IV < 2 Limit ADL/Bedbound Past Family History Family History Mother Family history of diabetes mellitus Past Surgical History Surgical History History of cardiac cath 2016 - [facility] - NO STENTS/ANGIOPLASTY History of colonoscopy History of esophagogastroduodenoscopy (EGD) History of eye surgery RT EYE X 2 - LASER SECONDARY TO GLAUCOMA History of foot surgery RT History of squamous cell carcinoma excision History of total knee replacement LEFT Status post total right knee replacement Past Anesthesia History No Hx of Anesthesia Complications and No Family Hx of Anesthesia Complications History of PONV No Hx of PONV and No Hx of Motion Sickness Social History Smoking Status: Never smoker Hx Alcohol Use: No Hx Substance Use: No substance use type: does not use Physical Exam Vital Signs Last Vital Signs Temp 36.6 C 12/26/18 07:29 Pulse 76 12/26/18 07:29 Resp 18 12/26/18 07:29 BP 169/85 H 12/26/18 13:22 Pulse Ox 95 12/26/18 07:29 Testing Laboratory Results 12/25/18 17:07 12/25/18 17:07 PT 10.5 Seconds (9.0-12.0) 12/25/18 17:07 INR 1.0 (0.9-1.1) 12/25/18 17:07 APTT 27.4 Seconds (21.0-31.0) 12/25/18 17:07
[2018-12-26] MEDS ORDERED: BACITRACIN INJ 50,000 UNIT VIAL ONE ×2 (14:56→16:12)
--- NOTE | 2018-12-26 15:06 | Anesthesiology Consultation ---
Date of Service December 26, 2018 Assessment & Plan (1) Encounter for pre-operative examination: Chart Review Chart Review: Acceptable Risk for Surgery and Patient NOT seen in Pre Admission Testing Consults Requested none History Surgery Operation Date: 12/26/18 08:20 Proposed Procedures p Right Knee Incision and Drainage Status Post Total Knee, Possible Poly Exchange - Pieter Herring DO Height/Weight Height: 5 ft 6 in Weight: 122.5 kg (BMI 43.6) Allergies Allergy/AdvReac Type Severity Reaction Status Date / Time No Known Allergies Allergy Verified 09/26/18 06:13 Medications Home Medications Medication Instructions Recorded Confirmed Last Taken Adult Multivitamin Gummies 1 dose PO QPM 09/04/18 12/25/18 12/22/18 Slow Fe 142 mg PO Q OTHER DAY 09/04/18 12/25/18 12/24/18 amlodipine 2.5 mg PO QAM 09/04/18 12/25/18 12/25/18 2.5 mg benazepril 20 mg PO QAM 09/04/18 12/25/18 12/25/18 20 mg carvedilol 3.125 mg PO BID 09/04/18 12/25/18 12/25/18 08:00 cholecalciferol (vitamin D3) 2,000 unit PO QAM 09/04/18 12/25/18 12/24/18 [Vitamin D3] clonazepam 0.5 mg PO DAILY PRN 09/04/18 12/25/18 12/21/18 duloxetine 30 mg PO QAM 09/04/18 12/25/18 12/25/18 30mg furosemide 40 mg PO QAM 09/04/18 12/25/18 12/24/18 08:00 pantoprazole 40 mg PO QPM 09/04/18 12/25/18 12/24/18 16:00 polyethylene glycol 3350 [Miralax] 17 g PO HS 09/04/18 12/25/18 12/23/18 19:00 potassium chloride [Klor-Con 10] 10 meq PO QAM 09/04/18 12/25/18 12/25/18 0800 ranitidine HCl 150 mg PO HS PRN 09/04/18 12/25/18 09/26/18 04:00 ropinirole [Requip] 2 mg PO HS 03/12/25/18 12/24/18 19:00 simvastatin 20 mg PO PM 09/04/18 12/25/18 12/24/18 sodium chloride 1,000 mg PO BID #14 tab 10/01/18 12/25/18 1 Day Ago ~12/24/18 1900 oxycodone 5 mg PO Q4H PRN #30 tab 10/17/18 12/25/18 Unknown Active Medications Generic Name Dose Route Start Last Admin Trade Name Elle PRN Reason Stop Dose Admin Sodium Chloride 1,000 mls @ 15 mls/hr 12/26/18 06:00 12/26/18 05:43 Nss 1000ml IV 12/29/18 00:39 15 mls/hr .Q24H HIMA Administration Vancomycin HCl 1,750 mg/ 535 mls @ 200 mls/hr 12/26/18 06:00 12/26/18 05:42 Sodium Chloride IV 02/06/19 05:59 Infused Q12H HIMA Infusion NPO Date Last Intake of Fluids: 12/25/18 Time Last Intake of Fluids: 23:59 Date Last Intake of Solids: 12/25/18 Time Last Intake of Solids: 23:59 Past Medical History Medical History AAA (abdominal aortic aneurysm) PCP MONITORING Anxiety Cardiomegaly Chronic constipation GERD (gastroesophageal reflux disease) Glaucoma RT EYE Hiatal hernia History of benign breast biopsy History of migraine History of recent steroid use RECENTLY PRESCRIBED PREDNISONE FOR RA x 3 WEEKS. LAST DOSE 08/28/18 History of squamous cell carcinoma Hyperlipidemia Hypertension Mitral regurgitation Mild to Moderate Osteoarthritis Pulmonary hypertension Moderate (Pulmonary Artery Systolic Pressure - 52-57 mmHg) Raynaud's disease Restless leg syndrome Rheumatoid arthritis Sleep apnea DOES NOT TOLERATE CPAP Tricuspid regurgitation Moderate Past Family History Family History Mother Family history of diabetes mellitus Past Surgical History Surgical History History of cardiac cath 2016 - [facility] - NO STENTS/ANGIOPLASTY History of colonoscopy History of esophagogastroduodenoscopy (EGD) History of eye surgery RT EYE X 2 - LASER SECONDARY TO GLAUCOMA History of foot surgery RT History of squamous cell carcinoma excision History of total knee replacement LEFT Status post total right knee replacement Social History Smoking Status: Never smoker Hx Alcohol Use: No Hx Substance Use: No substance use type: does not use Physical Exam Vital Signs Last Vital Signs Temp 36.6 C 12/26/18 07:29 Pulse 76 12/26/18 07:29 Resp 18 12/26/18 07:29 BP 169/85 H 12/26/18 13:22 Pulse Ox 95 12/26/18 07:29 Testing Laboratory Results 12/25/18 17:07 12/25/18 17:07 PT 10.5 Seconds (9.0-12.0) 12/25/18 17:07 INR 1.0 (0.9-1.1) 12/25/18 17:07 APTT 27.4 Seconds (21.0-31.0) 12/25/18 17:07 Chest X-Ray Date: 09/11/18 [facility], [place] [phone] XRay Report Patient: KEYANNA MELGAR AAdmit Date: 09/11/18 MR#: [id number] [facility] Acct ID:[id number]: [facility] Zip[facility] [place] [address] Age: 78Location: ASU Sex: F Room/Bed: Att Phy: Pieter Herring D.O.Diagnosis: RIGHT KNEE OSTEOARTHRITIS Summer Phy: Zoe Logan D.O.Service Date: 09/11/18 [facility] Phy: Zoe Logan D.O.Interpreting Phy: Jayesh Fox MD Admit Phy: Ordering Phy: Pieter Herring D.O. cc: ~ XR chest Pre-admission PA/Lat CLINICAL HISTORY: Preoperative chest COMPARISON STUDY: 01/03/2017 FINDINGS: The heart remains enlarged. There is stable elevation/eventration right hemidiaphragm. There is mild chronic interstitial thickening. There is no lobar consolidation. There are no pleural effusions.[ IMPRESSION: Stable cardiomegaly. No acute findings. Electronically signed by: Jayesh Fox M.D. 09/11/2018 12:18 PM Dictated: 09/11/18 1217 Transcribed: 09/11/18 1217 Cervical Spine Date: 09/11/18 LATERAL CERVICAL SPINE RADIOGRAPHS WITH FLEXION AND EXTENSION CLINICAL HISTORY: PAT, RA COMPARISON STUDY: Cervical spine radiograph January 03, 2017. FINDINGS: C7 is partially obscured on this exam. There is no evidence for C1-C2 instability during flexion or extension. There is moderate to severe multilevel disc space narrowing, osteophytosis and facet arthrosis. IMPRESSION: 1. No evidence for cervical spine instability during flexion and extension. 2. Moderate to severe multilevel degenerative disc disease and facet arthrosis. Electronically signed by: Jeff Kearney M.D. 09/11/2018 12:20 PM
[2018-12-26] MEDS ORDERED: BUPIVACAINE 0.5 % 5 MG/1 ML PF 10ML VIAL ONE (15:15)
--- NOTE | 2018-12-26 17:01 | Operative Report ---
Post Operative Report Pre & Post Diagnosis Operation Date: 12/26/18 08:20 Pre-Op Diagnosis: INFECTED TOTAL KNEE Post-Op Diagnosis: INFECTED TOTAL KNEE Procedure Operation Date: 12/26/18 08:20 Actual Procedures p Right Knee Incision and Drainage Status Post Total Knee, Poly Exchange(Right) 2 size 5 x 10- Pieter Herring DO Surgeon Pieter Herring DO Stitching Department Supervisor Lemuel UGARTE Estimated Blood Loss 5 Findings Consistent with Post-Op Diagnosis Patient presents with pinhole size wound draining serous fluid from the knee over the course of the last 10 days new onset had followed after surgery 3 weeks post ruptured quad tendon had washout quad tendon repair subcu repair was doing well until proximal me 10 days prior developed some drainage serous drainage was cultured sed rate CRP were within normal limits at times surgery was noted be communication after injection of sterile saline into the knee joint from the area outside of the operative field the fluid did communicate with the subcu pocket of serous fluid Specimens Right poly-as well as culture aerobic and anaerobic Drains Medium bore Hemovac Complications none Disposition Accompanied Patient To Recovery: No Disposition: Recovery Room Indications Patient presents after having had a total knee replacement 3 weeks post having had a fall with dehiscence of her wound subsequently 10 days ago developed serous drainage pimple in the midportion of her incision the patient presents today for washout and I&D possible poly-change time of the skin incision there is a small area appears that could be communicating with the joint space for this reason a 18-gauge needle was placed in sterile saline was injected into the joint which did come out through the small 2 x 2 millimeter punctate area for this reason the medial arthrotomy was then performed the poly-change Description of Procedure After proper prepping and draping the right lower extremity incision made over t he region of the incision the subcutaneous serous fluid was all irrigated debridement lavage 3 L of bacitracin impregnated solution knee was inspected and flexed there is a small area measuring approximately by 2 mm which was concerning for communicating with the joint subsequently injection placed outside of the wound was placed into the knee joint and fluid did not come through this small punctate area for this reason a medial arthrotomy was performed the poly-was removed the components were checked no sign of loosening was noted the wound was irrigated with Serous Incision Is Synovectomy Was Performed Cultures Were Taken and Sent for Aerobic Anaerobic Culture Wound Was Thoroughly Irrigated Debridement As Well As Synovectomy Having Been Performed a Versa Jet Was Used to Also Complete Synovectomy and Then the Wound Having Been Thoroughly Irrigated the Poly-Was Replaced with a 5 x [address] a Deep Wound the Medial Proptosis Closed #2 FiberWire Subcu Was Closed with 020 Vicryl Skin Was Closed with Yoselyn As Well As a 2-0 Nylon Sterile Compressive Dressings Placed As Well As Knee Immobilizer Patient Taken Recovery in Stable Condition. Please Note Lemuel UGARTE Was Necessary Prepping Draping Retraction Wound Closure Defect Subcu Skin Was Necessary for the Case I attest to the content of the Intraoperative Record and any orders documented therein. Any exceptions are noted below.
--- NOTE | 2018-12-26 18:04 | Anesthesiology Progress Note ---
Date of Service December 26, 2018 Anesthesia Post Procedure Vital Signs Vital Signs: Temp Pulse Pulse Resp BP Pulse Ox 12/26/18 18:00 36.4 C L 72 16 169/87 H 96 12/26/18 17:50 72 21 170/92 H 93 12/26/18 17:40 78 24 149/91 H 96 12/26/18 17:30 72 19 127/60 100 12/26/18 17:24 36.4 C L 78 12 119/72 100 12/26/18 13:22 169/85 H 12/26/18 07:29 36.6 C 76 18 179/82 H 95 12/25/18 23:08 36.6 C 72 16 150/79 H 92 12/25/18 19:28 92 Pain Intensity Right Knee: Pain Intensity: 0 Transfer of Care Handoff Completed per policy Notes Mental Status: alert / awake / arousable Patient Amnestic to Procedure: Yes Nausea / Vomiting: adequately controlled Pain: adequately controlled Airway Patency, RR, SpO2: stable & adequate BP & HR: stable & adequate Hydration State: stable & adequate Neuraxial Anesthesia: was administered and sensory block is resolving Anesthetic Complications: no major complications apparent and Pt Satisfied with anesthetic care
--- NOTE | 2018-12-26 18:09 | XRay Report ---
XR knee RT 2V routine CLINICAL HISTORY: Postoperative evaluation. COMPARISON: Right knee radiographs October 16, 2018. FINDINGS: Alignment of the right knee arthroplasty is anatomic. There is no fracture or unexpected r adiopaque foreign body. Skin edwin and drains are noted. IMPRESSION: Expected postoperative appearance of right knee arthroplasty. Electronically signed by: Jeff Kearney M.D. 12/26/2018 6:08 PM
[2018-12-26] MEDS ORDERED: LABETALOL HCL IV 5 MG/ML 20ML IV PRN (18:11)
[2018-12-26] MEDS ORDERED: ePHEDrine sulfate 50 MG/ML AMP IV PRN (18:11)
[2018-12-26] MEDS ORDERED: PHENYLEPHRINE 100MCG/ML 5ML SYR IV PRN (18:11)
[2018-12-26] MEDS ORDERED: ATROPINE SULFATE 0.1 MG/ML 10ML SYR IV PRN (18:11)
[2018-12-26] MEDS ORDERED: ONDANSETRON INJ 2 MG/ML 2 ML VIAL IV PRN ×2 (18:11→18:18)
[2018-12-26] MEDS ORDERED: MAGNESIUM HYDROXIDE SUSP 30 ML UDC PO PRN (18:18)
[2018-12-26] MEDS ORDERED: BISACODYL 10 MG SUPP PR PRN (18:18)
[2018-12-26] MEDS ORDERED: clonazePAM 0.5 MG TAB PO PRN (18:18)
[2018-12-26] MEDS ORDERED: HYDROmorphone INJ 0.5 MG/0.5 ML SYR IV PRN (18:18)
[2018-12-26] MEDS ORDERED: NALOXONE HCL 0.4 MG/1 ML VIAL/CARP IV PRN (18:18)
[2018-12-26] MEDS ORDERED: METOCLOPRAMIDE HCL INJ 5 MG/ML 2 ML VIAL IV PRN (18:18)
[2018-12-26] MEDS ORDERED: OXYCODONE HCL IR 5 MG TAB (IMMEDIATE RELEASE) PO PRN (18:18)
[2018-12-26] MEDS: CARVEDILOL 3.125 MG TAB PO SCH (21:09)
[2018-12-26] MEDS: SIMVASTATIN 20 MG TAB PO SCH (21:09)
[2018-12-26] MEDS: SODIUM CHLORIDE 1 GM TABLET PO SCH (21:09)
[2018-12-26] MEDS: DOCUSATE SODIUM 100 MG CAP PO SCH (21:09)
[2018-12-26] MEDS: ROPINIROLE HCL 1 MG TABLET PO SCH (21:09)
[2018-12-26] MEDS: ACETAMINOPHEN 500 MG TAB PO SCH (21:09)
[2018-12-26] MEDS: SODIUM CHLORIDE 0.9% 1000ML 1,000 ML IV SCH (21:10)
[2018-12-26] MEDS: POLYETHYLENE (MIRALAX) 17 GM PACK PO SCH (21:10)
[2018-12-26] MEDS: SENNA 8.6 MG TAB PO SCH (21:10)
[2018-12-27] MEDS: SODIUM CHLORIDE 0.9% 1000ML 1,000 ML IV SCH (05:25)
[2018-12-27] MEDS: VANCOMYCIN HCL 1,750 MG in SODIUM CHLORIDE 0.9% 500 ML IV SCH ×2 (05:26→18:33)
[2018-12-27] MEDS: ACETAMINOPHEN 500 MG TAB PO SCH ×3 (05:27→21:41)
[2018-12-27] MEDS ORDERED: VANCOMYCIN TROUGH ONE (05:30)
[2018-12-27 05:35] LABS: Hematocrit (blood only) 35.4 % (37-47); Hemoglobin 11.3 g/dL (12.0-16.0); Mean Corpuscular Hgb Conc 31.9 g/dL (32-36); Mean Corpuscular Volume 93.9 fL (80-100); Mean Platelet Volume 9.1 fL (7.4-10.4); Platelet Count 235 K/uL (130-400); RDW Coefficient of Variation 14.3 % (11.5-14.5); RDW Standard Deviation 48.8 fL (36.4-46.3); Red Blood Count 3.77 M/uL (4.2-5.4); White Blood Count 5.51 K/uL (4.8-10.8)
[2018-12-27 05:53] LABS: BUN Creatinine Ratio 15.5 (10-20); Calcium 8.6 mg/dl (8.5-10.1); Creatinine Clr Calc Pharmacy 85.2 ml/min; Est GFR (African American) 89.7; Est GFR (Non-African American) 77.4; Potassium 4.4 mmol/L (3.5-5.1)
--- NOTE | 2018-12-27 08:19 | Anesthesiology Progress Note ---
Date of Service December 27, 2018 Anesthesia Post Procedure Vital Signs Vital Signs: Temp Pulse Pulse Pulse Resp BP Pulse Ox 12/27/18 07:55 36.8 C 83 18 176/89 H 95 12/27/18 03:14 36.4 C L 77 16 165/92 H 90 12/26/18 23:03 36.7 C 80 16 148/80 H 92 12/26/18 21:22 37.1 C 86 16 157/91 H 91 12/26/18 20:48 36.8 C 71 16 160/88 H 91 12/26/18 19:48 36.8 C 69 16 163/86 H 92 12/26/18 18:48 36.7 C 68 16 160/84 H 92 12/26/18 18:20 36.6 C 73 18 168/79 H 91 12/26/18 18:05 72 20 161/89 H 93 12/26/18 18:00 36.4 C L 72 16 169/87 H 96 12/26/18 17:50 72 21 170/92 H 93 12/26/18 17:40 78 24 149/91 H 96 12/26/18 17:30 72 19 127/60 100 12/26/18 17:24 36.4 C L 78 12 119/72 100 12/26/18 13:22 169/85 H Pain Intensity Right Knee: Pain Intensity: 0 Notes Mental Status: alert / awake / arousable Patient Amnestic to Procedure: Yes Nausea / Vomiting: adequately controlled Pain: adequately controlled Airway Patency, RR, SpO2: stable & adequate BP & HR: stable & adequate Hydration State: stable & adequate Neuraxial Anesthesia: was administered and sensory block resolved Anesthetic Complications: no major complications apparent
--- NOTE | 2018-12-27 08:28 | Pharmacy Report ---
Pharmacy Abx Dose Short Note - Date of Service December 27, 2018 - Assessment & Plan Assessment 78 year old F receiving vancomycin for treatment of MRSA knee infection Day # 3 of antimicrobial therapy- previously on bactrim outpatient Plan Vancomycin * Trough level of 18.7 mcg/mL is therapeutic- this was drawn ~10.4 hours from previous dose * Will continue current dose for now as therapeutic and drawn slightly early and therefore "true" trough may be lower, however, patient at risk for accumulation with BMI >35, will obtain additional trough level tomorrow AM * Goal trough level 15-20 mcg/mL * Trough ordered for 12/28 @ 0630 AM Pharmacy will continue to follow and will adjust dose/frequency as necessary. Thank you.
[2018-12-27] MEDS: DOCUSATE SODIUM 100 MG CAP PO SCH ×2 (08:58→21:39)
[2018-12-27] MEDS: DULOXETINE HCL 30 MG CAP PO SCH (08:59)
[2018-12-27] MEDS: CHOLECALCIFEROL 1,000 UNITS TAB PO SCH (08:59)
[2018-12-27] MEDS: MULTIVITAMIN TAB PO SCH (08:59)
[2018-12-27] MEDS: POTASSIUM CHLORIDE 10 MEQ TABCR PO SCH (09:00)
[2018-12-27] MEDS ORDERED: FERROUS SULFATE 325 MG TAB PO SCH ×2 (09:00→21:00)
[2018-12-27] MEDS: FUROSEMIDE 40 MG TAB PO SCH (09:00)
[2018-12-27] MEDS: SODIUM CHLORIDE 1 GM TABLET PO SCH ×2 (09:01→21:40)
[2018-12-27] MEDS: AMLODIPINE BESYLATE 5 MG TAB PO SCH (09:05)
[2018-12-27] MEDS: ENALAPRIL MALEATE 10 MG TAB PO SCH (09:06)
[2018-12-27] MEDS: CARVEDILOL 3.125 MG TAB PO SCH ×2 (09:06→21:40)
[2018-12-27] MEDS ORDERED: PANTOprazole 40 MG TAB PO STA (11:44)
[2018-12-27] MEDS ORDERED: Nursing to Pharmacy Communication ONE (11:57)
[2018-12-27] MEDS ORDERED: cefTRIAXone SODIUM 2,000 MG in DEXTROSE 5% 50 ML IV SCH (15:00)
--- NOTE | 2018-12-27 15:11 | Orthopedic Progress Note ---
Date of Service December 27, 2018 Assessment & Plan (1) Postoperative infection of knee: POD 1 s/p I/D Left TKA with poly change. Had a discussion with the patient about her surgery and post op plans. All questions answered at this time. Follow cx's for now. ID team consulted and appreciate input. Continue PT/OT. WBAT with immobilizer on. No ROM of the knee at this time. DVT prophylaxis with ASA bid, SCD's, JAELYN beckmane. 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 Subjective POD 1 s/p I/D Right TKA with Poly change. Pt sitting in chair at bedside. A/O x 3. No complaints. Pain controlled. Multiple questions about surgery and post op plans. Denies SOB, CP, LH. Physical Exam Physical Exam: Dressings C/D/I. Calves soft, NT. NV intact. Toes mobile. HV drainage approx 200 for the day. Results & Data Vital Signs (Past 12 Hours) Vital Signs Temp Pulse Resp BP BP Pulse Ox 12/27/18 11:56 37.0 C 78 16 150/83 H 94 12/27/18 09:04 86 170/85 H 12/27/18 07:55 36.8 C 83 18 176/89 H 95 12/27/18 03:14 36.4 C L 77 16 165/92 H 90 Laboratory Results Laboratory Results WBC 5.51 K/uL (4.8-10.8) 12/27/18 05:22 RBC 3.77 M/uL (4.2-5.4) L 12/27/18 05:22 Hgb 11.3 g/dL (12.0-16.0) L 12/27/18 05:22 Hct 35.4 % (37-47) L 12/27/18 05:22 MCV 93.9 fL (80-100) 12/27/18 05:22 MCH 30.0 pg (25-34) 12/27/18 05:22 MCHC 31.9 g/dL (32-36) L 12/27/18 05:22 RDW Std Deviation 48.8 fL (36.4-46.3) H 12/27/18 05:22 RDW Coeff of Prabhakar 14.3 % (11.5-14.5) 12/27/18 05:22 Plt Count 235 K/uL (130-400) 12/27/18 05:22 MPV 9.1 fL (7.4-10.4) 12/27/18 05:22 Immature Gran % (Auto) 0.2 % 12/25/18 17:07 Neut % (Auto) 63.0 % 12/25/18 17:07 Lymph % (Auto) 21.5 % 12/25/18 17:07 [place] % (Auto) 10.2 % 12/25/18 17:07 Eos % (Auto) 4.3 % 12/25/18 17:07 Baso % (Auto) 0.8 % 12/25/18 17:07 Immature Gran # (Auto) 0.01 K/uL (0.00-0.02) 12/25/18 17:07 Neut # (Auto) 3.07 K/uL (1.4-6.5) 12/25/18 17:07 Lymph # (Auto) 1.05 K/uL (1.2-3.4) L 12/25/18 17:07 [place] # (Auto) 0.50 K/uL (0.11-0.59) 12/25/18 17:07 Eos # (Auto) 0.21 K/uL (0-0.5) 12/25/18 17:07 Baso # (Auto) 0.04 K/uL (0-0.2) 12/25/18 17:07 PT 10.5 Seconds (9.0-12.0) 12/25/18 17:07 INR 1.0 (0.9-1.1) 12/25/18 17:07 APTT 27.4 Seconds (21.0-31.0) 12/25/18 17:07 PTT Ratio 1.0 12/25/18 17:07 Sodium 138 mmol/L (136-145) 12/27/18 05:22 Potassium 4.4 mmol/L (3.5-5.1) D 12/27/18 05:22 Chloride 106 mmol/L (98-107) 12/27/18 05:22 Carbon Dioxide 27 mmol/L (21-32) 12/27/18 05:22 Anion Gap 5.0 (3-11) 12/27/18 05:22 BUN 12 mg/dl (7-18) 12/27/18 05:22 Creatinine 0.75 mg/dl (0.6-1.2) 12/27/18 05:22 Est Cr Clr Drug Dosing 85.2 ml/min 12/27/18 05:22 Est GFR ( Amer) 89.7 12/27/18 05:22 Est GFR (Non-Af Amer) 77.4 12/27/18 05:22 BUN/Creatinine Ratio 15.5 (10-20) 12/27/18 05:22 Glucose 145 mg/dl (70-99) H 12/27/18 05:22 Calcium 8.6 mg/dl (8.5-10.1) 12/27/18 05:22 Vancomycin Trough 18.7 mcg/ml (See Comment) 12/27/18 05:22 Diagnostic Findings Microbiology 12/26/18 15:53 Knee,Right Gram Stain - Final 12/26/18 15:53 Knee,Right Aerobic and Anaerobic Culture - Preliminary Gram negative bacilli
--- NOTE | 2018-12-27 19:40 | Infectious Disease Progress Nt ---
Date of Service December 27, 2018 Assessment & Plan (1) Postoperative infection of knee: Patient with right knee infection following knee replacement surgery, with cultures positive for MRSA, now status post I&D and poly-exchange, with cultures growing gram-negative bacilli. Ceftriaxone added pending final identification and sensitivities. Will follow. (2) MRSA (methicillin resistant Staphylococcus aureus) infection: Subjective POD 1 s/p I/D Right TKA with Poly exchange. Pt sitting in chair at bedside. A/O x 3. No complaints. Pain controlled. Multiple questions about surgery and post op plans. Denies SOB, CP, LH. Cultures now growing gram-negative bacilli. Review of Systems Review of Systems: All systems reviewed & are unremarkable except as noted in HPI & below Physical Exam Constitutional: WD/WN, vitals as above comfortable; no acute distress Eyes: PERRL, conjunctivae normal, anicteric sclerae ENMT: external ear and nose normal, oropharynx normal Neck: trachea midline, no thyromegaly neck nontender Respiratory: normal respiratory effort, lungs clear to auscultation normal percussion; does not use accessory muscles Cardiovascular: Rate/Rhythm: regular rate and regular rhythm Heart Sounds: normal S1 and normal S2; no gallop, no murmur and no cardiac rub Vessels: normal peripheral pulses; no JVD Gastrointestinal (Abdomen): normal bowel sounds, soft, nontender, no hepatosplenomegaly Musculoskeletal: no cyanosis or clubbing, extremities motor strength 5/5 Spine: thoracic spine normal to inspection and lumbar spine normal to inspection; no cervical spinal tenderness Skin: no rashes Surgical dressing intact Neurologic: patellar DTR's 2+ bilat, sensation intact no focal motor deficits Psychiatric: A+Ox3, euthymic affect Orientation: cooperative Lymphatic: no cervical or axillary lymphadenopathy no inguinal lymphadenopathy Results & Data Vital Signs (Past 12 Hours) Vital Signs Temp Pulse Resp BP BP Pulse Ox 12/27/18 15:14 36.9 C 76 16 143/75 H 97 12/27/18 11:56 37.0 C 78 16 150/83 H 94 12/27/18 09:04 86 170/85 H 12/27/18 07:55 36.8 C 83 18 176/89 H 95 Laboratory Results Short CBC 12/27/18 Range/Units 05:22 WBC 5.51 (4.8-10.8) K/uL Hgb 11.3 L (12.0-16.0) g/dL Hct 35.4 L (37-47) % Plt Count 235 (130-400) K/uL BMP 12/27/18 05:22 Sodium 138 Potassium 4.4 D Chloride 106 Carbon Dioxide 27 BUN 12 Creatinine 0.75 Glucose 145 H Calcium 8.6 Diagnostic Findings Microbiology 12/26/18 15:53 Knee,Right Gram Stain - Final 12/26/18 15:53 Knee,Right Aerobic and Anaerobic Culture - Preliminary Gram negative bacilli
[2018-12-27] MEDS: ROPINIROLE HCL 1 MG TABLET PO SCH (21:39)
[2018-12-27] MEDS: SIMVASTATIN 20 MG TAB PO SCH (21:39)
[2018-12-27] MEDS: SENNA 8.6 MG TAB PO SCH (21:41)
[2018-12-27] MEDS: POLYETHYLENE (MIRALAX) 17 GM PACK PO SCH (21:43)
[2018-12-27] MEDS: ASPIRIN 81 MG ECTAB PO SCH (21:50)
[2018-12-28] MEDS ORDERED: VANCOMYCIN TROUGH ONE ×2 (05:30→06:30)
[2018-12-28] MEDS: VANCOMYCIN HCL 1,750 MG in SODIUM CHLORIDE 0.9% 500 ML IV SCH (06:12)
[2018-12-28] MEDS: ACETAMINOPHEN 500 MG TAB PO SCH ×3 (06:12→21:56)
[2018-12-28 06:27] LABS: Creatinine Clr Calc Pharmacy 87.5 ml/min; Est GFR (African American) 92.7
[2018-12-28] MEDS: POTASSIUM CHLORIDE 10 MEQ TABCR PO SCH (08:49)
[2018-12-28] MEDS: ENALAPRIL MALEATE 10 MG TAB PO SCH (08:50)
[2018-12-28] MEDS: CHOLECALCIFEROL 1,000 UNITS TAB PO SCH (08:50)
[2018-12-28] MEDS: PANTOprazole 40 MG TAB PO SCH (08:50)
[2018-12-28] MEDS: ASPIRIN 81 MG ECTAB PO SCH ×2 (08:50→20:28)
[2018-12-28] MEDS: MULTIVITAMIN TAB PO SCH (08:50)
[2018-12-28] MEDS: DOCUSATE SODIUM 100 MG CAP PO SCH ×2 (08:51→20:21)
[2018-12-28] MEDS: CARVEDILOL 3.125 MG TAB PO SCH ×2 (08:51→20:27)
[2018-12-28] MEDS: SODIUM CHLORIDE 1 GM TABLET PO SCH ×2 (08:51→20:28)
[2018-12-28] MEDS: FUROSEMIDE 40 MG TAB PO SCH (08:51)
[2018-12-28] MEDS: AMLODIPINE BESYLATE 5 MG TAB PO SCH (08:51)
[2018-12-28] MEDS: DULOXETINE HCL 30 MG CAP PO SCH (08:52)
--- NOTE | 2018-12-28 10:13 | Pharmacy Report ---
Pharmacy Abx Dose Short Note - Date of Service December 28, 2018 - Assessment & Plan Microbiology 12/26/18 15:53 Knee,Right Gram Stain - Final 12/26/18 15:53 Knee,Right Aerobic and Anaerobic Culture - Preliminary Pseudomonas aeruginosa Assessment 78 year old F receiving IV Vancomycin and Rocephin for treatment of MRSA right knee infection, now growing pseudomonas Day # 4 of IV vancomycin therapy. Plan Vancomycin * Trough level of 27.1 mcg/mL is supratherapeutic * Vancomycin 1750mg IV given today at 0600 * Goal trough level 15 to 20 mcg/mL * HOLD Vancomycin for now, then draw random level ordered for: 12/29/18 with AM labs (~24 hours after dose) DC IV rocephin Cipro 750mg PO BID for pseudomonas growing in right knee culture Pharmacy will continue to follow and will adjust dose/frequency as necessary. Thank you.
[2018-12-28] MEDS: CIPROFLOXACIN 250 MG TAB PO SCH ×2 (11:52→20:27)
--- NOTE | 2018-12-28 16:09 | Orthopedic Progress Note ---
Date of Service December 28, 2018 Assessment & Plan (1) Postoperative infection of knee: POD 2 s/p I/D Left TKA with poly change. All questions answered about antibx at this time. Cx's as noted above. Pt placed on Cipro. Ceftriaxone dc'd. Continue to follow cx's Continue PT/OT. WBAT with immobilizer on. No ROM of the knee at this time. DVT prophylaxis with ASA bid, SCD's, JAELYN hose. DC planning - Planning for PO antibx for home use. Subjective Postop day 2 status post I&D right TKA with polyethylene bearing change. Patient is sitting up in her chair at the bedside. She is awake and alert and oriented x3. No current complaints at this time. Pain is controlled. Dr. Arzate is present during the visit. Questions asked about her antibiotics. Physical Exam Physical Exam: Prevena is clean, dry, intact. No overt drainage in the collection unit. Calves are soft nontender. Neurovascular intact. Toes are mobile. Results & Data Vital Signs (Past 12 Hours) Vital Signs Temp Pulse Pulse Resp BP Pulse Ox 12/28/18 15:06 37.0 C 77 18 132/50 L 94 12/28/18 08:11 36.4 C L 82 18 156/79 H 94 Laboratory Results Laboratory Results WBC 5.51 K/uL (4.8-10.8) 12/27/18 05:22 RBC 3.77 M/uL (4.2-5.4) L 12/27/18 05:22 Hgb 11.3 g/dL (12.0-16.0) L 12/27/18 05:22 Hct 35.4 % (37-47) L 12/27/18 05:22 MCV 93.9 fL (80-100) 12/27/18 05:22 MCH 30.0 pg (25-34) 12/27/18 05:22 MCHC 31.9 g/dL (32-36) L 12/27/18 05:22 RDW Std Deviation 48.8 fL (36.4-46.3) H 12/27/18 05:22 RDW Coeff of Prabhakar 14.3 % (11.5-14.5) 12/27/18 05:22 Plt Count 235 K/uL (130-400) 12/27/18 05:22 MPV 9.1 fL (7.4-10.4) 12/27/18 05:22 Immature Gran % (Auto) 0.2 % 12/25/18 17:07 Neut % (Auto) 63.0 % 12/25/18 17:07 Lymph % (Auto) 21.5 % 12/25/18 17:07 [place] % (Auto) 10.2 % 12/25/18 17:07 Eos % (Auto) 4.3 % 12/25/18 17:07 Baso % (Auto) 0.8 % 12/25/18 17:07 Immature Gran # (Auto) 0.01 K/uL (0.00-0.02) 12/25/18 17:07 Neut # (Auto) 3.07 K/uL (1.4-6.5) 12/25/18 17:07 Lymph # (Auto) 1.05 K/uL (1.2-3.4) L 12/25/18 17:07 [place] # (Auto) 0.50 K/uL (0.11-0.59) 12/25/18 17:07 Eos # (Auto) 0.21 K/uL (0-0.5) 12/25/18 17:07 Baso # (Auto) 0.04 K/uL (0-0.2) 12/25/18 17:07 PT 10.5 Seconds (9.0-12.0) 12/25/18 17:07 INR 1.0 (0.9-1.1) 12/25/18 17:07 APTT 27.4 Seconds (21.0-31.0) 12/25/18 17:07 PTT Ratio 1.0 12/25/18 17:07 Sodium 138 mmol/L (136-145) 12/27/18 05:22 Potassium 4.4 mmol/L (3.5-5.1) D 12/27/18 05:22 Chloride 106 mmol/L (98-107) 12/27/18 05:22 Carbon Dioxide 27 mmol/L (21-32) 12/27/18 05:22 Anion Gap 5.0 (3-11) 12/27/18 05:22 BUN 12 mg/dl (7-18) 12/27/18 05:22 Creatinine 0.73 mg/dl (0.6-1.2) 12/28/18 05:38 Est Cr Clr Drug Dosing 87.5 ml/min 12/28/18 05:38 Est GFR ( Amer) 92.7 12/28/18 05:38 Est GFR (Non-Af Amer) 80.0 12/28/18 05:38 BUN/Creatinine Ratio 15.5 (10-20) 12/27/18 05:22 Glucose 145 mg/dl (70-99) H 12/27/18 05:22 Calcium 8.6 mg/dl (8.5-10.1) 12/27/18 05:22 Vancomycin Trough 27.1 mcg/ml (See Comment) 12/28/18 05:38 Diagnostic Findings Microbiology 12/26/18 15:53 Knee,Right Gram Stain - Final 12/26/18 15:53 Knee,Right Aerobic and Anaerobic Culture - Preliminary Pseudomonas aeruginosa
[2018-12-28] MEDS: POLYETHYLENE (MIRALAX) 17 GM PACK PO SCH (20:21)
[2018-12-28] MEDS: SENNA 8.6 MG TAB PO SCH (20:21)
[2018-12-28] MEDS: ROPINIROLE HCL 1 MG TABLET PO SCH (20:28)
[2018-12-28] MEDS: SIMVASTATIN 20 MG TAB PO SCH (20:28)
--- NOTE | 2018-12-29 05:01 | Infectious Disease Progress Nt ---
Date of Service December 28, 2018 Assessment & Plan (1) Postoperative infection of knee: Patient with right knee infection following knee replacement surgery, with cultures positive for MRSA, now status post I&D and poly-exchange, with cultures growing Pseudomonas. Started on oral ciprofloxacin, Await final cultures. (2) MRSA (methicillin resistant Staphylococcus aureus) infection: Subjective Postop day 2 status post I&D right TKA with polyethylene bearing change. Patient is sitting up in her chair at the bedside. She is awake and alert and oriented x3. No current complaints at this time. Pain is controlled. No fever. No other new complaints. Culture now growing Pseudomonas. Review of Systems Review of Systems: All systems reviewed & are unremarkable except as noted in HPI & below Physical Exam Constitutional: WD/WN, vitals as above comfortable; no acute distress Eyes: PERRL, conjunctivae normal, anicteric sclerae ENMT: external ear and nose normal, oropharynx normal Neck: trachea midline, no thyromegaly neck nontender Respiratory: normal respiratory effort, lungs clear to auscultation normal percussion; does not use accessory muscles Cardiovascular: Rate/Rhythm: regular rate and regular rhythm Heart Sounds: normal S1 and normal S2; no gallop, no murmur and no cardiac rub Vessels: normal peripheral pulses; no JVD Gastrointestinal (Abdomen): normal bowel sounds, soft, nontender, no hepatosplenomegaly Musculoskeletal: no cyanosis or clubbing, extremities motor strength 5/5 Spine: thoracic spine normal to inspection and lumbar spine normal to inspection; no cervical spinal tenderness Skin: no rashes Neurologic: patellar DTR's 2+ bilat, sensation intact no focal motor deficits Psychiatric: A+Ox3, euthymic affect Orientation: cooperative Lymphatic: no cervical or axillary lymphadenopathy no inguinal lymphadenopathy Results & Data Vital Signs (Past 12 Hours) Vital Signs Temp Pulse Resp BP Pulse Ox 12/28/18 23:14 36.6 C 73 18 115/67 94 12/28/18 20:24 77 125/67 Laboratory Results [facility] 12/28/18 05:38 Creatinine 0.73 Diagnostic Findings Microbiology 12/26/18 15:53 Knee,Right Gram Stain - Final 12/26/18 15:53 Knee,Right Aerobic and Anaerobic Culture - Preliminary Pseudomonas aeruginosa
[2018-12-29] MEDS: ACETAMINOPHEN 500 MG TAB PO SCH ×2 (05:42→13:26)
[2018-12-29] MEDS: AMLODIPINE BESYLATE 5 MG TAB PO SCH (08:33)
[2018-12-29] MEDS: ENALAPRIL MALEATE 10 MG TAB PO SCH (08:33)
[2018-12-29] MEDS: SODIUM CHLORIDE 1 GM TABLET PO SCH (08:34)
[2018-12-29] MEDS: PANTOprazole 40 MG TAB PO SCH (08:34)
[2018-12-29] MEDS: CIPROFLOXACIN 250 MG TAB PO SCH (08:34)
[2018-12-29] MEDS: CARVEDILOL 3.125 MG TAB PO SCH (08:34)
[2018-12-29] MEDS: POTASSIUM CHLORIDE 10 MEQ TABCR PO SCH (08:34)
[2018-12-29] MEDS: FUROSEMIDE 40 MG TAB PO SCH (08:34)
[2018-12-29] MEDS: ASPIRIN 81 MG ECTAB PO SCH (08:34)
[2018-12-29] MEDS: DULOXETINE HCL 30 MG CAP PO SCH (08:35)
[2018-12-29] MEDS: DOCUSATE SODIUM 100 MG CAP PO SCH (08:35)
[2018-12-29] MEDS: MULTIVITAMIN TAB PO SCH (08:37)
[2018-12-29] MEDS: CHOLECALCIFEROL 1,000 UNITS TAB PO SCH (08:38)
[2018-12-29 09:29] LABS: Creatinine Clr Calc Pharmacy 88.8 ml/min; Est GFR (African American) 94.3; Est GFR (Non-African American) 81.3
--- NOTE | 2018-12-29 09:40 | Pharmacy Report ---
Pharmacy Abx Dose Short Note - Date of Service December 29, 2018 - Assessment & Plan Laboratory Tests 12/29/18 08:47 Random Vancomycin 18.1 Microbiology 12/26/18 15:53 Knee,Right Gram Stain - Final 12/26/18 15:53 Knee,Right Aerobic and Anaerobic Culture - Preliminary Pseudomonas aeruginosa Assessment 78 year old F receiving IV Vancomycin and PO Cipro for treatment of MRSA right knee infection, now growing pseudomonas Day # 5 of IV vancomycin therapy. Patient was on Q12 hour dosing but was accumulating d/t obesity (BMI 43.6kg/m2). Day #2 PO Cipro. Plan Vancomycin * Random level of 18.1 mcg/mL is therapeutic, about 24 hours after last dose * Change to 1750 mg IV every 24 hours * Goal trough level 15 to 20 mcg/mL * Trough level ordered for: 12/31/18 Cipro 750mg PO BID for pseudomonas growing in right knee culture Pharmacy will continue to follow and will adjust dose/frequency as necessary. Thank you.
[2018-12-29] MEDS ORDERED: VANCOMYCIN HCL 1,750 MG in SODIUM CHLORIDE 0.9% 500 ML IV ONE (09:45)
--- NOTE | 2018-12-29 12:46 | Orthopedic Progress Note ---
Date of Service December 29, 2018 Assessment & Plan (1) Postoperative infection of knee: POD 3 s/p I/D Left TKA with poly change. Pt placed on Cipro. Continued on Vanco as well. Continue PT/OT. WBAT with immobilizer on. No ROM of the knee at this time. DVT prophylaxis with ASA bid, SCD's, JAELYN sierra. DC planning - Planning for PO antibx for home use. Plan for dc to home if ok with ID team. Subjective Postop day 3 status post I&D infected right TKA with polyethylene bearing change. Patient sitting up in her bed eating her lunch. She states she she has somewhat of a loss of her appetite. She has no other complaints at this time. Pain is controlled. Questions asked and answered about the use of the immobilizer. Physical Exam Physical Exam: Prevena wound VAC is in place and functioning. She has scant drainage noted in the collection unit. Calves are soft and nontender. Neurovascular is intact. Toes are mobile. Results & Data Vital Signs (Past 12 Hours) Vital Signs Temp Pulse Resp BP Pulse Ox 12/29/18 07:37 36.7 C 72 15 152/82 H 93
--- NOTE | 2018-12-29 14:46 | Infectious Disease Progress Nt ---
Date of Service December 29, 2018 Assessment & Plan (1) Postoperative infection of knee: Patient with right knee infection following knee replacement surgery, with cultures positive for MRSA, now status post I&D and poly-exchange, with cultures growing Pseudomonas. Patient to be treated with oral ciprofloxacin and Bactrim with latter to cover for possible MRSA infection. Would like to see in 2 weeks in outpatient follow-up. (2) MRSA (methicillin resistant Staphylococcus aureus) infection: Subjective Patient seen in follow-up for right knee infection. Offers no new complaints today. Remains afebrile. Cultures have grown only Pseudomonas. Review of Systems Review of Systems: All systems reviewed & are unremarkable except as noted in HPI & below Physical Exam Constitutional: WD/WN, vitals as above comfortable; no acute distress Eyes: PERRL, conjunctivae normal, anicteric sclerae ENMT: external ear and nose normal, oropharynx normal Neck: trachea midline, no thyromegaly neck nontender Respiratory: normal respiratory effort, lungs clear to auscultation normal percussion; does not use accessory muscles Cardiovascular: Rate/Rhythm: regular rate and regular rhythm Heart Sounds: normal S1 and normal S2; no gallop, no murmur and no cardiac rub Vessels: normal peripheral pulses; no JVD Gastrointestinal (Abdomen): normal bowel sounds, soft, nontender, no hepatospl enomegaly Musculoskeletal: no cyanosis or clubbing, extremities motor strength 5/5 Spine: thoracic spine normal to inspection and lumbar spine normal to inspection; no cervical spinal tenderness Skin: no rashes Neurologic: patellar DTR's 2+ bilat, sensation intact no focal motor deficits Psychiatric: A+Ox3, euthymic affect Orientation: cooperative Lymphatic: no cervical or axillary lymphadenopathy no inguinal lymphadenopathy Results & Data Vital Signs (Past 12 Hours) Vital Signs Temp Pulse Pulse Pulse Resp BP BP 12/29/18 14:31 36.7 C 72 73 77 15 122/71 152/82 H 12/29/18 07:37 36.7 C 72 15 152/82 H Pulse Ox 12/29/18 14:31 93 12/29/18 07:37 93 Laboratory Results [facility] 12/29/18 08:47 Creatinine 0.72 Diagnostic Findings Microbiology 12/26/18 15:53 Knee,Right Gram Stain - Final 12/26/18 15:53 Knee,Right Aerobic and Anaerobic Culture - Preliminary Pseudomonas aeruginosa
[2018-12-29] MEDS ORDERED: SULFAMETHOXAZOLE/TRIMETHOPRIM DS 800/160MG TAB PO SCH (21:00)
[2018-12-30] MEDS ORDERED: VANCOMYCIN HCL 1,750 MG in SODIUM CHLORIDE 0.9% 500 ML IV SCH (09:00)
[2018-12-31] MEDS ORDERED: VANCOMYCIN TROUGH ONE (08:30)
--- NOTE | 2019-01-03 15:07 | Discharge Summary ---
Date of Service date of discharge: December 29, 2018 date of admission: 12/25/18 Admission HPI Per Admitting Provider Ms Melgar is a 78 year old female who is here for a follow up of right knee wound check, she was seen 10 days ago and cultures were obtained which revealed MRSA positive. since that time she has been on Bactrim DS, presents today for recheck. she states that it is unchanged, she denies fever or chills. she reports the drainage has increased over the past 5-6 days. Currently the patient states that the symptoms are moderate. Patient has had previous TKA. 2 weeks post op, she slipped and fell and had a wound dehiscence. on 10-16-18 Dr. Herring performed I & D superficial wound dehiscence. Principal Diagnosis MRSA infection right total knee Discharge Exam Vital Signs Temp 36.7 C 12/29/18 14:31 Pulse 77 12/29/18 14:31 Resp 15 12/29/18 14:31 BP 122/71 12/29/18 14:31 Pulse Ox 93 12/29/18 14:31 Constitutional WD/WN, vitals as above no acute distress Musculoskeletal right knee: NVDI, calf SNT, negative graciela sign. DP palpable, able to wiggle toes/ankle movement without difficulty. Prevena wound vac is clean dry and intact. expected post-operative bruising noted. Discharge Data Allergies Allergy/AdvReac Type Severity Reaction Status Date / Time No Known Allergies Allergy Verified 09/26/18 06:13 Consultations 12/25/18 14:52 Consult Infectious Diseases Routine 12/26/18 18:18 Consult Case Management - Discharge Planning Routine Procedures Performed Operation Date: 12/26/18 08:20 Actual Procedures p Status Post Total Knee, Poly Exchange(Right) - Pieter Herring DO s Right Knee Incision and Drainage (Right) - Pieter Herring DO Hospital Course (1) Postoperative infection of knee: POD 3 s/p I/D Left TKA with poly change. Pt placed on Cipro. Continued on Vanco as well. Continue PT/OT. WBAT with immobilizer on. No ROM of the knee at this time. DVT prophylaxis with ASA bid, SCD's, JAELYN hose. DC planning - Planning for PO antibx for home use. Patient was admitted for a right knee wound of her right TKA, was cultured in the office and positive for MRSA. she was admitted and started on IV Abx, ID was consulted. she then underwent I&D and poly exchange and tolerated the procedure well. Post-operatively, her activity was progressed and well tolerated, her knee was kept in an immobilizer while ambulating. Please refer to daily progress notes and PT notes for complete details. After exam on 12/29/18, patient felt to be stable for discharge home. It was felt patient would be discharged on PO Cipro. Abnormal Labs 12/25/18 12/25/18 12/27/18 17:07 17:07 05:22 RBC 4.17 L 3.77 L Hgb 11.3 L Hct 35.4 L MCHC 31.9 L RDW Std Deviation 49.4 H 48.8 H RDW Coeff of Prabhakar 14.6 H Lymph # (Auto) 1.05 L Glucose 112 H 12/27/18 05:22 RBC Hgb Hct MCHC RDW Std Deviation RDW Coeff of Prabhakar Lymph # (Auto) Glucose 145 H Microbiology 12/26/18 15:53 Knee,Right Gram Stain - Final 12/26/18 15:53 Knee,Right Aerobic and Anaerobic Culture - Final Pseudomonas aeruginosa Total Time Total Time Spent Total Time Spent (In Minutes): 30 Discharge Plan Discharge Items Patient Disposition: Home - Home Health Services Reason For Visit: INFECTED TOTAL KNEE Discharge Diagnosis: Infected Right TKA Discharge Goals: Decrease discomfort, Improve disease control and Increase independence Activity: Per 'Additional Instructions' section Bathing Comment: Ok to shower with Prevena dressing on. Weightbearing: Right weightbearing Weightbearing Comment: as tolerated with Immobilizer on at all times. No ROM of the knee Non-emergency contact: Surgeon Call non-emergency contact if: your pain is not controlled, your temperature is above 101.5, your wound has increased redness and your wound has increased drainage Follow-up/Referrals: Zoe Logan D.O. [Primary Care Provider] - Diet: Regular Addtl Provider Instructions: Continue to use the Immobilizer when ambulating and sleeping. No range of motion of the knee at this time. Once the Prevena dressing is removed, keep the wound covered with 4x4 gauze and jamel wrap. You may shower with the Prevena on and when removed if you are not having a lot of drainage. No tub baths. Do not soak the wound. Continue taking Aspirin twice daily for 30 days. You will be taking antibiotics for 6 weeks. You may need weekly lab work drawn which can be done through Home Health services or at an outpatient lab. Prevena- This is a large suction dressing covering your incision. This will help pull any excess drainage from the wound and allow your incision to heal properly. You may shower with this if you can keep the unit outside of the shower. If any bleeding or leakage is noted please call your doctor's office. This will remain on your incision for 7 days and then should be removed. This can be done yourself or by the home nursing staff if applicable. The entire unit is disposable once removed. Once removed, keep incision clean and dry. If redness or drainage is noted, please call your surgeon. Follow up with Dr Herring in 14 days from the day of surgery. [phone] Dumont in 10-14 days. [phone] Prescriptions: New aspirin [Ecotrin Low Strength] 81 mg Tablet,Delayed Release (Dr/Ec) 81 mg PO BID 30 Days Qty: 60 RF: 0 acetaminophen [Tylenol Extra Strength] 500 mg Tablet 1,000 mg PO Q8 14 Days Qty: 84 RF: 0 oxycodone 5 mg Tablet 5 - 10 mg PO Q6H PRN (Reason: pain) Qty: 30 RF: 0 ciprofloxacin HCl 250 mg Tablet 750 mg PO BID 42 Days Qty: 252 RF: 0 sulfamethoxazole-trimethoprim [Bactrim DS] 800-160 mg tablet 1 tab PO BID 42 Days Qty: 84 RF: 0 Continued furosemide 40 mg Tablet 40 mg PO QAM RF: 0 polyethylene glycol 3350 [Miralax] 17 gram Powder In Packet 17 g PO HS RF: 0 clonazepam 0.5 mg Tablet 0.5 mg PO DAILY PRN (Reason: Anxiety) RF: 0 amlodipine 2.5 mg Tablet 2.5 mg PO QAM RF: 0 potassium chloride [Klor-Con 10] 10 mEq Tablet Extended Release 10 meq PO QAM RF: 0 carvedilol 3.125 mg Tablet 3.125 mg PO BID RF: 0 pantoprazole 40 mg Tablet,Delayed Release (Dr/Ec) 40 mg PO QPM RF: 0 simvastatin 20 mg Tablet 20 mg PO PM RF: 0 ropinirole [Requip] 0.5 mg Tablet 2 mg PO HS RF: 0 benazepril 20 mg Tablet 20 mg PO QAM RF: 0 ranitidine HCl 150 mg Capsule 150 mg PO HS PRN (Reason: Heartburn) RF: 0 duloxetine 30 mg Capsule,Delayed Release(Dr/Ec) 30 mg PO QAM RF: 0 cholecalciferol (vitamin D3) [Vitamin D3] 2,000 unit Capsule 2,000 unit PO QAM RF: 0 Slow Fe 142 mg (45 mg iron) Tablet Extended Release 142 mg PO Q OTHER DAY RF: 0 Adult Multivitamin Gummies 200 mcg Tablet,Chewable 1 dose PO QPM RF: 0 sodium chloride 1 gram tablet 1,000 mg PO BID Qty: 14 RF: 0 Discontinued oxycodone 5 mg Tablet 5 mg PO Q4H PRN (Reason: pain) Qty: 30 RF: 0 Stand-Alone Forms: [place], Opioid Pain Management [employer]/Other Patient Handouts: Infec MRSA Discharge Orders: Discharge Order (Routine); Ordered 12/29/18 Ordered By: Felipe Ortega Admission Data Admit Date/Time: 12/25/18 16:14 Attending Provider: Pieter Herring Admit Provider: Pieter Herring Primary Care Provider: Zoe Logan Other Providers: Virgil Dumont Service: Surgical Services Other Interventions: Discharge Summary Assessment (RN) Last Done: 12/29/18 14:31 DC Date/Time DO NOT enter until pt leaves facility: 12/29/18 15:53
== END 2018-12-29 15:53 | disposition home health service (06) | DRG 464 ==
LOC: 3W 16:14